=== PATIENT | male | born 1935 | race Caucasian/White ===

== ENCOUNTER 2017-08-03 20:24 | Inpatient (IN) | payer MEDICARE ==
[~2017-08-03] VITALS: Ht 175.3 cm; Wt 98.9 kg
[~2017-08-03 20:24] MED LIST: ADV50250 IH; ALBU8.5H4 IH; ASPI-1265 PO; CHOL50006 PO; CYAN100087 PO; FLO0.4C PO; FOLI0.4T2 PO; HCTZ25T PO; LISI40TA4 PO; METR500T PO; MULT-785 PO; SYN0.075T PO; VITA400T10 PO; VITC500T PO
[2017-08-03] MEDS ORDERED: normal saline 1000ML IV soln IVB ONE ×2 (21:25→22:00)
[2017-08-03] MEDS ORDERED: ondansetron/PF 4mg/2ml inj IV ONE (21:25)
[2017-08-03] MEDS ORDERED: morphine 4 MG/ML inj SYRINge IV ONE (21:25)
[2017-08-03] MEDS ORDERED: piperacillin/tazo 3.375gm/50ml 50 ML IV ONE (22:00)
[2017-08-03 22:10] LABS: BASOPHILS % (AUTO) 0.4 % (0-1); EOSINOPHILS % (AUTO) 0.3 % (0-6); HEMATOCRIT 42.2 % (42.0-52.0); HEMOGLOBIN 14.6 g/dl (14.0-17.9); LYMPHOCYTES # (AUTO) 1.3 X10'3 (1.1-4.8); LYMPHOCYTES % (AUTO) 13.9 % (21-51); MEAN CORPUSCULAR HEMOGLOBIN 31.6 PG (27.0-31.0); MEAN CORPUSCULAR HGB CONC 34.5 % (33.0-36.5); MEAN CORPUSCULAR VOLUME 91.5 FL (78-98); MEAN PLATELET VOLUME 7.1 FL (7.4-10.4); MONOCYTES # (AUTO) 0.2 X10'3 (0-0.9); MONOCYTES % (AUTO) 2.7 % (2-12); NEUTROPHILS # (AUTO) 7.7 X10'3 (1.8-7.7); NEUTROPHILS % (AUTO) 82.7 % (42-75); PLATELET COUNT 188 X10'3 (140-440); RED BLOOD COUNT 4.62 X10'6 (4.70-6.10); WHITE BLOOD COUNT 9.3 X10'3 (4.5-11.0)
[2017-08-03 22:22] LABS: PARTIAL THROMBOPLASTIN TIME 21 SECONDS (22-32); PROTHROMBIN TIME 9.9 SECONDS (9.0-12.0)
[2017-08-03 22:25] LABS: ALANINE AMINOTRANSFERASE 49 U/L (12-78); ALBUMIN 2.8 G/DL (3.4-5.0); ALBUMIN/GLOBULIN RATIO 0.7 (1.1-1.5); ALKALINE PHOSPHATASE 55 IU/L (46-116); ANION GAP 10 (8-16); ASPARTATE AMINO TRANSFERASE 23 U/L (10-37); BILIRUBIN,TOTAL 0.3 MG/DL (0.1-1.0); BLOOD UREA NITROGEN 35 MG/DL (7-18); BUN/CREATININE RATIO 22.2 (5.4-32.0); CALCIUM 8.8 MG/DL (8.5-10.1); CHLORIDE 105 MMOL/L (99-107); CREATININE 1.58 MG/DL (0.60-1.10); GLUCOSE 142 MG/DL (70-104); LIPASE 586 U/L (73-393); MAGNESIUM 1.4 MG/DL (1.5-2.4); POTASSIUM 4.8 MMOL/L (3.5-5.1); SODIUM 142 MMOL/L (135-145); TOTAL CARBON DIOXIDE 27.5 MMOL/L (24-32); TOTAL PROTEIN 6.8 G/DL (6.4-8.2); eGFR 42 ML/MIN
[2017-08-03] MEDS ORDERED: ringers solution, lacted 1,000 ML IV SCH (22:54)
[2017-08-03] MEDS ORDERED: ondansetron/PF 4mg/2ml inj IV PRN (22:55)
[2017-08-03] MEDS ORDERED: meperidine/PF 50mg/ml syringe IV PRN ×3 (22:55)
[2017-08-03] MEDS ORDERED: proCHLORperazine 10 MG/2 ml inj IV PRN (22:55)
[2017-08-03] MEDS ORDERED: morphine 4 MG/ML inj SYRINge IV PRN ×2 (22:55)
[2017-08-03] MEDS ORDERED: BUPIVAcaine/PF 2.5 mg/ml (0.25%) 30ml vial ONE (23:01)
[2017-08-03] MEDS ORDERED: LIDOcaine 1% 30ml preserv. free vial ONE (23:01)
[2017-08-03] MEDS ORDERED: midazolam 2 mg/2 ml injection ONE (23:03)
[2017-08-03] MEDS ORDERED: fentaNYL /PF 50mcg/ml 5ml ampule ONE (23:03)
[2017-08-03] MEDS ORDERED: desflurane 240ml liquid inh. IH ONE ×2 (23:05)
[2017-08-04] VITALS (26 sets, daily range): BP systolic 81–180; BP diastolic 40–88
[2017-08-04] MEDS ORDERED: glycopyrrolate 0.2mg/ml inj ONE (00:46)
[2017-08-04] MEDS ORDERED: LIDOcaine 2% (20mg/ml) 5ml vial ONE (00:46)
[2017-08-04] MEDS ORDERED: neostigmine methylsulfate 1 MG/ML 10ml vial ONE (00:46)
[2017-08-04] MEDS ORDERED: rocuronium 10mg/ml inj IV ONE (00:47)
[2017-08-04] MEDS ORDERED: propofol inj 20 ML IV ONE (00:47)
[2017-08-04] MEDS ORDERED: morphine 10mg/ml inj. ONE (00:47)
[2017-08-04] MEDS ORDERED: ondansetron/PF 4mg/2ml inj IV PRN (00:55)
[2017-08-04] MEDS ORDERED: CADD PCA waste documentation MC PRN (00:55)
[2017-08-04] MEDS ORDERED: naloxone 0.4 mg/ml inj IV PRN (00:55)
[2017-08-04] MEDS: HYDROmorphone/NS 1 mg/ml CADD 50 ML IV SCH ×2 (00:55→01:00)
[2017-08-04] MEDS: diltiazem-NS 100mg/100ml 100 ML IV SCH ×2 (01:20→21:45)
[2017-08-04] MEDS ORDERED: MIDAZolam 5mg/ml 2ml vial ONE (01:21)
[2017-08-04] MEDS ORDERED: morphine 4 MG/ML inj SYRINge ONE (01:25)
[2017-08-04] MEDS ORDERED: propofol 1000mg/100ml bottle 100 ML IV PRN (01:27)
[2017-08-04] MEDS ORDERED: midazolam 2 mg/2 ml injection IV PRN (01:30)
[2017-08-04] MEDS ORDERED: fentaNYL/PF 50MCG/1 ML 2ML syringe IV PRN (01:30)
[2017-08-04] MEDS ORDERED: FENTANYL-0.9 % NACL/PF 100 ML IV PRN (02:14)
[2017-08-04 02:30] LABS: ABG BASE EXCESS -7.2 mmol/L (-2.0-3.0); ABG HCO3 17.8 mmol/L (22.0-26.0); ABG OXYGEN SATURATION 93.1 % (95-98); ABG PCO2 (T) 33.5 mmHg (35.0-48.0); ABG PO2 (T) 69.9 mmHg (83-108); FCOHb 0.7 % (0.5-1.5); FMetHb 0.3 % (0.3-1.12); FO2Hb 92.2 % (94-100); MINUTE VOLUME 11 L/min; PATIENT TEMPERATURE 36.2; PEEP 5 cm H2O; RESPIRATORY RATE 16 b/min; RESPIRATORY RATE (OBSERVED) 18 b/min; TIDAL VOLUME 500 mL; TOTAL HEMOGLOBIN 13.7 G/dl (14.0-18.0)
[2017-08-04] MEDS ORDERED: potassium cl 20mEq in 1/2 NS 1,000 ML IV ONE (02:51)
[2017-08-04] MEDS: piperacillin/tazo 3.375gm/50ml 50 ML IV SCH ×2 (02:58→08:21)
[2017-08-04] MEDS: potassium cl 20mEq in 1/2 NS 1,000 ML IV SCH ×3 (02:58→19:37)
[2017-08-04] MEDS: midazolam 100mg in NS 100ml 100 ML IV PRN ×2 (03:38→23:38)
[2017-08-04] MEDS ORDERED: normal saline 1000ml 1,000 ML IV ONE (04:35)
[2017-08-04 05:00] LABS: BASOPHILS % (AUTO) 0.1 % (0-1); EOSINOPHILS % (AUTO) 0.2 % (0-6); HEMATOCRIT 39.3 % (42.0-52.0); HEMOGLOBIN 13.4 g/dl (14.0-17.9); LYMPHOCYTES # (AUTO) 0.4 X10'3 (1.1-4.8); LYMPHOCYTES % (AUTO) 10.1 % (21-51); MEAN CORPUSCULAR HEMOGLOBIN 31.3 PG (27.0-31.0); MEAN CORPUSCULAR HGB CONC 34.2 % (33.0-36.5); MEAN CORPUSCULAR VOLUME 91.6 FL (78-98); MEAN PLATELET VOLUME 7.7 FL (7.4-10.4); MONOCYTES # (AUTO) 0.2 X10'3 (0-0.9); MONOCYTES % (AUTO) 6.9 % (2-12); NEUTROPHILS % (AUTO) 82.7 % (42-75); PLATELET COUNT 147 X10'3 (140-440); RED BLOOD COUNT 4.29 X10'6 (4.70-6.10); RED CELL DISTRIBUTION WIDTH 13.9 % (11.5-14.5); WHITE BLOOD COUNT 3.6 X10'3 (4.5-11.0)
[2017-08-04 05:38] LABS: ALBUMIN 2.1 G/DL (3.4-5.0); ANION GAP 13 (8-16); BLOOD UREA NITROGEN 34 MG/DL (7-18); BUN/CREATININE RATIO 16.9 (5.4-32.0); CALCIUM 7.7 MG/DL (8.5-10.1); CHLORIDE 110 MMOL/L (99-107); CREATININE 2.01 MG/DL (0.60-1.10); GLUCOSE 140 MG/DL (70-104); POTASSIUM 4.5 MMOL/L (3.5-5.1); SODIUM 144 MMOL/L (135-145); TOTAL CARBON DIOXIDE 21.2 MMOL/L (24-32); eGFR 32 ML/MIN
[2017-08-04] MEDS: lactobacillus rhamnosus 10,000 MMU CELLS/CAPSULE PO SCH ×2 (08:00→19:40)
[2017-08-04] MEDS ORDERED: albumin (human) 25% 100 ML IV solution IV ONE (10:10)
[2017-08-04] MEDS: NORepinephrine 8mg/ 250ml NS 250 ML IV SCH ×2 (10:13→20:04)
[2017-08-04 10:45] LABS: BASOPHILS % (AUTO) 0.1 % (0-1); EOSINOPHILS % (AUTO) 0.6 % (0-6); HEMATOCRIT 35.8 % (42.0-52.0); HEMOGLOBIN 12.1 g/dl (14.0-17.9); LYMPHOCYTES # (AUTO) 0.8 X10'3 (1.1-4.8); LYMPHOCYTES % (AUTO) 10.3 % (21-51); MEAN CORPUSCULAR HEMOGLOBIN 30.9 PG (27.0-31.0); MEAN CORPUSCULAR HGB CONC 33.8 % (33.0-36.5); MEAN CORPUSCULAR VOLUME 91.4 FL (78-98); MEAN PLATELET VOLUME 7.1 FL (7.4-10.4); MONOCYTES # (AUTO) 0.4 X10'3 (0-0.9); NEUTROPHILS # (AUTO) 6.3 X10'3 (1.8-7.7); PLATELET COUNT 147 X10'3 (140-440); RED BLOOD COUNT 3.91 X10'6 (4.70-6.10); RED CELL DISTRIBUTION WIDTH 14.2 % (11.5-14.5); WHITE BLOOD COUNT 7.5 X10'3 (4.5-11.0)
[2017-08-04 11:04] LABS: ALANINE AMINOTRANSFERASE 30 U/L (12-78); ALBUMIN 1.7 G/DL (3.4-5.0); ALBUMIN/GLOBULIN RATIO 0.6 (1.1-1.5); ALKALINE PHOSPHATASE 32 IU/L (46-116); ANION GAP 10 (8-16); ASPARTATE AMINO TRANSFERASE 15 U/L (10-37); BILIRUBIN,TOTAL 0.7 MG/DL (0.1-1.0); BLOOD UREA NITROGEN 38 MG/DL (7-18); BUN/CREATININE RATIO 15.7 (5.4-32.0); CALCIUM 7.3 MG/DL (8.5-10.1); CHLORIDE 111 MMOL/L (99-107); CREATININE 2.42 MG/DL (0.60-1.10); GLUCOSE 123 MG/DL (70-104); POTASSIUM 4.5 MMOL/L (3.5-5.1); SODIUM 144 MMOL/L (135-145); TOTAL CARBON DIOXIDE 23.1 MMOL/L (24-32); TOTAL PROTEIN 4.5 G/DL (6.4-8.2); TROPONIN I 0.08 NG/ML (0.0-0.05); eGFR 26 ML/MIN
[2017-08-04 11:11] LABS: ABG BASE EXCESS -5.7 mmol/L (-2.0-3.0); ABG HCO3 18.7 mmol/L (22.0-26.0); ABG OXYGEN SATURATION 97.5 % (95-98); ABG PCO2 (T) 33.1 mmHg (35.0-48.0); FCOHb 0.1 % (0.5-1.5); FMetHb 0.3 % (0.3-1.12); FO2Hb 97.1 % (94-100); MINUTE VOLUME 13 L/min; PEEP 5 cm H2O; RESPIRATORY RATE (OBSERVED) 20 b/min; TOTAL HEMOGLOBIN 12.4 G/dl (14.0-18.0)
[2017-08-04 11:11] LABS: OXYGEN SATURATION (MIXED VEN) 71.8 % (60-80); PO2 MIXED VENOUS (TEMP COR) 37.9 mmHg (35-46)
[2017-08-04 11:25] LABS: TOTAL CELLS COUNTED 100
[2017-08-04 11:26] LABS: PLATELET ESTIMATE NORMAL; TOXIC VACUOLATION 1+
[2017-08-04] MEDS ORDERED: vasopressin inj. 60 UNIT in normal saline 100ml IV soln 97 ML IV SCH (13:00)
[2017-08-04] MEDS: hydrocortisone sod succ/PF 100mg/2ml inj. IV SCH ×2 (14:23→19:39)
[2017-08-04] MEDS: piperacillin/tazobactam inj. 2.25 GM in normal saline 50ml IV IV SCH ×2 (14:23→19:37)
[2017-08-04] MEDS ORDERED: PYRI60TA2 PO (17:06)
[2017-08-04] MEDS: pantoprazole 40 MG vial IV SCH (19:40)
[2017-08-04 20:11] LABS: OXYGEN SATURATION (MIXED VEN) 73.6 % (60-80); PO2 MIXED VENOUS (TEMP COR) 41.4 mmHg (35-46)
[2017-08-05] VITALS (23 sets, daily range): BP systolic 102–182; BP diastolic 44–87
[2017-08-05] MEDS: piperacillin/tazobactam inj. 2.25 GM in normal saline 50ml IV IV SCH ×4 (01:15→20:29)
[2017-08-05] MEDS: mineral oil/petrolatum ophthal oint EACHEYE SCH ×4 (01:15→20:00)
[2017-08-05] MEDS: hydrocortisone sod succ/PF 100mg/2ml inj. IV SCH ×4 (01:16→20:27)
[2017-08-05 02:36] LABS: OXYGEN SATURATION (MIXED VEN) 65.4 % (60-80); PO2 MIXED VENOUS (TEMP COR) 35.4 mmHg (35-46)
[2017-08-05 02:41] LABS: ABG BASE EXCESS -2.7 mmol/L (-2.0-3.0); ABG PCO2 (T) 39.1 mmHg (35.0-48.0); ABG PH (T) 7.371 (7.350-7.450); ABG PO2 (T) 105.1 mmHg (83-108); FCOHb 0.3 % (0.5-1.5); FMetHb 0.3 % (0.3-1.12); FO2Hb 96.4 % (94-100); MINUTE VOLUME 10 L/min; PATIENT TEMPERATURE 37.6; PEEP 5 cm H2O; RESPIRATORY RATE 10 b/min; RESPIRATORY RATE (OBSERVED) 17 b/min; TIDAL VOLUME 500 mL; TOTAL HEMOGLOBIN 11.6 G/dl (14.0-18.0)
[2017-08-05 02:45] LABS: BASOPHILS % (AUTO) 0.2 % (0-1); EOSINOPHILS % (AUTO) 0.2 % (0-6); HEMATOCRIT 32.3 % (42.0-52.0); HEMOGLOBIN 10.9 g/dl (14.0-17.9); LYMPHOCYTES # (AUTO) 0.4 X10'3 (1.1-4.8); LYMPHOCYTES % (AUTO) 3.7 % (21-51); MEAN CORPUSCULAR HEMOGLOBIN 31.2 PG (27.0-31.0); MEAN CORPUSCULAR HGB CONC 33.9 % (33.0-36.5); MEAN CORPUSCULAR VOLUME 92.1 FL (78-98); MEAN PLATELET VOLUME 6.8 FL (7.4-10.4); MONOCYTES # (AUTO) 0.3 X10'3 (0-0.9); MONOCYTES % (AUTO) 2.9 % (2-12); NEUTROPHILS # (AUTO) 10.4 X10'3 (1.8-7.7); PLATELET COUNT 134 X10'3 (140-440); RED BLOOD COUNT 3.51 X10'6 (4.70-6.10); RED CELL DISTRIBUTION WIDTH 14.8 % (11.5-14.5); WHITE BLOOD COUNT 11.2 X10'3 (4.5-11.0)
[2017-08-05 02:56] LABS: ALBUMIN 2.3 G/DL (3.4-5.0); ANION GAP 10 (8-16); BLOOD UREA NITROGEN 30 MG/DL (7-18); BUN/CREATININE RATIO 14.7 (5.4-32.0); CHLORIDE 108 MMOL/L (99-107); CREATININE 2.04 MG/DL (0.60-1.10); GLUCOSE 142 MG/DL (70-104); POTASSIUM 4.8 MMOL/L (3.5-5.1); SODIUM 143 MMOL/L (135-145); TOTAL CARBON DIOXIDE 24.7 MMOL/L (24-32); eGFR 32 ML/MIN
[2017-08-05 03:10] LABS: TOTAL CELLS COUNTED 100
[2017-08-05 03:11] LABS: PLATELET ESTIMATE DECREASED
[2017-08-05 03:13] LABS: TOXIC VACUOLATION 1+
[2017-08-05] MEDS: potassium cl 20mEq in 1/2 NS 1,000 ML IV SCH ×2 (05:33→16:25)
[2017-08-05] MEDS: albuterol 2.5 MG/3 ML nebule NEB SCH ×2 (07:05→11:13)
[2017-08-05] MEDS: pantoprazole 40 MG vial IV SCH ×2 (07:39→20:27)
[2017-08-05] MEDS: lactobacillus rhamnosus 10,000 MMU CELLS/CAPSULE PO SCH ×2 (07:39→20:00)
[2017-08-05] MEDS ORDERED: morphine/NS 5 mg/ml CADD 50 ML IV SCH (11:45)
[2017-08-05] MEDS: MORPHINE CADD 5 MG/ML 50ML IV SCH ×4 (15:00→23:00)
[2017-08-05] MEDS ORDERED: labetalol 20mg/4ml (5mg/ml) syringe IV PRN (16:55)
[2017-08-05] MEDS: diltiazem-NS 100mg/100ml 100 ML IV SCH (17:45)
[2017-08-05] MEDS ORDERED: normal saline 1000ml 1,000 ML IV ONE (17:45)
[2017-08-06] VITALS (18 sets, daily range): BP systolic 115–178; BP diastolic 48–92
[2017-08-06] MEDS: MORPHINE CADD 5 MG/ML 50ML IV SCH ×11 (01:00→23:00)
[2017-08-06] MEDS: mineral oil/petrolatum ophthal oint EACHEYE SCH ×4 (02:00→20:00)
[2017-08-06] MEDS: hydrocortisone sod succ/PF 100mg/2ml inj. IV SCH ×4 (02:32→20:23)
[2017-08-06] MEDS: potassium cl 20mEq in 1/2 NS 1,000 ML IV SCH ×3 (02:32→23:16)
[2017-08-06] MEDS: piperacillin/tazobactam inj. 2.25 GM in normal saline 50ml IV IV SCH ×4 (02:32→20:24)
[2017-08-06 02:55] LABS: BASOPHILS % (AUTO) 0.1 % (0-1); EOSINOPHILS # (AUTO) 0.1 X10'3 (0-0.9); EOSINOPHILS % (AUTO) 0.8 % (0-6); HEMATOCRIT 29.9 % (42.0-52.0); HEMOGLOBIN 10.3 g/dl (14.0-17.9); LYMPHOCYTES # (AUTO) 0.4 X10'3 (1.1-4.8); MEAN CORPUSCULAR HEMOGLOBIN 31.6 PG (27.0-31.0); MEAN CORPUSCULAR HGB CONC 34.4 % (33.0-36.5); MEAN CORPUSCULAR VOLUME 91.9 FL (78-98); MONOCYTES # (AUTO) 0.3 X10'3 (0-0.9); MONOCYTES % (AUTO) 2.6 % (2-12); NEUTROPHILS # (AUTO) 11.6 X10'3 (1.8-7.7); NEUTROPHILS % (AUTO) 93.5 % (42-75); PLATELET COUNT 120 X10'3 (140-440); RED BLOOD COUNT 3.26 X10'6 (4.70-6.10); RED CELL DISTRIBUTION WIDTH 14.5 % (11.5-14.5); WHITE BLOOD COUNT 12.4 X10'3 (4.5-11.0)
[2017-08-06 03:06] LABS: ALBUMIN 1.8 G/DL (3.4-5.0); ANION GAP 7 (8-16); BLOOD UREA NITROGEN 27 MG/DL (7-18); BUN/CREATININE RATIO 17.2 (5.4-32.0); CALCIUM 8.5 MG/DL (8.5-10.1); CHLORIDE 107 MMOL/L (99-107); CREATININE 1.57 MG/DL (0.60-1.10); GLUCOSE 121 MG/DL (70-104); POTASSIUM 4.4 MMOL/L (3.5-5.1); SODIUM 138 MMOL/L (135-145); TOTAL CARBON DIOXIDE 23.6 MMOL/L (24-32); eGFR 43 ML/MIN
[2017-08-06 05:07] LABS: TOTAL CELLS COUNTED 100
[2017-08-06 05:08] LABS: PLATELET ESTIMATE DECREASED
[2017-08-06 07:35] LABS: MAGNESIUM 1.6 MG/DL (1.5-2.4); PHOSPHORUS 3.3 MG/DL (2.3-4.5)
[2017-08-06] MEDS: pantoprazole 40 MG vial IV SCH ×2 (07:35→20:23)
[2017-08-06] MEDS: lactobacillus rhamnosus 10,000 MMU CELLS/CAPSULE PO SCH ×2 (07:43→20:00)
[2017-08-06] MEDS ORDERED: total parenteral nutrition 1 EACH, calcium gluconate 12 MEQ, magnesium 16 MEQ, sodium 8... IV SCH ×14 (11:30)
[2017-08-06] MEDS ORDERED: vasopressin inj. 60 UNIT in normal saline 100ml IV soln 97 ML IV SCH (12:30)
[2017-08-06] MEDS ORDERED: Dextrose 10%-water IV solution 1,000 ML IV PRN (14:18)
[2017-08-06] MEDS: fat emulsion IV 100 ML, MVI, adult No.4 with vit. K 10 ML, Trace element-5 inj. 1 ML in... IV SCH ×4 (15:09)
[2017-08-06] MEDS: albuterol 2.5 MG/3 ML nebule NEB PRN (21:32)
[2017-08-06] MEDS ORDERED: potassium cl 20mEq in 1/2 NS 1,000 ML IV ONE (23:07)
[2017-08-07] VITALS: BP 162/84
[2017-08-07] MEDS: MORPHINE CADD 5 MG/ML 50ML IV SCH ×12 (01:00→23:00)
[2017-08-07] MEDS ORDERED: piperacillin-tazo 2.25gm/50ml 50 ML IV ONE (01:47)
[2017-08-07] MEDS: piperacillin/tazobactam inj. 2.25 GM in normal saline 50ml IV IV SCH ×4 (02:00→20:19)
[2017-08-07] MEDS: mineral oil/petrolatum ophthal oint EACHEYE SCH ×4 (02:00→21:39)
[2017-08-07] MEDS: hydrocortisone sod succ/PF 100mg/2ml inj. IV SCH ×4 (02:21→20:19)
[2017-08-07] MEDS ORDERED: Dextrose 10%-water IV solution 1,000 ML IV PRN (03:51)
[2017-08-07 06:27] LABS: BASOPHILS # (AUTO) 0.1 X10'3 (0-0.2); BASOPHILS % (AUTO) 0.3 % (0-1); EOSINOPHILS # (AUTO) 0.2 X10'3 (0-0.9); EOSINOPHILS % (AUTO) 1.2 % (0-6); HEMATOCRIT 34.4 % (42.0-52.0); HEMOGLOBIN 11.8 g/dl (14.0-17.9); LYMPHOCYTES # (AUTO) 0.4 X10'3 (1.1-4.8); LYMPHOCYTES % (AUTO) 2.2 % (21-51); MEAN CORPUSCULAR HEMOGLOBIN 31.8 PG (27.0-31.0); MEAN CORPUSCULAR HGB CONC 34.4 % (33.0-36.5); MEAN CORPUSCULAR VOLUME 92.4 FL (78-98); MEAN PLATELET VOLUME 7.3 FL (7.4-10.4); MONOCYTES # (AUTO) 0.5 X10'3 (0-0.9); MONOCYTES % (AUTO) 3.1 % (2-12); NEUTROPHILS # (AUTO) 15.9 X10'3 (1.8-7.7); NEUTROPHILS % (AUTO) 93.2 % (42-75); PLATELET COUNT 124 X10'3 (140-440); RED BLOOD COUNT 3.72 X10'6 (4.70-6.10); RED CELL DISTRIBUTION WIDTH 13.9 % (11.5-14.5); WHITE BLOOD COUNT 17.1 X10'3 (4.5-11.0)
[2017-08-07 06:40] LABS: ALANINE AMINOTRANSFERASE 25 U/L (12-78); ALBUMIN/GLOBULIN RATIO 0.5 (1.1-1.5); ALKALINE PHOSPHATASE 66 IU/L (46-116); ANION GAP 9 (8-16); ASPARTATE AMINO TRANSFERASE 15 U/L (10-37); BILIRUBIN,TOTAL 0.5 MG/DL (0.1-1.0); BLOOD UREA NITROGEN 28 MG/DL (7-18); BUN/CREATININE RATIO 19.6 (5.4-32.0); CALCIUM 9.1 MG/DL (8.5-10.1); CHLORIDE 105 MMOL/L (99-107); CREATININE 1.43 MG/DL (0.60-1.10); GLUCOSE 140 MG/DL (70-104); MAGNESIUM 1.8 MG/DL (1.5-2.4); PHOSPHORUS 3.1 MG/DL (2.3-4.5); POTASSIUM 4.2 MMOL/L (3.5-5.1); PREALBUMIN 13.7 MG/DL (19-36); SODIUM 140 MMOL/L (135-145); TOTAL CARBON DIOXIDE 26.2 MMOL/L (24-32); TOTAL PROTEIN 6.4 G/DL (6.4-8.2); TRIGLYCERIDES 206 MG/DL (20-135); eGFR 48 ML/MIN
[2017-08-07 07:30] VITALS: BP 173/94
[2017-08-07 07:56] LABS: TOTAL CELLS COUNTED 100
[2017-08-07 07:57] LABS: PLATELET ESTIMATE DECREASED
[2017-08-07] MEDS ORDERED: enoxaparin 40mg/0.4ml syringe SUBCUT SCH (08:00)
[2017-08-07] MEDS ORDERED: methylnaltrexone br 12mg/0.6ml inj***SubQ only SQ SCH (08:00)
[2017-08-07] MEDS: pantoprazole 40 MG vial IV SCH ×2 (08:00→20:19)
[2017-08-07] MEDS: lactobacillus rhamnosus 10,000 MMU CELLS/CAPSULE PO SCH ×2 (08:00→20:27)
[2017-08-07 12:00] VITALS: BP 163/80
[2017-08-07] MEDS: potassium cl 20mEq in 1/2 NS 1,000 ML IV SCH ×2 (12:40→20:39)
[2017-08-07] MEDS ORDERED: PYRI60TA2 PO (13:19)
[2017-08-07] MEDS ORDERED: LISI40TA4 PO ×2 (13:22→13:23)
[2017-08-07] MEDS ORDERED: LEVO75TA PO (13:22)
[2017-08-07] MEDS: albuterol 2.5 MG/3 ML nebule NEB PRN ×2 (14:30→21:50)
[2017-08-07 14:37] LABS: AMYLASE 113 U/L (25-115); CREATINE KINASE 64 U/L (39-308); LACTATE DEHYDROGENASE 194 U/L (85-227); LIPASE 557 U/L (73-393)
[2017-08-07 14:41] LABS: TROPONIN I 1.12 NG/ML (0.0-0.05)
[2017-08-07] MEDS: lisinopril 20mg tablet PO SCH (15:01)
[2017-08-07] MEDS ORDERED: heparin 10,000 units/1 ML INJ IV ONE (17:45)
[2017-08-07 18:33] LABS: BASOPHILS % (AUTO) 0.1 % (0-1); EOSINOPHILS # (AUTO) 0.2 X10'3 (0-0.9); EOSINOPHILS % (AUTO) 1.4 % (0-6); HEMATOCRIT 33.8 % (42.0-52.0); HEMOGLOBIN 11.3 g/dl (14.0-17.9); LYMPHOCYTES # (AUTO) 0.2 X10'3 (1.1-4.8); LYMPHOCYTES % (AUTO) 1.6 % (21-51); MEAN CORPUSCULAR HGB CONC 33.4 % (33.0-36.5); MEAN CORPUSCULAR VOLUME 92.6 FL (78-98); MEAN PLATELET VOLUME 7.4 FL (7.4-10.4); MONOCYTES # (AUTO) 0.3 X10'3 (0-0.9); MONOCYTES % (AUTO) 2.5 % (2-12); NEUTROPHILS # (AUTO) 12.7 X10'3 (1.8-7.7); NEUTROPHILS % (AUTO) 94.4 % (42-75); PLATELET COUNT 139 X10'3 (140-440); RED BLOOD COUNT 3.65 X10'6 (4.70-6.10); RED CELL DISTRIBUTION WIDTH 14.1 % (11.5-14.5); WHITE BLOOD COUNT 13.4 X10'3 (4.5-11.0)
[2017-08-07 18:42] LABS: INR 0.9 INR; PARTIAL THROMBOPLASTIN TIME 23 SECONDS (22-32); PROTHROMBIN TIME 9.8 SECONDS (9.0-12.0)
[2017-08-07 19:00] VITALS: BP 148/81
[2017-08-07] MEDS: fat emulsion IV 100 ML, MVI, adult No.4 with vit. K 10 ML, Trace element-5 inj. 1 ML in... IV SCH ×4 (20:40)
[2017-08-07] MEDS: aspirin 300mg supp.rect RC SCH (21:34)
[2017-08-08 00:08] VITALS: BP_SYST 146; BP_SYST 148; BP_DIAS 66; BP_DIAS 81
[2017-08-08] MEDS: MORPHINE CADD 5 MG/ML 50ML IV SCH ×12 (01:00→23:00)
[2017-08-08] MEDS: mineral oil/petrolatum ophthal oint EACHEYE SCH ×3 (02:00→14:00)
[2017-08-08] MEDS: hydrocortisone sod succ/PF 100mg/2ml inj. IV SCH ×4 (02:27→20:43)
[2017-08-08] MEDS: piperacillin/tazobactam inj. 2.25 GM in normal saline 50ml IV IV SCH ×2 (02:34→07:26)
[2017-08-08 03:10] LABS: BASOPHILS % (AUTO) 0.1 % (0-1); EOSINOPHILS # (AUTO) 0.1 X10'3 (0-0.9); EOSINOPHILS % (AUTO) 0.8 % (0-6); HEMATOCRIT 31.3 % (42.0-52.0); HEMOGLOBIN 10.8 g/dl (14.0-17.9); LYMPHOCYTES # (AUTO) 0.3 X10'3 (1.1-4.8); LYMPHOCYTES % (AUTO) 2.4 % (21-51); MEAN CORPUSCULAR HEMOGLOBIN 31.5 PG (27.0-31.0); MEAN CORPUSCULAR HGB CONC 34.4 % (33.0-36.5); MEAN CORPUSCULAR VOLUME 91.6 FL (78-98); MEAN PLATELET VOLUME 7.3 FL (7.4-10.4); MONOCYTES # (AUTO) 0.6 X10'3 (0-0.9); MONOCYTES % (AUTO) 5.5 % (2-12); NEUTROPHILS # (AUTO) 10.3 X10'3 (1.8-7.7); NEUTROPHILS % (AUTO) 91.2 % (42-75); PLATELET COUNT 134 X10'3 (140-440); RED BLOOD COUNT 3.41 X10'6 (4.70-6.10); RED CELL DISTRIBUTION WIDTH 14.2 % (11.5-14.5); WHITE BLOOD COUNT 11.3 X10'3 (4.5-11.0)
[2017-08-08 03:27] LABS: ALANINE AMINOTRANSFERASE 28 U/L (12-78); ALBUMIN 1.9 G/DL (3.4-5.0); ALBUMIN/GLOBULIN RATIO 0.5 (1.1-1.5); ALKALINE PHOSPHATASE 78 IU/L (46-116); ANION GAP 9 (8-16); ASPARTATE AMINO TRANSFERASE 16 U/L (10-37); BILIRUBIN,TOTAL 0.4 MG/DL (0.1-1.0); BLOOD UREA NITROGEN 34 MG/DL (7-18); BUN/CREATININE RATIO 24.6 (5.4-32.0); CHLORIDE 103 MMOL/L (99-107); CREATININE 1.38 MG/DL (0.60-1.10); GLUCOSE 196 MG/DL (70-104); MAGNESIUM 1.9 MG/DL (1.5-2.4); PHOSPHORUS 2.5 MG/DL (2.3-4.5); POTASSIUM 3.4 MMOL/L (3.5-5.1); SODIUM 141 MMOL/L (135-145); TOTAL CARBON DIOXIDE 29.1 MMOL/L (24-32); eGFR 50 ML/MIN
[2017-08-08 03:30] LABS: TROPONIN I 0.62 NG/ML (0.0-0.05)
[2017-08-08] MEDS: heparin 10,000 units/1 ML INJ IV PRN ×3 (03:50→12:39)
[2017-08-08] MEDS: albuterol 2.5 MG/3 ML nebule NEB PRN ×4 (04:14→20:24)
[2017-08-08 07:04] VITALS: BP 146/74
[2017-08-08] MEDS: pantoprazole 40 MG vial IV SCH (07:29)
[2017-08-08] MEDS: lisinopril 20mg tablet PO SCH (07:29)
[2017-08-08] MEDS: lactobacillus rhamnosus 10,000 MMU CELLS/CAPSULE PO SCH ×2 (07:29→20:00)
[2017-08-08] MEDS ORDERED: glucagon, human recombinant 1mg kit SUBCUT PRN (08:30)
[2017-08-08] MEDS ORDERED: MESSAGE TO PHARMACY PO ONE (08:30)
[2017-08-08] MEDS ORDERED: insulin Lispro (HumaLOG) vial - multi-dose SQ SCH (08:30)
[2017-08-08] MEDS ORDERED: dextrose 50%-water 50ml dispensing syringe IV PRN ×2 (08:30)
[2017-08-08] MEDS ORDERED: dextrose ORAL solution 15 GM/59 ML bottle PO PRN ×2 (08:30)
[2017-08-08 08:56] LABS: HEMOGLOBIN A1C 6.1 % (4.5-6.2)
[2017-08-08] MEDS: aspirin 300mg supp.rect RC SCH (10:05)
[2017-08-08 11:00] VITALS: BP 156/79
[2017-08-08] MEDS: piperacillin/tazo 3.375gm/50ml 50 ML IV SCH ×2 (14:00→20:42)
[2017-08-08 14:22] LABS: CLARITY,URINE CLEAR (Clear); COLOR,URINE YELLOW (Yellow); GLUCOSE, URINE NEGATIVE (Neg); KETONES,URINE NEGATIVE (Neg); LEUKOCYTE ESTERASE ,URINE NEGATIVE (Neg); NITRITES, URINE NEGATIVE (Neg); OCCULT BLOOD,URINE MODERATE (Neg); PROTEIN,URINE 30 mg/dl (Neg); UROBILINOGEN,URINE 0.2 E.U/dL (0.2-1.0)
[2017-08-08] MEDS: insulin regular, human vial - multi-dose SQ SCH ×2 (14:27→21:09)
[2017-08-08 14:30] LABS: BACTERIA,URINE NONE SEEN /HPF (Neg); MUCUS STRANDS NONE SEEN /LPF (Neg); RBC,URINE 0-2 /HPF (0-2); SQUAMOUS EPITHELIAL CELL,UR NONE SEEN /LPF (FEW); UA COLLECTION TYPE NON-SPECIFIED; WBC,URINE NONE SEEN /HPF (0-4)
[2017-08-08] MEDS: fat emulsion IV 100 ML, MVI, adult No.4 with vit. K 10 ML, Trace element-5 inj. 1 ML in... IV SCH ×4 (15:39)
[2017-08-08] MEDS: normal saline 500ml IV soln 1,000 ML IV SCH (17:45)
[2017-08-08 18:00] VITALS: BP 159/69
[2017-08-08] MEDS ORDERED: potassium Cl 40MEQ/NS 500ml 500 ML IV PRN (18:55)
[2017-08-08] MEDS ORDERED: potassium Cl 20 mEq SR tablet PO PRN (18:55)
[2017-08-08] MEDS: enoxaparin 40mg/0.4ml syringe SUBCUT SCH (20:44)
[2017-08-08 23:53] VITALS: BP 169/80
[2017-08-09] MEDS: MORPHINE CADD 5 MG/ML 50ML IV SCH ×12 (01:00→23:00)
[2017-08-09] MEDS: albuterol 2.5 MG/3 ML nebule NEB PRN ×4 (01:08→20:13)
[2017-08-09] MEDS: piperacillin/tazo 3.375gm/50ml 50 ML IV SCH ×4 (02:25→20:27)
[2017-08-09] MEDS: hydrocortisone sod succ/PF 100mg/2ml inj. IV SCH ×4 (02:25→20:28)
[2017-08-09] MEDS: insulin regular, human vial - multi-dose SQ SCH ×4 (02:45→20:00)
[2017-08-09 03:58] LABS: BASOPHILS % (AUTO) 0.2 % (0-1); EOSINOPHILS # (AUTO) 0.1 X10'3 (0-0.9); EOSINOPHILS % (AUTO) 0.8 % (0-6); HEMATOCRIT 31.3 % (42.0-52.0); HEMOGLOBIN 10.7 g/dl (14.0-17.9); LYMPHOCYTES # (AUTO) 0.5 X10'3 (1.1-4.8); LYMPHOCYTES % (AUTO) 4.6 % (21-51); MEAN CORPUSCULAR HEMOGLOBIN 31.1 PG (27.0-31.0); MEAN CORPUSCULAR VOLUME 91.4 FL (78-98); MEAN PLATELET VOLUME 7.3 FL (7.4-10.4); MONOCYTES # (AUTO) 0.6 X10'3 (0-0.9); MONOCYTES % (AUTO) 6.3 % (2-12); NEUTROPHILS # (AUTO) 8.9 X10'3 (1.8-7.7); NEUTROPHILS % (AUTO) 88.1 % (42-75); PLATELET COUNT 141 X10'3 (140-440); RED BLOOD COUNT 3.43 X10'6 (4.70-6.10); RED CELL DISTRIBUTION WIDTH 13.9 % (11.5-14.5); WHITE BLOOD COUNT 10.1 X10'3 (4.5-11.0)
[2017-08-09 04:12] LABS: ALANINE AMINOTRANSFERASE 66 U/L (12-78); ALBUMIN 1.8 G/DL (3.4-5.0); ALBUMIN/GLOBULIN RATIO 0.5 (1.1-1.5); ALKALINE PHOSPHATASE 89 IU/L (46-116); ANION GAP 6 (8-16); ASPARTATE AMINO TRANSFERASE 36 U/L (10-37); BILIRUBIN,TOTAL 0.5 MG/DL (0.1-1.0); BLOOD UREA NITROGEN 36 MG/DL (7-18); BUN/CREATININE RATIO 27.1 (5.4-32.0); CALCIUM 8.9 MG/DL (8.5-10.1); CHLORIDE 104 MMOL/L (99-107); CREATININE 1.33 MG/DL (0.60-1.10); GLUCOSE 164 MG/DL (70-104); MAGNESIUM 1.8 MG/DL (1.5-2.4); PHOSPHORUS 2.5 MG/DL (2.3-4.5); SODIUM 144 MMOL/L (135-145); TOTAL CARBON DIOXIDE 34.4 MMOL/L (24-32); TOTAL PROTEIN 5.7 G/DL (6.4-8.2); eGFR 52 ML/MIN
[2017-08-09 07:43] LABS: TOTAL CELLS COUNTED 100
[2017-08-09 07:44] LABS: HYPOCHROMASIA 1+; PLATELET ESTIMATE NORMAL; POLYCHROMASIA 1+; TOXIC GRANULATION 2+
[2017-08-09] MEDS: aspirin 300mg supp.rect RC SCH (08:00)
[2017-08-09] MEDS: K and/or MAG REPLACEMENT MC SCH (08:00)
[2017-08-09 08:03] VITALS: BP 181/83
[2017-08-09] MEDS: lisinopril 20mg tablet PO SCH (09:09)
[2017-08-09] MEDS: pantoprazole 40 MG vial IV SCH (09:09)
[2017-08-09] MEDS: enoxaparin 40mg/0.4ml syringe SUBCUT SCH ×2 (09:10→20:27)
[2017-08-09] MEDS: lactobacillus rhamnosus 10,000 MMU CELLS/CAPSULE PO SCH ×2 (09:23→20:28)
[2017-08-09] MEDS ORDERED: hydrALAZINE 20mg/ml inj. IV PRN (09:30)
[2017-08-09] MEDS ORDERED: Potassium Cl inj 40 MEQ in normal saline 250ml IV soln 230 ML IV ONE (09:30)
[2017-08-09] MEDS: fat emulsion IV 100 ML, MVI, adult No.4 with vit. K 10 ML, Trace element-5 inj. 1 ML in... IV SCH ×4 (10:10)
[2017-08-09] MEDS: potassium Cl 40MEQ/NS 500ml 500 ML IV PRN ×2 (10:12→14:59)
[2017-08-09] MEDS: normal saline 1000ml 1,000 ML IV SCH ×3 (10:12→22:56)
[2017-08-09 10:23] LABS: TROPONIN I 0.46 NG/ML (0.0-0.05)
[2017-08-09 11:00] VITALS: BP 188/92
[2017-08-09 17:00] VITALS: BP 165/88
[2017-08-09 18:00] VITALS: BP 178/74
[2017-08-09] MEDS: metoprolol tartrate 25mg tablet PO SCH (20:28)
[2017-08-09 22:00] VITALS: BP 156/74
[2017-08-10] VITALS: BP 144/58
[2017-08-10] MEDS: MORPHINE CADD 5 MG/ML 50ML IV SCH ×12 (01:00→23:00)
[2017-08-10] MEDS: piperacillin/tazo 3.375gm/50ml 50 ML IV SCH ×4 (01:45→20:20)
[2017-08-10] MEDS: hydrocortisone sod succ/PF 100mg/2ml inj. IV SCH ×4 (01:46→20:20)
[2017-08-10] MEDS: albuterol 2.5 MG/3 ML nebule NEB PRN ×3 (01:58→20:52)
[2017-08-10] MEDS: insulin regular, human vial - multi-dose SQ SCH ×4 (02:00→20:00)
[2017-08-10] MEDS: normal saline 1000ml 1,000 ML IV SCH (05:28)
[2017-08-10 05:51] LABS: ALANINE AMINOTRANSFERASE 102 U/L (12-78); ALBUMIN 1.9 G/DL (3.4-5.0); ALBUMIN/GLOBULIN RATIO 0.5 (1.1-1.5); ALKALINE PHOSPHATASE 88 IU/L (46-116); ANION GAP 8 (8-16); ASPARTATE AMINO TRANSFERASE 45 U/L (10-37); BILIRUBIN,TOTAL 0.6 MG/DL (0.1-1.0); BLOOD UREA NITROGEN 38 MG/DL (7-18); BUN/CREATININE RATIO 25.3 (5.4-32.0); CALCIUM 8.8 MG/DL (8.5-10.1); CHLORIDE 106 MMOL/L (99-107); GLUCOSE 117 MG/DL (70-104); MAGNESIUM 1.7 MG/DL (1.5-2.4); PHOSPHORUS 4.2 MG/DL (2.3-4.5); POTASSIUM 3.7 MMOL/L (3.5-5.1); SODIUM 145 MMOL/L (135-145); TOTAL CARBON DIOXIDE 30.6 MMOL/L (24-32); eGFR 45 ML/MIN
[2017-08-10 07:25] VITALS: BP 169/84
[2017-08-10] MEDS: pantoprazole 40 MG vial IV SCH (07:55)
[2017-08-10] MEDS: lactobacillus rhamnosus 10,000 MMU CELLS/CAPSULE PO SCH ×2 (07:55→20:19)
[2017-08-10] MEDS: lisinopril 20mg tablet PO SCH (07:56)
[2017-08-10] MEDS: metoprolol tartrate 25mg tablet PO SCH ×2 (07:56→20:19)
[2017-08-10] MEDS: enoxaparin 40mg/0.4ml syringe SUBCUT SCH ×2 (07:57→20:20)
[2017-08-10] MEDS: K and/or MAG REPLACEMENT MC SCH (08:00)
[2017-08-10] MEDS: aspirin 81mg tab.chew PO SCH (09:51)
[2017-08-10] MEDS ORDERED: HYDROcodone/acetaminophen 10/325mg tab PO PRN (10:00)
[2017-08-10 11:05] VITALS: BP 161/86
[2017-08-10] MEDS: normal saline 500ml IV soln 1,000 ML IV SCH (15:30)
[2017-08-10 18:00] VITALS: BP 164/76
[2017-08-10] MEDS: pyridostigmine br 60mg tablet PO SCH (20:00)
[2017-08-11] VITALS: BP 153/74
[2017-08-11] MEDS: MORPHINE CADD 5 MG/ML 50ML IV SCH ×9 (01:00→17:00)
[2017-08-11] MEDS: insulin regular, human vial - multi-dose SQ SCH ×3 (02:00→14:00)
[2017-08-11] MEDS: pyridostigmine br 60mg tablet PO SCH ×3 (02:00→14:00)
[2017-08-11] MEDS: normal saline 1000ml 1,000 ML IV SCH (02:40)
[2017-08-11] MEDS: piperacillin/tazo 3.375gm/50ml 50 ML IV SCH ×4 (02:53→14:00)
[2017-08-11] MEDS: hydrocortisone sod succ/PF 100mg/2ml inj. IV SCH ×3 (02:53→14:00)
[2017-08-11] MEDS: albuterol 2.5 MG/3 ML nebule NEB PRN ×2 (04:02→13:44)
[2017-08-11 06:27] LABS: ALANINE AMINOTRANSFERASE 81 U/L (12-78); ALBUMIN/GLOBULIN RATIO 0.5 (1.1-1.5); ALKALINE PHOSPHATASE 78 IU/L (46-116); ANION GAP 10 (8-16); ASPARTATE AMINO TRANSFERASE 28 U/L (10-37); BILIRUBIN,TOTAL 0.6 MG/DL (0.1-1.0); BLOOD UREA NITROGEN 41 MG/DL (7-18); BUN/CREATININE RATIO 26.5 (5.4-32.0); CALCIUM 8.8 MG/DL (8.5-10.1); CHLORIDE 105 MMOL/L (99-107); CREATININE 1.55 MG/DL (0.60-1.10); GLUCOSE 122 MG/DL (70-104); MAGNESIUM 1.8 MG/DL (1.5-2.4); PHOSPHORUS 4.3 MG/DL (2.3-4.5); POTASSIUM 3.3 MMOL/L (3.5-5.1); PREALBUMIN 21.9 MG/DL (19-36); SODIUM 145 MMOL/L (135-145); TOTAL CARBON DIOXIDE 30.4 MMOL/L (24-32); TOTAL PROTEIN 6.4 G/DL (6.4-8.2); TRIGLYCERIDES 231 MG/DL (20-135); eGFR 43 ML/MIN
[2017-08-11 07:40] VITALS: BP 143/66
[2017-08-11] MEDS: pantoprazole 40 MG vial IV SCH (07:55)
[2017-08-11] MEDS: metoprolol tartrate 25mg tablet PO SCH (07:56)
[2017-08-11] MEDS: lactobacillus rhamnosus 10,000 MMU CELLS/CAPSULE PO SCH (07:56)
[2017-08-11] MEDS: lisinopril 20mg tablet PO SCH (07:57)
[2017-08-11] MEDS: aspirin 81mg tab.chew PO SCH (07:58)
[2017-08-11] MEDS: potassium Cl 20 mEq SR tablet PO PRN ×2 (07:58→16:44)
[2017-08-11] MEDS: enoxaparin 40mg/0.4ml syringe SUBCUT SCH (07:58)
[2017-08-11] MEDS: K and/or MAG REPLACEMENT MC SCH (08:00)
[2017-08-11 11:30] VITALS: BP 162/78
[2017-08-12] MEDS ORDERED: pantoprazole 40mg Tablet.DR PO SCH (07:30)
== END 2017-08-11 18:46 | DRG 329 ==
LOC: ER 20:24 → ED HOLD 08-04 00:51 → CICU 2S 08-04 02:04 → SUR 3N 08-06 17:03
PROVIDERS: ADMIT Surgery; ATTEND Family Medicine
PROC: 0DT80ZZ Resection of Small Intestine, Open Approach (ICD-10-PCS; principal; 2017-08-04)
PROC: 0DNU0ZZ Release Omentum, Open Approach (ICD-10-PCS; 2017-08-04)
PROC: 03HY32Z Insertion of Monitoring Device into Upper Artery, Percutaneous Approach (ICD-10-PCS; 2017-08-04)
DX: K63.1 Perforation of intestine (nontraumatic) (principal); R65.11 Systemic inflammatory response syndrome (SIRS) of non-infectious origin with acute organ dysfunction; I21.4 Non-ST elevation (NSTEMI) myocardial infarction; R57.8 Other shock; J93.82 Other air leak; N17.9 Acute kidney failure, unspecified; K55.9 Vascular disorder of intestine, unspecified; K57.10 Diverticulosis of small intestine without perforation or abscess without bleeding; G70.00 Myasthenia gravis without (acute) exacerbation; I10 Essential (primary) hypertension; I49.3 Ventricular premature depolarization; J45.909 Unspecified asthma, uncomplicated; K66.0 Peritoneal adhesions (postprocedural) (postinfection); E87.6 Hypokalemia; N40.0 Benign prostatic hyperplasia without lower urinary tract symptoms; Z87.891 Personal history of nicotine dependence; Z79.899 Other long term (current) drug therapy; Z79.82 Long term (current) use of aspirin
CPT/HCPCS: 36415; 36600; 71045; 74176; 80048; 80053; 81001; 82150; 82550; 82803; 82810; 82948; 83036; 83605; 83615; 83690; 83735; 83880; 84100; 84132; 84134; 84443; 84478; 84484; 85018; 85025; 85610; 85730; 87070; 87077; 87186; 88307; 93306; 94002; 94003; 94640; 94760; 96365; 96375; 97110; 97116; 97162; 97530; 99291; A4649; A6213; A6257; A6258; A6449; A7000; C1758; C9113; J0360; J1644; J1650; J1720; J1815; J2001; J2250; J2270; J2405; J2543; J2704; J2710; J3010; J3480; J3490; J7030; J7120; P9047

== ENCOUNTER 2017-10-09 16:50 | Inpatient (IN) | payer MEDICARE ==
[2017-10-09] VITALS (8 sets, daily range): BP systolic 88–110; BP diastolic 33–80
[~2017-10-09] VITALS: Ht 182.9 cm; Wt 85.9 kg
[~2017-10-09 16:50] MED LIST changes: -ADV50250 IH; -ASPI-1265 PO; -CHOL50006 PO; -CYAN100087 PO; -FLO0.4C PO; -FOLI0.4T2 PO; -HCTZ25T PO; -METR500T PO; -MULT-785 PO; +PYRI60TA2 PO; -SYN0.075T PO; -VITA400T10 PO; -VITC500T PO
[2017-10-09] MEDS ORDERED: levoFLOXACIN-Levaquin 750MG/D5 150 ML IV ONE (16:55)
[2017-10-09 17:39] LABS: BASOPHILS % (AUTO) 0.1 % (0-1); EOSINOPHILS % (AUTO) 0 % (0-6); HEMATOCRIT 33.2 % (42.0-52.0); HEMOGLOBIN 11.1 g/dl (14.0-17.9); LYMPHOCYTES % (AUTO) 3.3 % (21-51); MEAN CORPUSCULAR HEMOGLOBIN 29.2 PG (27.0-31.0); MEAN CORPUSCULAR HGB CONC 33.5 % (33.0-36.5); MEAN CORPUSCULAR VOLUME 87.1 FL (78-98); MEAN PLATELET VOLUME 6.5 FL (7.4-10.4); MONOCYTES # (AUTO) 1.3 X10'3 (0-0.9); MONOCYTES % (AUTO) 4.5 % (2-12); NEUTROPHILS # (AUTO) 27.1 X10'3 (1.8-7.7); NEUTROPHILS % (AUTO) 92.1 % (42-75); PLATELET COUNT 373 X10'3 (140-440); RED BLOOD COUNT 3.82 X10'6 (4.70-6.10); RED CELL DISTRIBUTION WIDTH 15.4 % (11.5-14.5)
[2017-10-09 17:41] LABS: WHITE BLOOD COUNT 29.5 X10'3 (4.5-11.0)
[2017-10-09 17:52] LABS: INR 1.2 INR; PARTIAL THROMBOPLASTIN TIME 31 SECONDS (22-32); PROTHROMBIN TIME 12.6 SECONDS (9.0-12.0)
[2017-10-09 17:57] LABS: ALANINE AMINOTRANSFERASE 41 U/L (12-78); ALBUMIN 2.2 G/DL (3.4-5.0); ALBUMIN/GLOBULIN RATIO 0.4 (1.1-1.5); ALKALINE PHOSPHATASE 91 IU/L (46-116); ANION GAP 14 (8-16); ASPARTATE AMINO TRANSFERASE 16 U/L (10-37); BILIRUBIN,TOTAL 0.3 MG/DL (0.1-1.0); BLOOD UREA NITROGEN 25 MG/DL (7-18); BUN/CREATININE RATIO 17.6 (5.4-32.0); CALCIUM 8.9 MG/DL (8.5-10.1); CHLORIDE 102 MMOL/L (99-107); CREATININE 1.42 MG/DL (0.60-1.10); GLUCOSE 125 MG/DL (70-104); POTASSIUM 3.3 MMOL/L (3.5-5.1); SODIUM 135 MMOL/L (135-145); TOTAL CARBON DIOXIDE 19.5 MMOL/L (24-32); TOTAL PROTEIN 7.7 G/DL (6.4-8.2); eGFR 48 ML/MIN
[2017-10-09 18:01] LABS: CLARITY,URINE CLEAR (Clear); COLOR,URINE YELLOW (Yellow); GLUCOSE, URINE NEGATIVE (Neg); KETONES,URINE TRACE mg/dl (Neg); LEUKOCYTE ESTERASE ,URINE NEGATIVE (Neg); NITRITES, URINE NEGATIVE (Neg); OCCULT BLOOD,URINE NEGATIVE (Neg); PROTEIN,URINE 100 mg/dl (Neg); UA COLLECTION TYPE CLN CATCH MIDSTREAM; UROBILINOGEN,URINE 0.2 E.U/dL (0.2-1.0)
[2017-10-09 18:05] LABS: MAGNESIUM 0.7 MG/DL (1.5-2.4)
[2017-10-09 18:06] LABS: MUCUS STRANDS FEW /LPF (Neg); RENAL CELLS, URINE FEW /HPF; SQUAMOUS EPITHELIAL CELL,UR FEW /LPF (FEW); TRANSITIONAL EPI CELLS,URINE FEW /HPF
[2017-10-09 18:07] LABS: BACTERIA,URINE 1+ /HPF (Neg); RBC,URINE 0-2 /HPF (0-2); WBC,URINE 0-4 /HPF (0-4)
[2017-10-09] MEDS ORDERED: TAMS0.4C32 (18:27)
[2017-10-09] MEDS ORDERED: MULT-933 PO (18:27)
[2017-10-09] MEDS ORDERED: FOLI0.4T2 PO (18:27)
[2017-10-09] MEDS ORDERED: UBID50TA3 PO (18:27)
[2017-10-09] MEDS ORDERED: LEVO75TA7 (18:27)
[2017-10-09 18:33] LABS: PLATELET ESTIMATE NORMAL; TOTAL CELLS COUNTED 100
[2017-10-09 18:34] LABS: BURR CELLS 1+
[2017-10-09 18:35] LABS: TOXIC GRANULATION 1+
[2017-10-09] MEDS ORDERED: piperacillin/tazo 3.375gm/50ml 50 ML IV ONE (18:55)
[2017-10-09] MEDS ORDERED: ondansetron/PF 4mg/2ml inj IV ONE (19:00)
[2017-10-09] MEDS: morphine 4 MG/ML inj SYRINge IV PRN ×2 (19:10→20:12)
[2017-10-09] MEDS ORDERED: normal saline 1000ML IV soln IV ONE (19:40)
[2017-10-09] MEDS: magnesium/D5W IVPB 100 ML IV SCH (19:54)
[2017-10-09] MEDS: potassium 10mEq/100ml NS w/LIDOcaine (10mg/bag) IV SCH ×2 (19:54→21:28)
[2017-10-09] MEDS ORDERED: vancomycin/NS 1 GM ADD-VANTAGE 250 ML IV ONE (20:05)
[2017-10-09] MEDS ORDERED: acetaminophen 650mg rectal suppository RC PRN (20:35)
[2017-10-09] MEDS ORDERED: bisacodyl 10mg suppository rectal RC PRN (20:35)
[2017-10-09] MEDS ORDERED: metoclopramide 5 mg/ml inj IV PRN (20:35)
[2017-10-09] MEDS ORDERED: magnesium Cl slow-release 64mg tablet PO PRN (20:35)
[2017-10-09] MEDS ORDERED: potassium Cl 20 mEq SR tablet PO PRN (20:35)
[2017-10-09] MEDS ORDERED: magnesium hydroxide 30ml (MOM) UD suspension PO PRN (20:35)
[2017-10-09] MEDS ORDERED: ALBUTEROL IH PRN (20:35)
[2017-10-09] MEDS ORDERED: morphine 4 MG/ML inj SYRINge IV PRN ×2 (20:35)
[2017-10-09] MEDS ORDERED: diphenhydrAMINE 50 mg/ml inj IV PRN (20:35)
[2017-10-09] MEDS ORDERED: ondansetron/PF 4mg/2ml inj IV PRN (20:35)
[2017-10-09] MEDS ORDERED: diphenhydrAMINE 25mg capsule PO PRN (20:35)
[2017-10-09] MEDS ORDERED: magnesium 2GM in 50ml NS 50 ML IV PRN (20:35)
[2017-10-09] MEDS ORDERED: magnesium 4gm in 100ml NS 100 ML IV PRN (20:35)
[2017-10-09] MEDS ORDERED: acetaminophen 325mg tablet PO PRN ×2 (20:35)
[2017-10-09] MEDS ORDERED: HYDROmorphone inj. 0.5 MG/0.5 ML DISP.SYRIN IV PRN ×2 (20:35)
[2017-10-09] MEDS ORDERED: potassium Cl 40MEQ/NS 500ml 500 ML IV PRN ×2 (20:35)
[2017-10-09] MEDS ORDERED: verapamil 2.5 mg/ml inj IV ONE (20:50)
[2017-10-09] MEDS ORDERED: diltiazem-NS 100mg/100ml 100 ML IV ONE (20:50)
[2017-10-09] MEDS ORDERED: temazepam 15mg capsule PO PRN (21:00)
[2017-10-09 21:05] LABS: AMYLASE 31 U/L (25-115); LIPASE 152 U/L (73-393); PHOSPHORUS 2.9 MG/DL (2.3-4.5)
[2017-10-09] MEDS ORDERED: normal saline 1000ml 1,000 ML IVB ONE (21:24)
[2017-10-09] MEDS: normal saline 1000ml 1,000 ML IV SCH (21:28)
[2017-10-09] MEDS ORDERED: metoprolol tartrate 1mg/ml inj IV ONE (21:35)
[2017-10-09] MEDS ORDERED: diltiazem-NS 100mg/100ml 100 ML IV SCH (21:35)
[2017-10-09] MEDS ORDERED: HYDROmorphone 1 mg/ml syringe IV PRN (21:36)
[2017-10-09 22:08] LABS: TROPONIN I < 0.04 NG/ML (0.0-0.05)
[2017-10-09] MEDS ORDERED: LIDOcaine 1%/PF (10mg/ml) 5ml vial ONE (22:19)
[2017-10-10] VITALS (42 sets, daily range): BP systolic 79–140; BP diastolic 41–78
[2017-10-10] MEDS ORDERED: piperacillin/tazo 4.5gm/100ml 100 ML IV SCH
[2017-10-10] MEDS ORDERED: magnesium/D5W IVPB 100 ML IV ONE (00:20)
[2017-10-10] MEDS: magnesium/D5W IVPB 100 ML IV SCH ×3 (00:22→15:51)
[2017-10-10 00:51] LABS: ABG BASE EXCESS -12.5 mmol/L (-2.0-3.0); ABG HCO3 13.4 mmol/L (22.0-26.0); ABG OXYGEN SATURATION 90.7 % (95-98); ABG PH (T) 7.253 (7.350-7.450); ABG PO2 (T) 69.3 mmHg (83-108); FCOHb 0.3 % (0.5-1.5); FLOW 3 L/min; FMetHb 0.3 % (0.3-1.12); FO2Hb 90.2 % (94-100); PATIENT TEMPERATURE 36.9; RESPIRATORY RATE (OBSERVED) 26 b/min; TOTAL HEMOGLOBIN 12.1 G/dl (14.0-18.0)
[2017-10-10] MEDS ORDERED: normal saline 500ml IV soln 500 ML IV ONE ×4 (01:00→02:55)
[2017-10-10] MEDS ORDERED: diltiazem 5mg/ml 5ml inj. IV ONE (01:00)
[2017-10-10 01:32] LABS: CLARITY,URINE Clear (Clear); COLOR,URINE Yellow (Yellow); GLUCOSE, URINE Negative (Neg); KETONES,URINE Negative (Neg); LEUKOCYTE ESTERASE ,URINE Negative (Neg); NITRITES, URINE Negative (Neg); OCCULT BLOOD,URINE Moderate (Neg); PH,URINE 5.5 (4.8-8.0); PROTEIN,URINE 100 mg/dl (Neg); UROBILINOGEN,URINE 0.2 E.U/dL (0.2-1.0)
[2017-10-10 01:33] LABS: UA COLLECTION TYPE FOLEY CATH
[2017-10-10 01:33] LABS: BASOPHILS # (AUTO) 0.1 X10'3 (0-0.2); BASOPHILS % (AUTO) 0.4 % (0-1); EOSINOPHILS % (AUTO) 0.1 % (0-6); HEMATOCRIT 33.4 % (42.0-52.0); HEMOGLOBIN 11.1 g/dl (14.0-17.9); LYMPHOCYTES # (AUTO) 0.6 X10'3 (1.1-4.8); LYMPHOCYTES % (AUTO) 2.1 % (21-51); MEAN CORPUSCULAR HEMOGLOBIN 29.3 PG (27.0-31.0); MEAN CORPUSCULAR HGB CONC 33.3 % (33.0-36.5); MEAN PLATELET VOLUME 6.8 FL (7.4-10.4); MONOCYTES # (AUTO) 0.6 X10'3 (0-0.9); MONOCYTES % (AUTO) 2.2 % (2-12); NEUTROPHILS # (AUTO) 27.6 X10'3 (1.8-7.7); NEUTROPHILS % (AUTO) 95.2 % (42-75); PLATELET COUNT 330 X10'3 (140-440); RED BLOOD COUNT 3.79 X10'6 (4.70-6.10); RED CELL DISTRIBUTION WIDTH 14.5 % (11.5-14.5)
[2017-10-10 01:35] LABS: WHITE BLOOD COUNT 28.9 X10'3 (4.5-11.0)
[2017-10-10 01:52] LABS: ALBUMIN 1.8 G/DL (3.4-5.0); ANION GAP 16 (8-16); BLOOD UREA NITROGEN 24 MG/DL (7-18); CALCIUM 8.6 MG/DL (8.5-10.1); CHLORIDE 107 MMOL/L (99-107); CREATININE 1.84 MG/DL (0.60-1.10); GLUCOSE 119 MG/DL (70-104); LIPASE 677 U/L (73-393); POTASSIUM 3.4 MMOL/L (3.5-5.1); SODIUM 140 MMOL/L (135-145); TOTAL CARBON DIOXIDE 17.1 MMOL/L (24-32); eGFR 36 ML/MIN
[2017-10-10 01:53] LABS: RBC,URINE 50-100 /HPF (0-2); WBC,URINE NONE SEEN /HPF (0-4)
[2017-10-10 01:54] LABS: AMORPHOUS URATES 3+; BACTERIA,URINE NONE SEEN /HPF (Neg); COARSE GRANULAR CAST 0-3 /LPF (NEGATIVE); MUCUS STRANDS NONE SEEN /LPF (Neg); SQUAMOUS EPITHELIAL CELL,UR NONE SEEN /LPF (FEW)
[2017-10-10 02:50] LABS: PLATELET ESTIMATE NORMAL; TOTAL CELLS COUNTED 100
[2017-10-10] MEDS ORDERED: amiodarone 150mg/dext, iso-os 100 ML IV ONE (04:35)
[2017-10-10] MEDS: amiodarone/D5 360MG/200ML BAG 200 ML IV SCH ×4 (05:24→22:42)
[2017-10-10 05:55] LABS: BASOPHILS # (AUTO) 0.1 X10'3 (0-0.2); BASOPHILS % (AUTO) 0.2 % (0-1); EOSINOPHILS % (AUTO) 0.1 % (0-6); HEMATOCRIT 30.8 % (42.0-52.0); HEMOGLOBIN 10.2 g/dl (14.0-17.9); LYMPHOCYTES # (AUTO) 0.1 X10'3 (1.1-4.8); LYMPHOCYTES % (AUTO) 0.4 % (21-51); MEAN CORPUSCULAR HEMOGLOBIN 29.6 PG (27.0-31.0); MEAN CORPUSCULAR HGB CONC 33.2 % (33.0-36.5); MEAN CORPUSCULAR VOLUME 89.2 FL (78-98); MEAN PLATELET VOLUME 7.3 FL (7.4-10.4); MONOCYTES # (AUTO) 0.7 X10'3 (0-0.9); MONOCYTES % (AUTO) 2.3 % (2-12); NEUTROPHILS # (AUTO) 27.9 X10'3 (1.8-7.7); PLATELET COUNT 313 X10'3 (140-440); RED BLOOD COUNT 3.45 X10'6 (4.70-6.10); RED CELL DISTRIBUTION WIDTH 14.5 % (11.5-14.5)
[2017-10-10 05:58] LABS: ALANINE AMINOTRANSFERASE 25 U/L (12-78); ALBUMIN 1.6 G/DL (3.4-5.0); ALBUMIN/GLOBULIN RATIO 0.4 (1.1-1.5); ALKALINE PHOSPHATASE 73 IU/L (46-116); ANION GAP 14 (8-16); ASPARTATE AMINO TRANSFERASE 18 U/L (10-37); BILIRUBIN,TOTAL 0.6 MG/DL (0.1-1.0); BLOOD UREA NITROGEN 26 MG/DL (7-18); BUN/CREATININE RATIO 12.7 (5.4-32.0); CALCIUM 7.8 MG/DL (8.5-10.1); CHLORIDE 107 MMOL/L (99-107); CREATININE 2.04 MG/DL (0.60-1.10); GLUCOSE 120 MG/DL (70-104); POTASSIUM 3.3 MMOL/L (3.5-5.1); SODIUM 139 MMOL/L (135-145); TOTAL CARBON DIOXIDE 17.8 MMOL/L (24-32); TOTAL PROTEIN 5.9 G/DL (6.4-8.2); eGFR 32 ML/MIN
[2017-10-10 05:59] LABS: WHITE BLOOD COUNT 28.8 X10'3 (4.5-11.0)
[2017-10-10] MEDS ORDERED: albumin (human) 25% 100 ML IV solution IV ONE (06:00)
[2017-10-10 06:01] LABS: MAGNESIUM 0.8 MG/DL (1.5-2.4)
[2017-10-10] MEDS: normal saline 1000ml 1,000 ML IV ONE ×2 (06:42→08:10)
[2017-10-10] MEDS: HYDROcodone/acetaminophen 10/325mg tab PO PRN ×4 (06:55→23:34)
[2017-10-10] MEDS: potassium Cl 20 mEq SR tablet PO PRN ×2 (06:56→12:23)
[2017-10-10] MEDS: normal saline 1000ml 1,000 ML IV SCH ×3 (07:06→16:34)
[2017-10-10 07:15] LABS: BURR CELLS FEW; PLATELET ESTIMATE NORMAL; TOTAL CELLS COUNTED 100
[2017-10-10] MEDS: docusate sod 100mg capsule PO SCH ×2 (08:00→20:00)
[2017-10-10] MEDS ORDERED: lisinopril 20mg tablet PO SCH (08:00)
[2017-10-10] MEDS ORDERED: pantoprazole 40 MG vial IV SCH (08:00)
[2017-10-10] MEDS: K and/or MAG REPLACEMENT MC SCH (08:00)
[2017-10-10] MEDS ORDERED: non-formulary drug (Lisinopril* 40 MG) PO SCH (08:00)
[2017-10-10] MEDS ORDERED: vancomycin/NS 1 GM ADD-VANTAGE 250 ML IV SCH (08:00)
[2017-10-10] MEDS: piperacillin-tazo 2.25gm/50ml 50 ML IV SCH ×3 (08:11→20:25)
[2017-10-10] MEDS: famotidine/PF 10 mg/ml inj IV SCH ×2 (08:17→20:25)
[2017-10-10] MEDS: pyridostigmine br 60mg tablet PO SCH ×3 (09:29→23:34)
[2017-10-10] MEDS: HYDROmorphone 1 mg/ml syringe IV PRN ×2 (09:30→13:39)
[2017-10-10 12:06] LABS: MAGNESIUM 1.8 MG/DL (1.5-2.4); POTASSIUM 3.4 MMOL/L (3.5-5.1)
[2017-10-10] MEDS ORDERED: normal saline 500ml IV soln 1,000 ML IV ONE ×2 (12:20→17:55)
[2017-10-10] MEDS: sucralfate 1gm/10ml UD suspension PO SCH ×3 (12:26→20:25)
[2017-10-10] MEDS: heparin, porcine 5000 units/ml vial SQ SCH ×2 (12:27→20:26)
[2017-10-10] MEDS: micafungin inj 100 MG in normal saline 100ml IV soln 100 ML IV SCH (15:49)
[2017-10-10] MEDS ORDERED: vancomycin inj 1,250 MG in normal saline 250ml IV soln 250 ML IV SCH (21:00)
[2017-10-11] VITALS (56 sets, daily range): BP systolic 82–141; BP diastolic 42–73
[2017-10-11] MEDS: piperacillin-tazo 2.25gm/50ml 50 ML IV SCH ×4 (02:14→20:32)
[2017-10-11] MEDS: albuterol 2.5 MG/3 ML nebule NEB PRN ×2 (04:23→15:17)
[2017-10-11 06:21] LABS: HEMATOCRIT 35.3 % (42.0-52.0); HEMOGLOBIN 11.6 g/dl (14.0-17.9); MEAN CORPUSCULAR HEMOGLOBIN 29.1 PG (27.0-31.0); MEAN CORPUSCULAR HGB CONC 32.9 % (33.0-36.5); MEAN CORPUSCULAR VOLUME 88.4 FL (78-98); MEAN PLATELET VOLUME 6.8 FL (7.4-10.4); PLATELET COUNT 327 X10'3 (140-440); RED BLOOD COUNT 3.99 X10'6 (4.70-6.10); RED CELL DISTRIBUTION WIDTH 15.9 % (11.5-14.5)
[2017-10-11 06:30] LABS: WHITE BLOOD COUNT 27.5 X10'3 (4.5-11.0)
[2017-10-11 06:58] LABS: ANISOCYTOSIS 1+; PLATELET ESTIMATE NORMAL; TOTAL CELLS COUNTED 100
[2017-10-11 06:59] LABS: ALANINE AMINOTRANSFERASE 23 U/L (12-78); ALBUMIN/GLOBULIN RATIO 0.5 (1.1-1.5); ALKALINE PHOSPHATASE 72 IU/L (46-116); ANION GAP 19 (8-16); ASPARTATE AMINO TRANSFERASE 24 U/L (10-37); BILIRUBIN,TOTAL 0.2 MG/DL (0.1-1.0); BLOOD UREA NITROGEN 34 MG/DL (7-18); BUN/CREATININE RATIO 11.1 (5.4-32.0); CALCIUM 8.5 MG/DL (8.5-10.1); CHLORIDE 108 MMOL/L (99-107); CREATININE 3.06 MG/DL (0.60-1.10); GLUCOSE 147 MG/DL (70-104); MAGNESIUM 2.3 MG/DL (1.5-2.4); POLYCHROMASIA FEW; POTASSIUM 3.9 MMOL/L (3.5-5.1); SODIUM 139 MMOL/L (135-145); TOTAL PROTEIN 6.4 G/DL (6.4-8.2); eGFR 20 ML/MIN
[2017-10-11 07:02] LABS: TOTAL CARBON DIOXIDE 11.7 MMOL/L (24-32)
[2017-10-11] MEDS: micafungin inj 100 MG in normal saline 100ml IV soln 100 ML IV SCH (07:45)
[2017-10-11] MEDS: sucralfate 1gm/10ml UD suspension PO SCH (07:45)
[2017-10-11] MEDS: K and/or MAG REPLACEMENT MC SCH (08:00)
[2017-10-11] MEDS: docusate sod 100mg capsule PO SCH ×2 (08:00→20:00)
[2017-10-11] MEDS: pyridostigmine br 60mg tablet PO SCH ×2 (08:36→17:11)
[2017-10-11] MEDS: HYDROcodone/acetaminophen 10/325mg tab PO PRN ×2 (08:37→18:58)
[2017-10-11] MEDS: heparin, porcine 5000 units/ml vial SQ SCH ×2 (08:38→20:32)
[2017-10-11] MEDS: famotidine/PF 10 mg/ml inj IV SCH ×2 (08:38→20:30)
[2017-10-11] MEDS: NORepinephrine 8mg/ 250ml NS 250 ML IV SCH (09:20)
[2017-10-11] MEDS ORDERED: normal saline 1000ml 1,000 ML IV ONE (10:30)
[2017-10-11] MEDS: sodium bicarbonate (8.4%) inj. 150 MEQ in dextrose 5%-water 1,000 ML IV SCH ×2 (10:46→17:11)
[2017-10-11] MEDS: chloestyramine/aspartame 4gm packet PO SCH ×2 (12:52→17:11)
[2017-10-11 13:54] LABS: CLARITY,URINE CLOUDY (Clear); COLOR,URINE YELLOW (Yellow); GLUCOSE, URINE NEGATIVE (Neg); KETONES,URINE NEGATIVE (Neg); LEUKOCYTE ESTERASE ,URINE SMALL (Neg); NITRITES, URINE NEGATIVE (Neg); OCCULT BLOOD,URINE LARGE (Neg); PH,URINE 5.5 (4.8-8.0); PROTEIN,URINE 100 mg/dl (Neg); UROBILINOGEN,URINE 0.2 E.U/dL (0.2-1.0)
[2017-10-11 13:55] LABS: UA COLLECTION TYPE FOLEY CATH
[2017-10-11 14:03] LABS: BACTERIA,URINE 1+ /HPF (Neg); RBC,URINE TNTC /HPF (0-2); SQUAMOUS EPITHELIAL CELL,UR FEW /LPF (FEW)
[2017-10-11 14:04] LABS: WBC,URINE 50-100 /HPF (0-4)
[2017-10-11 14:30] LABS: UA EOSINOPHILS NO EOS /HPF
[2017-10-11 14:32] LABS: MAGNESIUM 1.9 MG/DL (1.5-2.4)
[2017-10-11] MEDS ORDERED: potassium Cl 40MEQ/250ML bag 250 ML IV PRN (14:40)
[2017-10-11] MEDS: potassium Cl 40MEQ/250ML bag 250 ML IV PRN (15:07)
[2017-10-11] MEDS: lactobacillus rhamnosus 10,000 MMU CELLS/CAPSULE PO SCH (20:31)
[2017-10-12] VITALS (23 sets, daily range): BP systolic 80–155; BP diastolic 47–75
[2017-10-12] MEDS: pyridostigmine br 60mg tablet PO SCH ×4 (01:01→23:36)
[2017-10-12] MEDS: sodium bicarbonate (8.4%) inj. 150 MEQ in dextrose 5%-water 1,000 ML IV SCH ×3 (02:53→09:57)
[2017-10-12] MEDS: HYDROcodone/acetaminophen 10/325mg tab PO PRN ×2 (02:54→12:34)
[2017-10-12] MEDS: piperacillin-tazo 2.25gm/50ml 50 ML IV SCH ×4 (02:55→20:15)
[2017-10-12 03:52] LABS: BASOPHILS % (AUTO) 0 % (0-1); EOSINOPHILS # (AUTO) 0.8 X10'3 (0-0.9); HEMATOCRIT 30.3 % (42.0-52.0); HEMOGLOBIN 10.1 g/dl (14.0-17.9); LYMPHOCYTES # (AUTO) 0.3 X10'3 (1.1-4.8); LYMPHOCYTES % (AUTO) 1.4 % (21-51); MEAN CORPUSCULAR HEMOGLOBIN 29.1 PG (27.0-31.0); MEAN CORPUSCULAR HGB CONC 33.4 % (33.0-36.5); MEAN PLATELET VOLUME 6.8 FL (7.4-10.4); MONOCYTES # (AUTO) 0.6 X10'3 (0-0.9); NEUTROPHILS # (AUTO) 18.4 X10'3 (1.8-7.7); NEUTROPHILS % (AUTO) 91.6 % (42-75); PLATELET COUNT 304 X10'3 (140-440); RED BLOOD COUNT 3.48 X10'6 (4.70-6.10); RED CELL DISTRIBUTION WIDTH 15.9 % (11.5-14.5); WHITE BLOOD COUNT 20.1 X10'3 (4.5-11.0)
[2017-10-12 04:08] LABS: ALANINE AMINOTRANSFERASE 21 U/L (12-78); ALBUMIN 1.6 G/DL (3.4-5.0); ALBUMIN/GLOBULIN RATIO 0.4 (1.1-1.5); ALKALINE PHOSPHATASE 68 IU/L (46-116); ANION GAP 13 (8-16); ASPARTATE AMINO TRANSFERASE 18 U/L (10-37); BILIRUBIN,TOTAL 0.3 MG/DL (0.1-1.0); BLOOD UREA NITROGEN 40 MG/DL (7-18); BUN/CREATININE RATIO 10.6 (5.4-32.0); CALCIUM 8.4 MG/DL (8.5-10.1); CHLORIDE 107 MMOL/L (99-107); CREATININE 3.78 MG/DL (0.60-1.10); GLUCOSE 128 MG/DL (70-104); MAGNESIUM 1.9 MG/DL (1.5-2.4); POTASSIUM 3.7 MMOL/L (3.5-5.1); SODIUM 137 MMOL/L (135-145); TOTAL CARBON DIOXIDE 17.2 MMOL/L (24-32); TOTAL PROTEIN 5.3 G/DL (6.4-8.2); eGFR 15 ML/MIN
[2017-10-12] MEDS: NORepinephrine 8mg/ 250ml NS 250 ML IV SCH (04:22)
[2017-10-12] MEDS: heparin, porcine 5000 units/ml vial SQ SCH ×2 (07:31→20:15)
[2017-10-12] MEDS: famotidine/PF 10 mg/ml inj IV SCH ×2 (07:31→20:15)
[2017-10-12] MEDS: lactobacillus rhamnosus 10,000 MMU CELLS/CAPSULE PO SCH ×2 (07:39→20:15)
[2017-10-12 07:51] LABS: TOTAL CELLS COUNTED 100
[2017-10-12 07:52] LABS: ANISOCYTOSIS 1+; BURR CELLS 2+; PLATELET ESTIMATE NORMAL
[2017-10-12] MEDS: K and/or MAG REPLACEMENT MC SCH (08:00)
[2017-10-12] MEDS: docusate sod 100mg capsule PO SCH ×2 (08:00→20:00)
[2017-10-12] MEDS: micafungin inj 100 MG in normal saline 100ml IV soln 100 ML IV SCH (08:24)
[2017-10-12] MEDS ORDERED: ipratropium/albuterol 3ml nebule NEB PRN (11:05)
[2017-10-12] MEDS: chloestyramine/aspartame 4gm packet PO SCH ×2 (11:10→16:15)
[2017-10-12] MEDS: ipratropium/albuterol 3ml nebule NEB SCH ×2 (16:03→20:45)
[2017-10-12] MEDS ORDERED: VANCOMYCIN LEVEL IV ONE (20:30)
[2017-10-13] VITALS (18 sets, daily range): BP systolic 101–137; BP diastolic 48–73
[2017-10-13] MEDS: piperacillin-tazo 2.25gm/50ml 50 ML IV SCH ×4 (01:45→20:27)
[2017-10-13] MEDS: HYDROcodone/acetaminophen 10/325mg tab PO PRN ×2 (01:46→15:00)
[2017-10-13] MEDS: ipratropium/albuterol 3ml nebule NEB SCH ×4 (02:52→20:40)
[2017-10-13 03:56] LABS: BASOPHILS % (AUTO) 0.3 % (0-1); EOSINOPHILS # (AUTO) 0.7 X10'3 (0-0.9); EOSINOPHILS % (AUTO) 5.1 % (0-6); HEMATOCRIT 31.9 % (42.0-52.0); HEMOGLOBIN 10.6 g/dl (14.0-17.9); LYMPHOCYTES # (AUTO) 0.4 X10'3 (1.1-4.8); LYMPHOCYTES % (AUTO) 3.1 % (21-51); MEAN CORPUSCULAR HEMOGLOBIN 28.8 PG (27.0-31.0); MEAN CORPUSCULAR HGB CONC 33.2 % (33.0-36.5); MEAN PLATELET VOLUME 6.8 FL (7.4-10.4); MONOCYTES # (AUTO) 0.4 X10'3 (0-0.9); MONOCYTES % (AUTO) 2.8 % (2-12); NEUTROPHILS # (AUTO) 12.4 X10'3 (1.8-7.7); NEUTROPHILS % (AUTO) 88.7 % (42-75); PLATELET COUNT 246 X10'3 (140-440); RED BLOOD COUNT 3.66 X10'6 (4.70-6.10); RED CELL DISTRIBUTION WIDTH 16.5 % (11.5-14.5)
[2017-10-13 04:11] LABS: ALANINE AMINOTRANSFERASE 17 U/L (12-78); ALBUMIN 1.5 G/DL (3.4-5.0); ALBUMIN/GLOBULIN RATIO 0.4 (1.1-1.5); ALKALINE PHOSPHATASE 109 IU/L (46-116); ANION GAP 12 (8-16); ASPARTATE AMINO TRANSFERASE 14 U/L (10-37); BILIRUBIN,TOTAL 0.4 MG/DL (0.1-1.0); BLOOD UREA NITROGEN 41 MG/DL (7-18); BUN/CREATININE RATIO 9.8 (5.4-32.0); CALCIUM 8.6 MG/DL (8.5-10.1); CHLORIDE 104 MMOL/L (99-107); CREATININE 4.18 MG/DL (0.60-1.10); GLUCOSE 115 MG/DL (70-104); MAGNESIUM 1.8 MG/DL (1.5-2.4); POTASSIUM 3.3 MMOL/L (3.5-5.1); SODIUM 137 MMOL/L (135-145); TOTAL CARBON DIOXIDE 21.1 MMOL/L (24-32); TOTAL PROTEIN 5.3 G/DL (6.4-8.2); eGFR 14 ML/MIN
[2017-10-13] MEDS ORDERED: potassium Cl 20 mEq SR tablet PO PRN (05:25)
[2017-10-13] MEDS: potassium Cl 20 mEq SR tablet PO PRN ×3 (05:46→18:01)
[2017-10-13] MEDS: pyridostigmine br 60mg tablet PO SCH ×2 (07:33→15:00)
[2017-10-13] MEDS: lactobacillus rhamnosus 10,000 MMU CELLS/CAPSULE PO SCH ×2 (07:33→20:27)
[2017-10-13] MEDS: famotidine/PF 10 mg/ml inj IV SCH ×2 (07:33→20:27)
[2017-10-13] MEDS: sodium bicarbonate (8.4%) inj. 150 MEQ in dextrose 5%-water 1,000 ML IV SCH (07:34)
[2017-10-13] MEDS: micafungin inj 100 MG in normal saline 100ml IV soln 100 ML IV SCH (07:35)
[2017-10-13] MEDS: K and/or MAG REPLACEMENT MC SCH (07:35)
[2017-10-13] MEDS: docusate sod 100mg capsule PO SCH ×2 (07:36→20:00)
[2017-10-13] MEDS: heparin, porcine 5000 units/ml vial SQ SCH ×2 (07:37→20:28)
[2017-10-13] MEDS: chloestyramine/aspartame 4gm packet PO SCH ×2 (12:31→15:00)
[2017-10-13] MEDS ORDERED: VANCOMYCIN LEVEL IV ONE (20:30)
[2017-10-14] VITALS (17 sets, daily range): BP systolic 117–165; BP diastolic 57–92
[2017-10-14] MEDS: pyridostigmine br 60mg tablet PO SCH ×3 (01:41→16:00)
[2017-10-14] MEDS: piperacillin-tazo 2.25gm/50ml 50 ML IV SCH ×4 (01:42→19:22)
[2017-10-14] MEDS: ipratropium/albuterol 3ml nebule NEB SCH ×4 (02:55→20:45)
[2017-10-14 04:38] LABS: BASOPHILS % (AUTO) 0 % (0-1); EOSINOPHILS # (AUTO) 0.6 X10'3 (0-0.9); EOSINOPHILS % (AUTO) 7.2 % (0-6); HEMATOCRIT 29.3 % (42.0-52.0); HEMOGLOBIN 9.7 g/dl (14.0-17.9); LYMPHOCYTES # (AUTO) 0.4 X10'3 (1.1-4.8); LYMPHOCYTES % (AUTO) 4.4 % (21-51); MEAN CORPUSCULAR HEMOGLOBIN 28.7 PG (27.0-31.0); MEAN CORPUSCULAR HGB CONC 33.2 % (33.0-36.5); MEAN CORPUSCULAR VOLUME 86.3 FL (78-98); MEAN PLATELET VOLUME 6.5 FL (7.4-10.4); MONOCYTES # (AUTO) 0.4 X10'3 (0-0.9); MONOCYTES % (AUTO) 4.6 % (2-12); NEUTROPHILS # (AUTO) 7.5 X10'3 (1.8-7.7); NEUTROPHILS % (AUTO) 83.8 % (42-75); PLATELET COUNT 212 X10'3 (140-440); RED CELL DISTRIBUTION WIDTH 16.1 % (11.5-14.5); WHITE BLOOD COUNT 8.9 X10'3 (4.5-11.0)
[2017-10-14 05:00] LABS: ALANINE AMINOTRANSFERASE 17 U/L (12-78); ALBUMIN 1.3 G/DL (3.4-5.0); ALBUMIN/GLOBULIN RATIO 0.4 (1.1-1.5); ALKALINE PHOSPHATASE 145 IU/L (46-116); ANION GAP 12 (8-16); ASPARTATE AMINO TRANSFERASE 15 U/L (10-37); BILIRUBIN,TOTAL 0.5 MG/DL (0.1-1.0); BLOOD UREA NITROGEN 40 MG/DL (7-18); BUN/CREATININE RATIO 9.4 (5.4-32.0); CALCIUM 8.2 MG/DL (8.5-10.1); CHLORIDE 104 MMOL/L (99-107); CREATININE 4.25 MG/DL (0.60-1.10); GLUCOSE 111 MG/DL (70-104); MAGNESIUM 1.7 MG/DL (1.5-2.4); POTASSIUM 3.1 MMOL/L (3.5-5.1); SODIUM 138 MMOL/L (135-145); TOTAL CARBON DIOXIDE 22.5 MMOL/L (24-32); eGFR 14 ML/MIN
[2017-10-14] MEDS: fluconazole-Diflucan 200mg/NS 100 ML IV SCH (07:13)
[2017-10-14] MEDS: sodium bicarbonate (8.4%) inj. 150 MEQ in dextrose 5%-water 1,000 ML IV SCH (07:13)
[2017-10-14] MEDS: famotidine/PF 10 mg/ml inj IV SCH ×2 (07:13→19:21)
[2017-10-14] MEDS: lactobacillus rhamnosus 10,000 MMU CELLS/CAPSULE PO SCH ×2 (07:15→19:21)
[2017-10-14] MEDS: heparin, porcine 5000 units/ml vial SQ SCH ×2 (07:16→19:22)
[2017-10-14] MEDS: docusate sod 100mg capsule PO SCH ×2 (07:16→19:01)
[2017-10-14] MEDS: K and/or MAG REPLACEMENT MC SCH (07:21)
[2017-10-14] MEDS: predniSONE 20 mg tablet PO SCH (09:46)
[2017-10-14] MEDS: potassium Cl 40MEQ/250ML bag 250 ML IV PRN (10:49)
[2017-10-14] MEDS: chloestyramine/aspartame 4gm packet PO SCH ×2 (10:54→17:03)
[2017-10-15] MEDS: piperacillin-tazo 2.25gm/50ml 50 ML IV SCH ×4 (01:35→20:11)
[2017-10-15] MEDS: ipratropium/albuterol 3ml nebule NEB SCH ×4 (03:09→21:26)
[2017-10-15 05:59] LABS: MAGNESIUM 1.7 MG/DL (1.5-2.4); POTASSIUM 3.8 MMOL/L (3.5-5.1)
[2017-10-15 06:00] VITALS: BP 150/69
[2017-10-15] MEDS: docusate sod 100mg capsule PO SCH ×2 (08:00→20:00)
[2017-10-15] MEDS: K and/or MAG REPLACEMENT MC SCH (08:00)
[2017-10-15] MEDS: famotidine/PF 10 mg/ml inj IV SCH ×2 (09:29→20:10)
[2017-10-15] MEDS: heparin, porcine 5000 units/ml vial SQ SCH ×2 (09:36→20:10)
[2017-10-15] MEDS: pyridostigmine br 60mg tablet PO SCH ×4 (09:37→23:14)
[2017-10-15] MEDS: predniSONE 20 mg tablet PO SCH (09:37)
[2017-10-15] MEDS: fluconazole-Diflucan 200mg/NS 100 ML IV SCH (09:40)
[2017-10-15] MEDS: lactobacillus rhamnosus 10,000 MMU CELLS/CAPSULE PO SCH ×2 (09:41→20:10)
[2017-10-15 10:00] VITALS: BP 160/91
[2017-10-15] MEDS: chloestyramine/aspartame 4gm packet PO SCH ×2 (12:13→16:00)
[2017-10-15] MEDS: HYDROcodone/acetaminophen 5mg/325mg tablet PO PRN (12:33)
[2017-10-15 15:13] LABS: ALBUMIN 1.7 G/DL (3.4-5.0); ANION GAP 14 (8-16); BLOOD UREA NITROGEN 39 MG/DL (7-18); BUN/CREATININE RATIO 9.4 (5.4-32.0); CALCIUM 8.6 MG/DL (8.5-10.1); CHLORIDE 107 MMOL/L (99-107); CREATININE 4.14 MG/DL (0.60-1.10); GLUCOSE 123 MG/DL (70-104); POTASSIUM 3.8 MMOL/L (3.5-5.1); SODIUM 139 MMOL/L (135-145); TOTAL CARBON DIOXIDE 18.5 MMOL/L (24-32); eGFR 14 ML/MIN
[2017-10-15] MEDS ORDERED: furosemide 40mg/4ml inj IV ONE (15:50)
[2017-10-15 18:00] VITALS: BP 154/75
[2017-10-15 22:00] VITALS: BP 127/57
[2017-10-16] MEDS: piperacillin-tazo 2.25gm/50ml 50 ML IV SCH ×4 (01:12→21:03)
[2017-10-16] MEDS: ipratropium/albuterol 3ml nebule NEB SCH ×4 (02:52→20:42)
[2017-10-16 05:00] VITALS: BP 148/69
[2017-10-16 05:42] LABS: BASOPHILS % (AUTO) 0.3 % (0-1); EOSINOPHILS # (AUTO) 0.1 X10'3 (0-0.9); EOSINOPHILS % (AUTO) 1.4 % (0-6); HEMATOCRIT 28.4 % (42.0-52.0); HEMOGLOBIN 9.4 g/dl (14.0-17.9); LYMPHOCYTES % (AUTO) 10.6 % (21-51); MEAN CORPUSCULAR HEMOGLOBIN 28.3 PG (27.0-31.0); MEAN CORPUSCULAR HGB CONC 33.2 % (33.0-36.5); MEAN CORPUSCULAR VOLUME 85.2 FL (78-98); MEAN PLATELET VOLUME 7.4 FL (7.4-10.4); MONOCYTES # (AUTO) 0.7 X10'3 (0-0.9); MONOCYTES % (AUTO) 7.2 % (2-12); NEUTROPHILS # (AUTO) 7.5 X10'3 (1.8-7.7); NEUTROPHILS % (AUTO) 80.5 % (42-75); PLATELET COUNT 185 X10'3 (140-440); RED BLOOD COUNT 3.33 X10'6 (4.70-6.10); RED CELL DISTRIBUTION WIDTH 16.9 % (11.5-14.5); WHITE BLOOD COUNT 9.3 X10'3 (4.5-11.0)
[2017-10-16 06:26] LABS: ALANINE AMINOTRANSFERASE 19 U/L (12-78); ALBUMIN 1.8 G/DL (3.4-5.0); ALBUMIN/GLOBULIN RATIO 0.5 (1.1-1.5); ALKALINE PHOSPHATASE 118 IU/L (46-116); ANION GAP 17 (8-16); ASPARTATE AMINO TRANSFERASE 13 U/L (10-37); BILIRUBIN,TOTAL 0.5 MG/DL (0.1-1.0); BLOOD UREA NITROGEN 39 MG/DL (7-18); BUN/CREATININE RATIO 9.5 (5.4-32.0); CALCIUM 8.7 MG/DL (8.5-10.1); CHLORIDE 106 MMOL/L (99-107); CREATININE 4.12 MG/DL (0.60-1.10); GLUCOSE 105 MG/DL (70-104); MAGNESIUM 1.5 MG/DL (1.5-2.4); POTASSIUM 3.4 MMOL/L (3.5-5.1); SODIUM 143 MMOL/L (135-145); TOTAL CARBON DIOXIDE 19.9 MMOL/L (24-32); TOTAL PROTEIN 5.6 G/DL (6.4-8.2); eGFR 14 ML/MIN
[2017-10-16] MEDS ORDERED: potassium Cl 40MEQ/NS 500ml 500 ML IV PRN ×4 (07:20→18:35)
[2017-10-16] MEDS: docusate sod 100mg capsule PO SCH ×2 (08:00→20:00)
[2017-10-16] MEDS: K and/or MAG REPLACEMENT MC SCH (08:00)
[2017-10-16] MEDS: heparin, porcine 5000 units/ml vial SQ SCH ×2 (08:00→21:03)
[2017-10-16 10:00] VITALS: BP 139/65
[2017-10-16] MEDS: fluconazole-Diflucan 200mg/NS 100 ML IV SCH (10:10)
[2017-10-16] MEDS: predniSONE 20 mg tablet PO SCH (10:11)
[2017-10-16] MEDS: lactobacillus rhamnosus 10,000 MMU CELLS/CAPSULE PO SCH ×2 (10:11→21:02)
[2017-10-16] MEDS: famotidine/PF 10 mg/ml inj IV SCH (10:11)
[2017-10-16] MEDS: pyridostigmine br 60mg tablet PO SCH ×2 (10:11→16:41)
[2017-10-16] MEDS: chloestyramine/aspartame 4gm packet PO SCH ×2 (11:00→16:41)
[2017-10-16] MEDS ORDERED: LIDOcaine 0.5% (5mg/ml) 50ml vial ONE (11:43)
[2017-10-16] MEDS ORDERED: fentaNYL/PF 50MCG/1 ML 2ML syringe IV PRN (11:45)
[2017-10-16] MEDS ORDERED: fentaNYL/PF 50MCG/1 ML 2ML syringe ONE (12:03)
[2017-10-16 12:08] VITALS: BP 152/78
[2017-10-16 18:00] VITALS: BP 145/65
[2017-10-16] MEDS ORDERED: potassium Cl 20 mEq SR tablet PO PRN (18:35)
[2017-10-16 22:00] VITALS: BP 153/50
[2017-10-17] MEDS: pyridostigmine br 60mg tablet PO SCH ×3 (00:08→16:19)
[2017-10-17] MEDS: piperacillin-tazo 2.25gm/50ml 50 ML IV SCH ×4 (02:42→19:39)
[2017-10-17] MEDS: ipratropium/albuterol 3ml nebule NEB SCH ×4 (03:20→20:05)
[2017-10-17 05:18] LABS: BASOPHILS % (AUTO) 0.5 % (0-1); EOSINOPHILS % (AUTO) 0.2 % (0-6); HEMATOCRIT 27.4 % (42.0-52.0); HEMOGLOBIN 9.1 g/dl (14.0-17.9); LYMPHOCYTES # (AUTO) 1.5 X10'3 (1.1-4.8); LYMPHOCYTES % (AUTO) 14.5 % (21-51); MEAN CORPUSCULAR HEMOGLOBIN 28.3 PG (27.0-31.0); MEAN CORPUSCULAR HGB CONC 33.2 % (33.0-36.5); MEAN CORPUSCULAR VOLUME 85.3 FL (78-98); MEAN PLATELET VOLUME 7.2 FL (7.4-10.4); MONOCYTES # (AUTO) 1.1 X10'3 (0-0.9); MONOCYTES % (AUTO) 10.4 % (2-12); NEUTROPHILS # (AUTO) 7.9 X10'3 (1.8-7.7); NEUTROPHILS % (AUTO) 74.4 % (42-75); PLATELET COUNT 179 X10'3 (140-440); RED BLOOD COUNT 3.21 X10'6 (4.70-6.10); RED CELL DISTRIBUTION WIDTH 16.4 % (11.5-14.5); WHITE BLOOD COUNT 10.6 X10'3 (4.5-11.0)
[2017-10-17 06:00] VITALS: BP 120/69
[2017-10-17 06:06] LABS: ALANINE AMINOTRANSFERASE 14 U/L (12-78); ALBUMIN 1.9 G/DL (3.4-5.0); ALBUMIN/GLOBULIN RATIO 0.5 (1.1-1.5); ALKALINE PHOSPHATASE 95 IU/L (46-116); ANION GAP 13 (8-16); ASPARTATE AMINO TRANSFERASE 14 U/L (10-37); BILIRUBIN,TOTAL 0.3 MG/DL (0.1-1.0); BLOOD UREA NITROGEN 39 MG/DL (7-18); BUN/CREATININE RATIO 10.4 (5.4-32.0); CALCIUM 8.6 MG/DL (8.5-10.1); CHLORIDE 110 MMOL/L (99-107); CREATININE 3.74 MG/DL (0.60-1.10); GLUCOSE 94 MG/DL (70-104); MAGNESIUM 1.3 MG/DL (1.5-2.4); POTASSIUM 3.6 MMOL/L (3.5-5.1); SODIUM 142 MMOL/L (135-145); TOTAL CARBON DIOXIDE 19.2 MMOL/L (24-32); TOTAL PROTEIN 5.7 G/DL (6.4-8.2); eGFR 16 ML/MIN
[2017-10-17 07:35] LABS: ANISOCYTOSIS 1+; MICROCYTOSIS 1+; PLATELET ESTIMATE NORMAL; POLYCHROMASIA FEW; TOTAL CELLS COUNTED 100
[2017-10-17] MEDS: lactobacillus rhamnosus 10,000 MMU CELLS/CAPSULE PO SCH ×2 (07:52→19:38)
[2017-10-17] MEDS: famotidine 20mg tablet PO SCH (07:52)
[2017-10-17] MEDS: predniSONE 20 mg tablet PO SCH (07:52)
[2017-10-17] MEDS: fluconazole-Diflucan 200mg/NS 100 ML IV SCH (07:53)
[2017-10-17] MEDS: heparin, porcine 5000 units/ml vial SQ SCH ×2 (07:55→19:39)
[2017-10-17] MEDS: K and/or MAG REPLACEMENT MC SCH (08:00)
[2017-10-17] MEDS: docusate sod 100mg capsule PO SCH ×2 (08:00→19:38)
[2017-10-17] MEDS ORDERED: magnesium 4gm in 100ml NS 100 ML IV PRN (09:05)
[2017-10-17] MEDS ORDERED: magnesium/D5W IVPB 100 ML IV PRN (09:05)
[2017-10-17] MEDS ORDERED: enoxaparin 100mg/ml syringe SUBCUT ONE (09:35)
[2017-10-17 10:00] VITALS: BP 153/70
[2017-10-17] MEDS: magnesium Cl slow-release 64mg tablet PO PRN ×2 (10:08→19:38)
[2017-10-17] MEDS: chloestyramine/aspartame 4gm packet PO SCH ×2 (11:37→16:21)
[2017-10-17 18:00] VITALS: BP 147/66
[2017-10-17 22:00] VITALS: BP 122/59
[2017-10-18] MEDS: pyridostigmine br 60mg tablet PO SCH ×4 (00:14→23:44)
[2017-10-18] MEDS: piperacillin-tazo 2.25gm/50ml 50 ML IV SCH ×4 (01:56→19:11)
[2017-10-18] MEDS: ipratropium/albuterol 3ml nebule NEB SCH ×4 (03:34→20:05)
[2017-10-18 05:32] LABS: BASOPHILS # (AUTO) 0.1 X10'3 (0-0.2); BASOPHILS % (AUTO) 0.5 % (0-1); EOSINOPHILS # (AUTO) 0.2 X10'3 (0-0.9); EOSINOPHILS % (AUTO) 1.3 % (0-6); HEMATOCRIT 28.1 % (42.0-52.0); HEMOGLOBIN 9.4 g/dl (14.0-17.9); LYMPHOCYTES # (AUTO) 1.9 X10'3 (1.1-4.8); LYMPHOCYTES % (AUTO) 15.2 % (21-51); MEAN CORPUSCULAR HEMOGLOBIN 28.5 PG (27.0-31.0); MEAN CORPUSCULAR HGB CONC 33.4 % (33.0-36.5); MEAN CORPUSCULAR VOLUME 85.6 FL (78-98); MEAN PLATELET VOLUME 7.1 FL (7.4-10.4); MONOCYTES # (AUTO) 1.2 X10'3 (0-0.9); MONOCYTES % (AUTO) 9.9 % (2-12); NEUTROPHILS % (AUTO) 73.1 % (42-75); PLATELET COUNT 174 X10'3 (140-440); RED BLOOD COUNT 3.29 X10'6 (4.70-6.10); RED CELL DISTRIBUTION WIDTH 16.1 % (11.5-14.5); WHITE BLOOD COUNT 12.4 X10'3 (4.5-11.0)
[2017-10-18 06:00] VITALS: BP 119/60
[2017-10-18 06:03] LABS: ALANINE AMINOTRANSFERASE 18 U/L (12-78); ALBUMIN 1.9 G/DL (3.4-5.0); ALBUMIN/GLOBULIN RATIO 0.5 (1.1-1.5); ALKALINE PHOSPHATASE 86 IU/L (46-116); ANION GAP 13 (8-16); ASPARTATE AMINO TRANSFERASE 13 U/L (10-37); BILIRUBIN,TOTAL 0.3 MG/DL (0.1-1.0); BLOOD UREA NITROGEN 37 MG/DL (7-18); BUN/CREATININE RATIO 11.6 (5.4-32.0); CALCIUM 8.3 MG/DL (8.5-10.1); CHLORIDE 110 MMOL/L (99-107); GLUCOSE 87 MG/DL (70-104); MAGNESIUM 1.3 MG/DL (1.5-2.4); POTASSIUM 3.4 MMOL/L (3.5-5.1); SODIUM 141 MMOL/L (135-145); TOTAL CARBON DIOXIDE 18.5 MMOL/L (24-32); TOTAL PROTEIN 5.8 G/DL (6.4-8.2); eGFR 19 ML/MIN
[2017-10-18 06:12] LABS: ANISOCYTOSIS 1+; NUCLEATED RED BLOOD CELLS 1 /100WBC (0-0); PLATELET ESTIMATE NORMAL; POLYCHROMASIA FEW; TOTAL CELLS COUNTED 100
[2017-10-18] MEDS ORDERED: enoxaparin 100mg/ml syringe SUBCUT SCH ×2 (08:00→09:01)
[2017-10-18] MEDS: docusate sod 100mg capsule PO SCH ×2 (08:00→19:52)
[2017-10-18] MEDS: fluconazole-Diflucan 200mg/NS 100 ML IV SCH (08:38)
[2017-10-18] MEDS: potassium Cl 20 mEq SR tablet PO PRN ×3 (08:39→20:57)
[2017-10-18] MEDS: magnesium Cl slow-release 64mg tablet PO PRN ×2 (08:39→20:58)
[2017-10-18] MEDS: lactobacillus rhamnosus 10,000 MMU CELLS/CAPSULE PO SCH ×2 (08:40→19:11)
[2017-10-18] MEDS: famotidine 20mg tablet PO SCH (08:40)
[2017-10-18] MEDS: K and/or MAG REPLACEMENT MC SCH (08:41)
[2017-10-18 10:00] VITALS: BP 155/77
[2017-10-18] MEDS: chloestyramine/aspartame 4gm packet PO SCH ×2 (12:07→16:54)
[2017-10-18] MEDS: enoxaparin 30mg/0.3ml syringe SUBCUT SCH (12:15)
[2017-10-18] MEDS: enoxaparin 60mg/0.6ml syringe SUBCUT SCH (12:16)
[2017-10-18 18:00] VITALS: BP 143/72
[2017-10-18] MEDS ORDERED: tamsulosin 0.4mg capsule PO ONE (18:54)
[2017-10-18 21:38] VITALS: BP 142/72
[2017-10-19] MEDS: piperacillin-tazo 2.25gm/50ml 50 ML IV SCH ×4 (01:07→20:16)
[2017-10-19] MEDS: ipratropium/albuterol 3ml nebule NEB SCH ×4 (04:14→20:44)
[2017-10-19 06:00] VITALS: BP 146/74
[2017-10-19 06:26] LABS: MAGNESIUM 1.2 MG/DL (1.5-2.4); POTASSIUM 3.8 MMOL/L (3.5-5.1)
[2017-10-19] MEDS: K and/or MAG REPLACEMENT MC SCH (07:10)
[2017-10-19] MEDS: docusate sod 100mg capsule PO SCH ×2 (07:10→20:00)
[2017-10-19] MEDS: magnesium Cl slow-release 64mg tablet PO PRN (07:21)
[2017-10-19] MEDS: pyridostigmine br 60mg tablet PO SCH ×2 (07:22→16:04)
[2017-10-19] MEDS: levoTHYROXINE 75mcg tablet PO SCH (07:22)
[2017-10-19] MEDS: lactobacillus rhamnosus 10,000 MMU CELLS/CAPSULE PO SCH ×2 (07:22→20:16)
[2017-10-19] MEDS: enoxaparin 30mg/0.3ml syringe SUBCUT SCH (07:22)
[2017-10-19] MEDS: famotidine 20mg tablet PO SCH (07:22)
[2017-10-19] MEDS: tamsulosin 0.4mg capsule PO SCH (07:22)
[2017-10-19] MEDS: enoxaparin 60mg/0.6ml syringe SUBCUT SCH (07:23)
[2017-10-19] MEDS: fluconazole-Diflucan 200mg/NS 100 ML IV SCH (08:16)
[2017-10-19 10:00] VITALS: BP 125/71
[2017-10-19] MEDS: chloestyramine/aspartame 4gm packet PO SCH ×2 (10:11→16:04)
[2017-10-19] MEDS: HYDROcodone/acetaminophen 5mg/325mg tablet PO PRN (10:12)
[2017-10-19 17:29] VITALS: BP 143/60
[2017-10-19 22:00] VITALS: BP 156/67
[2017-10-20] MEDS: pyridostigmine br 60mg tablet PO SCH ×4 (00:58→23:04)
[2017-10-20] MEDS: piperacillin-tazo 2.25gm/50ml 50 ML IV SCH ×4 (00:59→20:19)
[2017-10-20] MEDS: ipratropium/albuterol 3ml nebule NEB SCH ×4 (02:21→20:09)
[2017-10-20 04:56] LABS: MAGNESIUM 1.3 MG/DL (1.5-2.4); POTASSIUM 3.6 MMOL/L (3.5-5.1)
[2017-10-20 06:00] VITALS: BP 163/83
[2017-10-20] MEDS: docusate sod 100mg capsule PO SCH ×2 (07:15→19:54)
[2017-10-20] MEDS: lactobacillus rhamnosus 10,000 MMU CELLS/CAPSULE PO SCH ×2 (07:26→20:19)
[2017-10-20] MEDS: levoTHYROXINE 75mcg tablet PO SCH (07:26)
[2017-10-20] MEDS: enoxaparin 30mg/0.3ml syringe SUBCUT SCH (07:26)
[2017-10-20] MEDS: fluconazole-Diflucan 200mg/NS 100 ML IV SCH (07:26)
[2017-10-20] MEDS: famotidine 20mg tablet PO SCH (07:26)
[2017-10-20] MEDS: tamsulosin 0.4mg capsule PO SCH (07:26)
[2017-10-20] MEDS: enoxaparin 60mg/0.6ml syringe SUBCUT SCH (07:27)
[2017-10-20] MEDS: magnesium Cl slow-release 64mg tablet PO PRN (07:27)
[2017-10-20] MEDS: K and/or MAG REPLACEMENT MC SCH (08:55)
[2017-10-20 10:00] VITALS: BP 137/75
[2017-10-20 10:15] LABS: ALANINE AMINOTRANSFERASE 27 U/L (12-78); ALBUMIN 2.3 G/DL (3.4-5.0); ALBUMIN/GLOBULIN RATIO 0.5 (1.1-1.5); ALKALINE PHOSPHATASE 85 IU/L (46-116); ANION GAP 11 (8-16); ASPARTATE AMINO TRANSFERASE 20 U/L (10-37); BILIRUBIN,TOTAL 0.3 MG/DL (0.1-1.0); BLOOD UREA NITROGEN 24 MG/DL (7-18); BUN/CREATININE RATIO 9.5 (5.4-32.0); CALCIUM 8.3 MG/DL (8.5-10.1); CHLORIDE 110 MMOL/L (99-107); CREATININE 2.53 MG/DL (0.60-1.10); GLUCOSE 118 MG/DL (70-104); POTASSIUM 3.4 MMOL/L (3.5-5.1); SODIUM 139 MMOL/L (135-145); TOTAL CARBON DIOXIDE 17.8 MMOL/L (24-32); TOTAL PROTEIN 7.3 G/DL (6.4-8.2); eGFR 25 ML/MIN
[2017-10-20] MEDS: chloestyramine/aspartame 4gm packet PO SCH ×2 (11:44→16:14)
[2017-10-20] MEDS ORDERED: potassium Cl 20 mEq SR tablet PO PRN (12:00)
[2017-10-20] MEDS ORDERED: potassium Cl 40MEQ/NS 500ml 500 ML IV PRN ×2 (12:00)
[2017-10-20 18:00] VITALS: BP 152/51
[2017-10-20] MEDS: potassium Cl 20 mEq SR tablet PO PRN ×2 (18:47→22:51)
[2017-10-20 23:20] VITALS: BP 150/64
[2017-10-21] MEDS: ipratropium/albuterol 3ml nebule NEB SCH ×4 (02:36→20:54)
[2017-10-21] MEDS: piperacillin-tazo 2.25gm/50ml 50 ML IV SCH ×4 (02:46→20:40)
[2017-10-21] MEDS: potassium Cl 20 mEq SR tablet PO PRN (02:52)
[2017-10-21] MEDS: mag hydrox/Alum hydrox/simeth 30ml oral suspension PO PRN ×3 (02:57→23:39)
[2017-10-21 06:00] VITALS: BP 145/75
[2017-10-21] MEDS: docusate sod 100mg capsule PO SCH ×2 (07:20→19:32)
[2017-10-21 07:21] LABS: MAGNESIUM 1.1 MG/DL (1.5-2.4); POTASSIUM 3.9 MMOL/L (3.5-5.1)
[2017-10-21] MEDS: levoTHYROXINE 75mcg tablet PO SCH (07:21)
[2017-10-21] MEDS: enoxaparin 60mg/0.6ml syringe SUBCUT SCH (07:22)
[2017-10-21] MEDS: lactobacillus rhamnosus 10,000 MMU CELLS/CAPSULE PO SCH ×2 (07:22→20:40)
[2017-10-21] MEDS: pyridostigmine br 60mg tablet PO SCH ×3 (07:22→23:41)
[2017-10-21] MEDS: famotidine 20mg tablet PO SCH (07:22)
[2017-10-21] MEDS: tamsulosin 0.4mg capsule PO SCH (07:22)
[2017-10-21] MEDS: enoxaparin 30mg/0.3ml syringe SUBCUT SCH (07:22)
[2017-10-21] MEDS: K and/or MAG REPLACEMENT MC SCH (08:00)
[2017-10-21 08:59] LABS: ALANINE AMINOTRANSFERASE 28 U/L (12-78); ALBUMIN 2.5 G/DL (3.4-5.0); ALBUMIN/GLOBULIN RATIO 0.5 (1.1-1.5); ALKALINE PHOSPHATASE 88 IU/L (46-116); ANION GAP 12 (8-16); ASPARTATE AMINO TRANSFERASE 15 U/L (10-37); BILIRUBIN,TOTAL 0.4 MG/DL (0.1-1.0); BLOOD UREA NITROGEN 19 MG/DL (7-18); BUN/CREATININE RATIO 8.2 (5.4-32.0); CALCIUM 8.7 MG/DL (8.5-10.1); CHLORIDE 108 MMOL/L (99-107); CREATININE 2.32 MG/DL (0.60-1.10); GLUCOSE 133 MG/DL (70-104); POTASSIUM 4.1 MMOL/L (3.5-5.1); SODIUM 139 MMOL/L (135-145); TOTAL PROTEIN 7.4 G/DL (6.4-8.2); eGFR 27 ML/MIN
[2017-10-21 10:00] VITALS: BP 128/68
[2017-10-21] MEDS: magnesium Cl slow-release 64mg tablet PO PRN ×2 (10:11→16:19)
[2017-10-21] MEDS: chloestyramine/aspartame 4gm packet PO SCH ×2 (11:28→16:08)
[2017-10-21] MEDS ORDERED: PIPE2.2535 IV (15:22)
[2017-10-21] MEDS ORDERED: PYRI60TA PO (15:22)
[2017-10-21] MEDS ORDERED: QUELT PO (15:22)
[2017-10-21] MEDS ORDERED: MAGN64TA10 PO (15:22)
[2017-10-21] MEDS ORDERED: FAMO20TA8 PO (15:22)
[2017-10-21] MEDS ORDERED: TEMA15CA PO (15:22)
[2017-10-21] MEDS ORDERED: LACT1CAP26 PO (15:22)
[2017-10-21] MEDS ORDERED: TAMS0.4C32 PO (15:22)
[2017-10-21] MEDS ORDERED: DIPH-423 PO (15:22)
[2017-10-21] MEDS ORDERED: MAG30ORA PO (15:22)
[2017-10-21] MEDS ORDERED: ENOX30DI4 SUBCUT (15:22)
[2017-10-21] MEDS ORDERED: NUT.237L84 PO (15:22)
[2017-10-21] MEDS ORDERED: HYDR-569 PO (15:22)
[2017-10-21] MEDS ORDERED: ENOX60DI10 SUBCUT (15:22)
[2017-10-21 18:00] VITALS: BP 139/71
[2017-10-21 21:45] VITALS: BP 148/81
[2017-10-22] MEDS: ipratropium/albuterol 3ml nebule NEB SCH ×2 (02:14→09:42)
[2017-10-22] MEDS: piperacillin-tazo 2.25gm/50ml 50 ML IV SCH ×2 (02:40→07:17)
[2017-10-22 06:00] VITALS: BP 133/67
[2017-10-22] MEDS: levoTHYROXINE 75mcg tablet PO SCH (07:16)
[2017-10-22] MEDS: pyridostigmine br 60mg tablet PO SCH (07:17)
[2017-10-22] MEDS: famotidine 20mg tablet PO SCH (07:17)
[2017-10-22] MEDS: tamsulosin 0.4mg capsule PO SCH (07:17)
[2017-10-22] MEDS: lactobacillus rhamnosus 10,000 MMU CELLS/CAPSULE PO SCH (07:17)
[2017-10-22] MEDS: enoxaparin 30mg/0.3ml syringe SUBCUT SCH (07:18)
[2017-10-22] MEDS: magnesium Cl slow-release 64mg tablet PO PRN (07:18)
[2017-10-22] MEDS: enoxaparin 60mg/0.6ml syringe SUBCUT SCH (07:18)
[2017-10-22] MEDS: K and/or MAG REPLACEMENT MC SCH (07:20)
[2017-10-22] MEDS: docusate sod 100mg capsule PO SCH (07:23)
[2017-10-22 09:39] LABS: ALANINE AMINOTRANSFERASE 34 U/L (12-78); ALBUMIN 2.5 G/DL (3.4-5.0); ALBUMIN/GLOBULIN RATIO 0.5 (1.1-1.5); ALKALINE PHOSPHATASE 85 IU/L (46-116); ANION GAP 12 (8-16); ASPARTATE AMINO TRANSFERASE 16 U/L (10-37); BILIRUBIN,TOTAL 0.4 MG/DL (0.1-1.0); BLOOD UREA NITROGEN 18 MG/DL (7-18); BUN/CREATININE RATIO 8.8 (5.4-32.0); CALCIUM 8.7 MG/DL (8.5-10.1); CHLORIDE 108 MMOL/L (99-107); CREATININE 2.05 MG/DL (0.60-1.10); GLUCOSE 132 MG/DL (70-104); POTASSIUM 3.7 MMOL/L (3.5-5.1); SODIUM 137 MMOL/L (135-145); TOTAL CARBON DIOXIDE 16.8 MMOL/L (24-32); TOTAL PROTEIN 7.3 G/DL (6.4-8.2); eGFR 31 ML/MIN
[2017-10-22 10:00] VITALS: BP 112/52
[2017-10-22] MEDS: mag hydrox/Alum hydrox/simeth 30ml oral suspension PO PRN (11:12)
[2017-10-22] MEDS: chloestyramine/aspartame 4gm packet PO SCH (11:12)
== END 2017-10-22 13:10 | DRG 862 ==
LOC: ER 16:51 → ED HOLD 20:33 → PCU 3S 22:05 → CICU 2S 10-10 03:09 → ORTHO 4S 10-14 14:40
PROVIDERS: ADMIT Family Medicine; ATTEND Internal Medicine Critical Care Medicine
PROC: 0W9F30Z Drainage of Abdominal Wall with Drainage Device, Percutaneous Approach (ICD-10-PCS; principal; 2017-10-09)
PROC: 02HV33Z Insertion of Infusion Device into Superior Vena Cava, Percutaneous Approach (ICD-10-PCS; 2017-10-10)
DX: T81.4XXA Infection following a procedure, initial encounter (principal); A41.9 Sepsis, unspecified organism; R65.21 Severe sepsis with septic shock; K65.1 Peritoneal abscess; N17.9 Acute kidney failure, unspecified; L03.311 Cellulitis of abdominal wall; K57.00 Diverticulitis of small intestine with perforation and abscess without bleeding; L02.211 Cutaneous abscess of abdominal wall; K63.2 Fistula of intestine; I82.629 Acute embolism and thrombosis of deep veins of unspecified upper extremity; E87.6 Hypokalemia; E83.42 Hypomagnesemia; G70.00 Myasthenia gravis without (acute) exacerbation; E86.0 Dehydration; I48.91 Unspecified atrial fibrillation; E03.9 Hypothyroidism, unspecified; I12.9 Hypertensive chronic kidney disease with stage 1 through stage 4 chronic kidney disease, or unspecified chronic kidney disease; M19.90 Unspecified osteoarthritis, unspecified site; N18.3 Chronic kidney disease, stage 3 (moderate); N40.0 Benign prostatic hyperplasia without lower urinary tract symptoms; J45.909 Unspecified asthma, uncomplicated; Z96.612 Presence of left artificial shoulder joint; Z96.643 Presence of artificial hip joint, bilateral; Z96.651 Presence of right artificial knee joint; Y83.8 Other surgical procedures as the cause of abnormal reaction of the patient, or of later complication, without mention of misadventure at the time of the procedure; Z90.49 Acquired absence of other specified parts of digestive tract; Z79.899 Other long term (current) drug therapy; Z87.891 Personal history of nicotine dependence; Z82.49 Family history of ischemic heart disease and other diseases of the circulatory system; Y92.89 Other specified places as the place of occurrence of the external cause
CPT/HCPCS: 10160; 36415; 36569; 36600; 71045; 74150; 74176; 76775; 76937; 76942; 80048; 80053; 81001; 82150; 82570; 82803; 82948; 83605; 83690; 83735; 83880; 84100; 84132; 84145; 84300; 84443; 84484; 85018; 85025; 85610; 85730; 87040; 87070; 87077; 87186; 87207; 93005; 93971; 94640; 94760; 96365; 96375; 97110; 97116; 97162; 97530; 99291; A4315; A4333; A4421; A6209; A6212; A6213; A6257; A6258; A6449; C1729; C1769; J0282; J1170; J1450; J1644; J1650; J1940; J1956; J2001; J2248; J2270; J2405; J2543; J3010; J3370; J3475; J3480; J3490; J7030; J7512; P9047

== ENCOUNTER 2017-10-27 16:38 | Inpatient (IN) | payer MEDICARE ==
[~2017-10-27] VITALS: Ht 182.9 cm; Wt 93.7 kg
[~2017-10-27 16:38] MED LIST changes: +DIPH-423 PO; +ENOX30DI4 SUBCUT; +ENOX60DI10 SUBCUT; +FAMO20TA8 PO; +FOLI0.4T2 PO; +HYDR-569 PO; +LACT1CAP26 PO; +LEVO75TA7 PO; -LISI40TA4 PO; +MAG30ORA PO; +MAGN64TA10 PO; +MULT-933 PO; +NUT.237L84 PO; +PIPE2.2535 IV; +PYRI60TA PO; -PYRI60TA2 PO; +QUELT PO; +TAMS0.4C32; +TAMS0.4C32 PO; +TEMA15CA PO; +UBID50TA3 PO
[2017-10-27 17:45] LABS: BASOPHILS # (AUTO) 0.1 X10'3 (0-0.2); BASOPHILS % (AUTO) 0.9 % (0-1); EOSINOPHILS # (AUTO) 0.1 X10'3 (0-0.9); EOSINOPHILS % (AUTO) 0.6 % (0-6); LYMPHOCYTES # (AUTO) 0.8 X10'3 (1.1-4.8); MEAN CORPUSCULAR HEMOGLOBIN 28.8 PG (27.0-31.0); MEAN CORPUSCULAR HGB CONC 33.5 % (33.0-36.5); MEAN CORPUSCULAR VOLUME 86.1 FL (78-98); MEAN PLATELET VOLUME 7.7 FL (7.4-10.4); MONOCYTES # (AUTO) 1.3 X10'3 (0-0.9); MONOCYTES % (AUTO) 9.8 % (2-12); NEUTROPHILS # (AUTO) 11.2 X10'3 (1.8-7.7); NEUTROPHILS % (AUTO) 82.7 % (42-75); PLATELET COUNT 223 X10'3 (140-440); RED BLOOD COUNT 3.84 X10'6 (4.70-6.10); RED CELL DISTRIBUTION WIDTH 18.1 % (11.5-14.5); WHITE BLOOD COUNT 13.5 X10'3 (4.5-11.0)
[2017-10-27] MEDS ORDERED: morphine 4 MG/ML inj SYRINge IV ONE ×2 (17:45→22:50)
[2017-10-27] MEDS ORDERED: ondansetron/PF 4mg/2ml inj IV ONE (17:45)
[2017-10-27 17:58] LABS: ALANINE AMINOTRANSFERASE 68 U/L (12-78); ALBUMIN 2.5 G/DL (3.4-5.0); ALBUMIN/GLOBULIN RATIO 0.5 (1.1-1.5); ALKALINE PHOSPHATASE 79 IU/L (46-116); ANION GAP 14 (8-16); ASPARTATE AMINO TRANSFERASE 28 U/L (10-37); BILIRUBIN,TOTAL 0.3 MG/DL (0.1-1.0); BLOOD UREA NITROGEN 33 MG/DL (7-18); BUN/CREATININE RATIO 15.3 (5.4-32.0); CALCIUM 8.8 MG/DL (8.5-10.1); CHLORIDE 102 MMOL/L (99-107); CREATININE 2.15 MG/DL (0.60-1.10); GLUCOSE 162 MG/DL (70-104); MAGNESIUM 1.1 MG/DL (1.5-2.4); POTASSIUM 3.2 MMOL/L (3.5-5.1); SODIUM 133 MMOL/L (135-145); TOTAL CARBON DIOXIDE 17.5 MMOL/L (24-32); TOTAL PROTEIN 7.1 G/DL (6.4-8.2); eGFR 30 ML/MIN
[2017-10-27 17:59] LABS: PARTIAL THROMBOPLASTIN TIME 27 SECONDS (22-32); PROTHROMBIN TIME 10.7 SECONDS (9.0-12.0)
[2017-10-27] MEDS ORDERED: normal saline 1000ML IV soln IV ONE (18:15)
[2017-10-27] MEDS ORDERED: normal saline 1000ML IV soln IVB ONE (20:35)
[2017-10-27] MEDS ORDERED: piperacillin/tazo 3.375gm/50ml 50 ML IV ONE (20:40)
[2017-10-27] MEDS ORDERED: diltiazem-NS 100mg/100ml 100 ML IV SCH (20:50)
[2017-10-27] MEDS ORDERED: dextrose 5%-normal saline 1,000 ML IV SCH (20:50)
[2017-10-27 21:30] LABS: ABG BASE EXCESS -10.9 mmol/L (-2.0-3.0); ABG HCO3 14.2 mmol/L (22.0-26.0); ABG OXYGEN SATURATION 93.5 % (95-98); ABG PCO2 (T) 29.4 mmHg (35.0-48.0); ABG PH (T) 7.301 (7.350-7.450); ALLEN'S TEST Positive; FCOHb 0.4 % (0.5-1.5); FMetHb 0.1 % (0.3-1.12); PATIENT TEMPERATURE 37.1; RESPIRATORY RATE (OBSERVED) 16 b/min; TOTAL HEMOGLOBIN 11.1 G/dl (14.0-18.0)
[2017-10-27 23:10] LABS: CLARITY,URINE Cloudy (Clear); COLOR,URINE Yellow (Yellow); GLUCOSE, URINE Negative (Neg); KETONES,URINE Negative (Neg); LEUKOCYTE ESTERASE ,URINE Negative (Neg); NITRITES, URINE Negative (Neg); OCCULT BLOOD,URINE Negative (Neg); PH,URINE 5.5 (4.8-8.0); PROTEIN,URINE 100 mg/dl (Neg); UROBILINOGEN,URINE 0.2 E.U/dL (0.2-1.0)
[2017-10-27 23:12] LABS: UA COLLECTION TYPE CLN CATCH MIDSTREAM
[2017-10-27 23:21] LABS: BACTERIA,URINE 1+ /HPF (Neg); RBC,URINE NONE SEEN /HPF (0-2); SQUAMOUS EPITHELIAL CELL,UR MODERATE /LPF (FEW); WBC,URINE 0-4 /HPF (0-4)
[2017-10-27 23:22] LABS: CAL OXALATE CRYSTALS 2+ /HPF (NEGATIVE); MUCUS STRANDS NONE SEEN /LPF (Neg)
[2017-10-27 23:23] LABS: FINE GRANULAR CAST 0-3 /LPF (NEGATIVE)
[2017-10-28] VITALS (23 sets, daily range): BP systolic 116–186; BP diastolic 43–62
[2017-10-28] MEDS ORDERED: mag hydrox/Alum hydrox/simeth 30ml oral suspension PO PRN (00:45)
[2017-10-28] MEDS ORDERED: magnesium hydroxide 30ml (MOM) UD suspension PO PRN ×2 (00:45→19:00)
[2017-10-28] MEDS ORDERED: morphine 4 MG/ML inj SYRINge IV PRN ×5 (00:45→19:00)
[2017-10-28] MEDS ORDERED: ondansetron/PF 4mg/2ml inj IV PRN ×3 (00:45→19:00)
[2017-10-28] MEDS ORDERED: acetaminophen 325mg tablet PO PRN ×3 (00:45→19:00)
[2017-10-28] MEDS ORDERED: temazepam 15mg capsule PO PRN (00:55)
[2017-10-28] MEDS ORDERED: magnesium 4gm in 100ml NS 100 ML IV PRN (02:35)
[2017-10-28] MEDS ORDERED: potassium Cl 20 mEq SR tablet PO PRN ×2 (02:35)
[2017-10-28] MEDS ORDERED: potassium Cl 40MEQ/NS 500ml 500 ML IV PRN (02:35)
[2017-10-28] MEDS ORDERED: magnesium Cl slow-release 64mg tablet PO PRN (02:35)
[2017-10-28] MEDS: piperacillin-tazo 2.25gm/50ml 50 ML IV SCH ×4 (03:12→20:41)
[2017-10-28] MEDS: normal saline 1000ml 1,000 ML IV SCH ×3 (03:43→22:15)
[2017-10-28] MEDS: diltiazem-NS 100mg/100ml 100 ML IV SCH ×3 (03:45→21:24)
[2017-10-28] MEDS: magnesium 1gm/100ml D5W IVPB 100 ML IV PRN ×2 (03:46→05:07)
[2017-10-28] MEDS: albuterol 2.5 MG/3 ML nebule NEB PRN (04:54)
[2017-10-28] MEDS: morphine 4 MG/ML inj SYRINge IV PRN ×4 (04:58→14:42)
[2017-10-28] MEDS: tamsulosin 0.4mg capsule PO SCH (08:00)
[2017-10-28 09:09] LABS: BASOPHILS % (AUTO) 0.1 % (0-1); EOSINOPHILS % (AUTO) 0.1 % (0-6); HEMATOCRIT 30.8 % (42.0-52.0); HEMOGLOBIN 10.3 g/dl (14.0-17.9); LYMPHOCYTES # (AUTO) 0.8 X10'3 (1.1-4.8); LYMPHOCYTES % (AUTO) 3.9 % (21-51); MEAN CORPUSCULAR HEMOGLOBIN 28.9 PG (27.0-31.0); MEAN CORPUSCULAR HGB CONC 33.4 % (33.0-36.5); MEAN CORPUSCULAR VOLUME 86.3 FL (78-98); MEAN PLATELET VOLUME 7.8 FL (7.4-10.4); MONOCYTES # (AUTO) 1.8 X10'3 (0-0.9); MONOCYTES % (AUTO) 9.2 % (2-12); NEUTROPHILS # (AUTO) 16.9 X10'3 (1.8-7.7); NEUTROPHILS % (AUTO) 86.7 % (42-75); PLATELET COUNT 175 X10'3 (140-440); RED BLOOD COUNT 3.56 X10'6 (4.70-6.10); RED CELL DISTRIBUTION WIDTH 19.9 % (11.5-14.5); WHITE BLOOD COUNT 19.5 X10'3 (4.5-11.0)
[2017-10-28 09:34] LABS: ALANINE AMINOTRANSFERASE 53 U/L (12-78); ALBUMIN/GLOBULIN RATIO 0.5 (1.1-1.5); ALKALINE PHOSPHATASE 63 IU/L (46-116); ANION GAP 15 (8-16); ASPARTATE AMINO TRANSFERASE 20 U/L (10-37); BILIRUBIN,TOTAL 0.6 MG/DL (0.1-1.0); BLOOD UREA NITROGEN 30 MG/DL (7-18); BUN/CREATININE RATIO 15.5 (5.4-32.0); CALCIUM 8.3 MG/DL (8.5-10.1); CHLORIDE 106 MMOL/L (99-107); CREATININE 1.93 MG/DL (0.60-1.10); GLUCOSE 140 MG/DL (70-104); MAGNESIUM 2.9 MG/DL (1.5-2.4); PHOSPHORUS 3.7 MG/DL (2.3-4.5); POTASSIUM 3.3 MMOL/L (3.5-5.1); SODIUM 136 MMOL/L (135-145); TOTAL CARBON DIOXIDE 15.4 MMOL/L (24-32); TOTAL PROTEIN 6.4 G/DL (6.4-8.2); eGFR 34 ML/MIN
[2017-10-28] MEDS ORDERED: LIDOcaine 1% 30ml vial 5 ML in potassium Cl 40MEQ/NS 500ml 500 ML IV PRN (09:45)
[2017-10-28] MEDS: potassium Cl 40MEQ/NS 500ml 500 ML IV PRN (11:36)
[2017-10-28] MEDS ORDERED: etomidate 2mg/ml inj. ONE (14:00)
[2017-10-28] MEDS ORDERED: sod chloride 0.9% 10ml flush syringe IV ONE (14:00)
[2017-10-28] MEDS ORDERED: epiNEPHrine 0.1mg/ml 10ml syringe ONE (14:00)
[2017-10-28] MEDS: fluconazole-Diflucan 200mg/NS 100 ML IV SCH (14:42)
[2017-10-28] MEDS ORDERED: LIDOcaine 1% (10mg/ml) 2ml vial ONE (17:45)
[2017-10-28] MEDS ORDERED: desflurane 240ml liquid inh. IH ONE (17:47)
[2017-10-28] MEDS ORDERED: fentaNYL /PF 50mcg/ml 5ml ampule ONE (17:52)
[2017-10-28] MEDS ORDERED: midazolam 2 mg/2 ml injection ONE (17:52)
[2017-10-28] MEDS ORDERED: rocuronium 10mg/ml inj IV ONE (17:56)
[2017-10-28] MEDS ORDERED: LIDOcaine 1%/PF 5ML 10 MG/ML VIAL ONE (18:19)
[2017-10-28] MEDS ORDERED: ringers solution, lacted 1,000 ML IV SCH (18:54)
[2017-10-28] MEDS ORDERED: proCHLORperazine 10 MG/2 ml inj IV PRN (18:55)
[2017-10-28] MEDS ORDERED: midazolam 100mg in NS 100ml 100 ML IV PRN (19:19)
[2017-10-28] MEDS: albuterol 2.5 MG/3 ML nebule NEB SCH ×2 (19:47→22:44)
[2017-10-28] MEDS: FENTANYL-0.9 % NACL/PF 100 ML IV PRN (19:47)
[2017-10-28 20:01] LABS: ABG BASE EXCESS -14.6 mmol/L (-2.0-3.0); ABG HCO3 13.2 mmol/L (22.0-26.0); ABG OXYGEN SATURATION 99.1 % (95-98); ABG PCO2 (T) 38.5 mmHg (35.0-48.0); ABG PH (T) 7.154 (7.350-7.450); ABG PO2 (T) 285.2 mmHg (83-108); FCOHb 0.3 % (0.5-1.5); FMetHb 0.5 % (0.3-1.12); FO2Hb 98.3 % (94-100); MINUTE VOLUME 8 L/min; PEEP 5 cm H2O; RESPIRATORY RATE 12 b/min; RESPIRATORY RATE (OBSERVED) 12 b/min; TIDAL VOLUME 600 mL; TOTAL HEMOGLOBIN 10.4 G/dl (14.0-18.0)
[2017-10-28 20:19] LABS: BASOPHILS # (AUTO) 0.1 X10'3 (0-0.2); BASOPHILS % (AUTO) 0.5 % (0-1); EOSINOPHILS % (AUTO) 0.2 % (0-6); HEMATOCRIT 27.7 % (42.0-52.0); HEMOGLOBIN 9.2 g/dl (14.0-17.9); LYMPHOCYTES # (AUTO) 0.8 X10'3 (1.1-4.8); LYMPHOCYTES % (AUTO) 4.4 % (21-51); MEAN CORPUSCULAR HEMOGLOBIN 28.9 PG (27.0-31.0); MEAN CORPUSCULAR HGB CONC 33.4 % (33.0-36.5); MEAN CORPUSCULAR VOLUME 86.6 FL (78-98); MEAN PLATELET VOLUME 7.8 FL (7.4-10.4); MONOCYTES # (AUTO) 1.4 X10'3 (0-0.9); MONOCYTES % (AUTO) 8.3 % (2-12); NEUTROPHILS # (AUTO) 14.8 X10'3 (1.8-7.7); NEUTROPHILS % (AUTO) 86.6 % (42-75); PLATELET COUNT 148 X10'3 (140-440); RED CELL DISTRIBUTION WIDTH 19.5 % (11.5-14.5)
[2017-10-28 20:34] LABS: ALANINE AMINOTRANSFERASE 45 U/L (12-78); ALBUMIN 1.6 G/DL (3.4-5.0); ALBUMIN/GLOBULIN RATIO 0.4 (1.1-1.5); ALKALINE PHOSPHATASE 58 IU/L (46-116); ANION GAP 11 (8-16); ASPARTATE AMINO TRANSFERASE 26 U/L (10-37); BILIRUBIN,TOTAL 0.5 MG/DL (0.1-1.0); BLOOD UREA NITROGEN 28 MG/DL (7-18); BUN/CREATININE RATIO 15.1 (5.4-32.0); CALCIUM 7.7 MG/DL (8.5-10.1); CHLORIDE 112 MMOL/L (99-107); CREATININE 1.86 MG/DL (0.60-1.10); GLUCOSE 131 MG/DL (70-104); MAGNESIUM 2.1 MG/DL (1.5-2.4); PHOSPHORUS 4.2 MG/DL (2.3-4.5); POTASSIUM 3.7 MMOL/L (3.5-5.1); SODIUM 139 MMOL/L (135-145); TOTAL CARBON DIOXIDE 16.2 MMOL/L (24-32); TOTAL PROTEIN 5.6 G/DL (6.4-8.2); eGFR 35 ML/MIN
[2017-10-28] MEDS ORDERED: tPA-cathflo 2 MG/2 ml IV flush IVF ONE (20:35)
[2017-10-28] MEDS: sodium bicarbonate (8.4%) inj. 150 MEQ in dextrose 5%-water 1,000 ML IV SCH (22:16)
[2017-10-29] VITALS (23 sets, daily range): BP systolic 108–164; BP diastolic 26–58
[2017-10-29] MEDS: piperacillin-tazo 2.25gm/50ml 50 ML IV SCH ×4 (01:57→21:13)
[2017-10-29] MEDS: FENTANYL-0.9 % NACL/PF 100 ML IV PRN (01:58)
[2017-10-29] MEDS: albuterol 2.5 MG/3 ML nebule NEB SCH ×6 (02:25→22:58)
[2017-10-29 03:35] LABS: ABG HCO3 14.3 mmol/L (22.0-26.0); ABG OXYGEN SATURATION 95.9 % (95-98); ABG PCO2 (T) 31.1 mmHg (35.0-48.0); ABG PH (T) 7.284 (7.350-7.450); ABG PO2 (T) 87.6 mmHg (83-108); FCOHb 0.3 % (0.5-1.5); FO2Hb 95.6 % (94-100); MINUTE VOLUME 14 L/min; PATIENT TEMPERATURE 37.8; PEEP 5 cm H2O; RESPIRATORY RATE 12 b/min; RESPIRATORY RATE (OBSERVED) 20 b/min; TIDAL VOLUME 600 mL; TOTAL HEMOGLOBIN 10.3 G/dl (14.0-18.0)
[2017-10-29 04:46] LABS: BASOPHILS # (AUTO) 0.2 X10'3 (0-0.2); BASOPHILS % (AUTO) 0.9 % (0-1); EOSINOPHILS # (AUTO) 0.2 X10'3 (0-0.9); EOSINOPHILS % (AUTO) 1.5 % (0-6); HEMATOCRIT 28.5 % (42.0-52.0); HEMOGLOBIN 9.5 g/dl (14.0-17.9); LYMPHOCYTES # (AUTO) 0.9 X10'3 (1.1-4.8); LYMPHOCYTES % (AUTO) 5.4 % (21-51); MEAN CORPUSCULAR HGB CONC 33.3 % (33.0-36.5); MEAN PLATELET VOLUME 8.5 FL (7.4-10.4); MONOCYTES # (AUTO) 1.5 X10'3 (0-0.9); MONOCYTES % (AUTO) 9.1 % (2-12); NEUTROPHILS # (AUTO) 13.7 X10'3 (1.8-7.7); NEUTROPHILS % (AUTO) 83.1 % (42-75); PLATELET COUNT 156 X10'3 (140-440); RED BLOOD COUNT 3.27 X10'6 (4.70-6.10); RED CELL DISTRIBUTION WIDTH 19.3 % (11.5-14.5); WHITE BLOOD COUNT 16.5 X10'3 (4.5-11.0)
[2017-10-29 05:21] LABS: ALANINE AMINOTRANSFERASE 42 U/L (12-78); ALBUMIN 1.6 G/DL (3.4-5.0); ALBUMIN/GLOBULIN RATIO 0.4 (1.1-1.5); ALKALINE PHOSPHATASE 55 IU/L (46-116); ANION GAP 14 (8-16); ASPARTATE AMINO TRANSFERASE 19 U/L (10-37); BILIRUBIN,TOTAL 0.6 MG/DL (0.1-1.0); BLOOD UREA NITROGEN 32 MG/DL (7-18); BUN/CREATININE RATIO 13.6 (5.4-32.0); CALCIUM 8.8 MG/DL (8.5-10.1); CHLORIDE 108 MMOL/L (99-107); CREATININE 2.35 MG/DL (0.60-1.10); GLUCOSE 162 MG/DL (70-104); MAGNESIUM 2.1 MG/DL (1.5-2.4); PHOSPHORUS 4.4 MG/DL (2.3-4.5); POTASSIUM 3.8 MMOL/L (3.5-5.1); SODIUM 138 MMOL/L (135-145); TOTAL CARBON DIOXIDE 16.2 MMOL/L (24-32); TOTAL PROTEIN 5.8 G/DL (6.4-8.2); eGFR 27 ML/MIN
[2017-10-29] MEDS: sodium bicarbonate (8.4%) inj. 150 MEQ in dextrose 5%-water 1,000 ML IV SCH ×2 (07:30→14:37)
[2017-10-29] MEDS: diltiazem-NS 100mg/100ml 100 ML IV SCH (07:31)
[2017-10-29] MEDS: tamsulosin 0.4mg capsule PO SCH (08:00)
[2017-10-29] MEDS: fluconazole-Diflucan 200mg/NS 100 ML IV SCH (09:51)
[2017-10-29] MEDS: morphine 4 MG/ML inj SYRINge IV PRN (14:34)
[2017-10-29] MEDS: mineral oil/petrolatum ophthal oint EACHEYE SCH (20:00)
[2017-10-29 20:50] LABS: CLARITY,URINE CLOUDY (Clear); COLOR,URINE YELLOW (Yellow); GLUCOSE, URINE NEGATIVE (Neg); KETONES,URINE NEGATIVE (Neg); LEUKOCYTE ESTERASE ,URINE NEGATIVE (Neg); NITRITES, URINE NEGATIVE (Neg); OCCULT BLOOD,URINE MODERATE (Neg); PROTEIN,URINE 100 mg/dl (Neg); UROBILINOGEN,URINE 0.2 E.U/dL (0.2-1.0)
[2017-10-29 20:54] LABS: UA COLLECTION TYPE FOLEY CATH
[2017-10-29] MEDS: normal saline 1000ml 1,000 ML IV SCH (20:59)
[2017-10-29 21:12] LABS: BACTERIA,URINE FEW /HPF (Neg); SQUAMOUS EPITHELIAL CELL,UR FEW /LPF (FEW); WBC,URINE 0-4 /HPF (0-4)
[2017-10-29 21:13] LABS: CAL OXALATE CRYSTALS FEW /HPF (NEGATIVE)
[2017-10-29] MEDS: diltiazem 30mg tablet PO SCH (21:13)
[2017-10-29] MEDS: lactobacillus rhamnosus 10,000 MMU CELLS/CAPSULE PO SCH (21:13)
[2017-10-29 21:35] LABS: UA EOSINOPHILS NO EOS /HPF
[2017-10-30] VITALS (23 sets, daily range): BP systolic 111–178; BP diastolic 32–58
[2017-10-30] MEDS: sodium bicarbonate (8.4%) inj. 150 MEQ in dextrose 5%-water 1,000 ML IV SCH ×4 (00:49→22:26)
[2017-10-30] MEDS: mineral oil/petrolatum ophthal oint EACHEYE SCH ×4 (02:15→19:57)
[2017-10-30] MEDS: piperacillin-tazo 2.25gm/50ml 50 ML IV SCH ×4 (02:16→19:56)
[2017-10-30] MEDS: albuterol 2.5 MG/3 ML nebule NEB SCH ×6 (03:38→23:13)
[2017-10-30 05:08] LABS: BASOPHILS # (AUTO) 0.1 X10'3 (0-0.2); EOSINOPHILS # (AUTO) 0.7 X10'3 (0-0.9); EOSINOPHILS % (AUTO) 6.3 % (0-6); HEMATOCRIT 25.4 % (42.0-52.0); HEMOGLOBIN 8.6 g/dl (14.0-17.9); LYMPHOCYTES # (AUTO) 0.5 X10'3 (1.1-4.8); LYMPHOCYTES % (AUTO) 4.4 % (21-51); MEAN CORPUSCULAR HGB CONC 33.7 % (33.0-36.5); MEAN CORPUSCULAR VOLUME 86.1 FL (78-98); MEAN PLATELET VOLUME 8.6 FL (7.4-10.4); MONOCYTES # (AUTO) 0.9 X10'3 (0-0.9); MONOCYTES % (AUTO) 8.1 % (2-12); NEUTROPHILS # (AUTO) 8.6 X10'3 (1.8-7.7); NEUTROPHILS % (AUTO) 80.2 % (42-75); PLATELET COUNT 116 X10'3 (140-440); RED BLOOD COUNT 2.95 X10'6 (4.70-6.10); RED CELL DISTRIBUTION WIDTH 20.3 % (11.5-14.5); WHITE BLOOD COUNT 10.7 X10'3 (4.5-11.0)
[2017-10-30 05:25] LABS: ABG BASE EXCESS -1.9 mmol/L (-2.0-3.0); ABG HCO3 21.7 mmol/L (22.0-26.0); ABG OXYGEN SATURATION 94.2 % (95-98); ABG PCO2 (T) 33.7 mmHg (35.0-48.0); ABG PO2 (T) 75.2 mmHg (83-108); FCOHb 0.3 % (0.5-1.5); FO2Hb 93.9 % (94-100); MINUTE VOLUME 11 L/min; PEEP 5 cm H2O; RESPIRATORY RATE 12 b/min; RESPIRATORY RATE (OBSERVED) 16 b/min; TIDAL VOLUME 600 mL; TOTAL HEMOGLOBIN 9.4 G/dl (14.0-18.0)
[2017-10-30 05:25] LABS: ALANINE AMINOTRANSFERASE 34 U/L (12-78); ALBUMIN 1.3 G/DL (3.4-5.0); ALBUMIN/GLOBULIN RATIO 0.3 (1.1-1.5); ALKALINE PHOSPHATASE 63 IU/L (46-116); ANION GAP 16 (8-16); ASPARTATE AMINO TRANSFERASE 18 U/L (10-37); BILIRUBIN,TOTAL 0.5 MG/DL (0.1-1.0); BLOOD UREA NITROGEN 45 MG/DL (7-18); BUN/CREATININE RATIO 10.3 (5.4-32.0); CALCIUM 8.8 MG/DL (8.5-10.1); CHLORIDE 102 MMOL/L (99-107); CREATININE 4.36 MG/DL (0.60-1.10); GLUCOSE 119 MG/DL (70-104); POTASSIUM 3.1 MMOL/L (3.5-5.1); SODIUM 140 MMOL/L (135-145); TOTAL CARBON DIOXIDE 21.9 MMOL/L (24-32); TOTAL PROTEIN 5.7 G/DL (6.4-8.2); eGFR 13 ML/MIN
[2017-10-30] MEDS: diltiazem 30mg tablet PO SCH ×4 (07:32→22:59)
[2017-10-30] MEDS: tamsulosin 0.4mg capsule PO SCH (07:32)
[2017-10-30] MEDS: lactobacillus rhamnosus 10,000 MMU CELLS/CAPSULE PO SCH ×2 (07:32→19:56)
[2017-10-30] MEDS: potassium Cl 40MEQ/NS 500ml 500 ML IV PRN (08:44)
[2017-10-30] MEDS: fluconazole-Diflucan 200mg/NS 100 ML IV SCH (08:48)
[2017-10-30 08:50] LABS: PHOSPHORUS 5.4 MG/DL (2.3-4.5)
[2017-10-30] MEDS: FENTANYL-0.9 % NACL/PF 100 ML IV PRN (11:30)
[2017-10-31] VITALS (26 sets, daily range): BP systolic 78–166; BP diastolic 34–68
[2017-10-31] MEDS: piperacillin-tazo 2.25gm/50ml 50 ML IV SCH ×4 (01:20→21:10)
[2017-10-31] MEDS: mineral oil/petrolatum ophthal oint EACHEYE SCH ×4 (01:20→20:00)
[2017-10-31] MEDS: FENTANYL-0.9 % NACL/PF 100 ML IV PRN ×2 (02:32→19:00)
[2017-10-31] MEDS: albuterol 2.5 MG/3 ML nebule NEB SCH ×3 (03:01→11:00)
[2017-10-31 03:41] LABS: ABG BASE EXCESS 4.4 mmol/L (-2.0-3.0); ABG HCO3 28.5 mmol/L (22.0-26.0); ABG PCO2 (T) 42.5 mmHg (35.0-48.0); ABG PH (T) 7.448 (7.350-7.450); ABG PO2 (T) 68.2 mmHg (83-108); FCOHb 0.3 % (0.5-1.5); FMetHb 0.3 % (0.3-1.12); FO2Hb 91.4 % (94-100); MINUTE VOLUME 12 L/min; PATIENT TEMPERATURE 38.1; PEEP 5 cm H2O; RESPIRATORY RATE 12 b/min; RESPIRATORY RATE (OBSERVED) 18 b/min; TIDAL VOLUME 600 mL; TOTAL HEMOGLOBIN 7.4 G/dl (14.0-18.0)
[2017-10-31 04:02] LABS: BASOPHILS % (AUTO) 0.2 % (0-1); EOSINOPHILS # (AUTO) 0.9 X10'3 (0-0.9); HEMOGLOBIN 7.2 g/dl (14.0-17.9); LYMPHOCYTES # (AUTO) 0.8 X10'3 (1.1-4.8); LYMPHOCYTES % (AUTO) 9.3 % (21-51); MEAN CORPUSCULAR HGB CONC 33.9 % (33.0-36.5); MEAN CORPUSCULAR VOLUME 85.4 FL (78-98); MONOCYTES # (AUTO) 0.7 X10'3 (0-0.9); NEUTROPHILS # (AUTO) 5.7 X10'3 (1.8-7.7); NEUTROPHILS % (AUTO) 70.5 % (42-75); RED BLOOD COUNT 2.49 X10'6 (4.70-6.10); RED CELL DISTRIBUTION WIDTH 20.3 % (11.5-14.5); WHITE BLOOD COUNT 8.1 X10'3 (4.5-11.0)
[2017-10-31 04:10] LABS: HEMATOCRIT 21.3 % (42.0-52.0)
[2017-10-31 04:18] LABS: ALANINE AMINOTRANSFERASE 24 U/L (12-78); ALBUMIN 1.1 G/DL (3.4-5.0); ALBUMIN/GLOBULIN RATIO 0.3 (1.1-1.5); ALKALINE PHOSPHATASE 63 IU/L (46-116); ANION GAP 11 (8-16); ASPARTATE AMINO TRANSFERASE 15 U/L (10-37); BILIRUBIN,TOTAL 0.4 MG/DL (0.1-1.0); BLOOD UREA NITROGEN 62 MG/DL (7-18); BUN/CREATININE RATIO 10.6 (5.4-32.0); CALCIUM 8.3 MG/DL (8.5-10.1); CHLORIDE 100 MMOL/L (99-107); CREATININE 5.83 MG/DL (0.60-1.10); GLUCOSE 150 MG/DL (70-104); MEAN PLATELET VOLUME 8.1 FL (7.4-10.4); PLATELET COUNT 91 X10'3 (140-440); SODIUM 139 MMOL/L (135-145); TOTAL CARBON DIOXIDE 28.5 MMOL/L (24-32); TOTAL PROTEIN 5.4 G/DL (6.4-8.2); eGFR 9 ML/MIN
[2017-10-31 04:31] LABS: POTASSIUM 2.6 MMOL/L (3.5-5.1)
[2017-10-31] MEDS ORDERED: potassium Cl 40MEQ/NS 500ml 500 ML IV PRN ×2 (04:35)
[2017-10-31] MEDS ORDERED: potassium Cl 20 mEq SR tablet PO PRN (04:35)
[2017-10-31] MEDS ORDERED: potassium Cl 40MEQ/NS 500ml 500 ML IV ONE (04:40)
[2017-10-31] MEDS: fluconazole-Diflucan 200mg/NS 100 ML IV SCH (07:34)
[2017-10-31] MEDS: diltiazem 30mg tablet PO SCH (08:00)
[2017-10-31] MEDS: tamsulosin 0.4mg capsule PO SCH (08:00)
[2017-10-31] MEDS: K and/or MAG REPLACEMENT MC SCH (08:00)
[2017-10-31] MEDS: potassium Cl oral solution 20 MEQ/15 ML PO PRN ×2 (08:30→13:10)
[2017-10-31] MEDS: sodium bicarbonate (8.4%) inj. 150 MEQ in dextrose 5%-water 1,000 ML IV SCH (08:32)
[2017-10-31] MEDS: lactobacillus rhamnosus 10,000 MMU CELLS/CAPSULE PO SCH ×2 (08:32→21:09)
[2017-10-31] MEDS ORDERED: CADD PCA waste documentation MC PRN (08:50)
[2017-10-31] MEDS ORDERED: naloxone 0.4 mg/ml inj IV PRN (08:50)
[2017-10-31] MEDS ORDERED: ipratropium/albuterol 3ml nebule NEB PRN (08:50)
[2017-10-31] MEDS ORDERED: racepinephrine 11.25mg/0.5ml nebule NEB PRN (08:50)
[2017-10-31] MEDS: ipratropium/albuterol 3ml nebule NEB SCH ×3 (09:00→20:34)
[2017-10-31] MEDS: HYDROmorphone/NS 1 mg/ml CADD 50 ML IV SCH ×8 (10:00→23:00)
[2017-10-31 10:26] LABS: ABG BASE EXCESS 4.2 mmol/L (-2.0-3.0); ABG HCO3 28.4 mmol/L (22.0-26.0); ABG OXYGEN SATURATION 96.2 % (95-98); ABG PCO2 (T) 40.9 mmHg (35.0-48.0); ABG PH (T) 7.459 (7.350-7.450); ABG PO2 (T) 88.2 mmHg (83-108); FCOHb 0.3 % (0.5-1.5); FLOW 3 L/min; FMetHb 0.2 % (0.3-1.12); FO2Hb 95.7 % (94-100); TOTAL HEMOGLOBIN 7.6 G/dl (14.0-18.0)
[2017-10-31] MEDS ORDERED: normal saline 1000ml 100 ML IV PRN (10:52)
[2017-10-31] MEDS ORDERED: normal saline 1000ml 250 ML IV PRN (10:52)
[2017-10-31] MEDS ORDERED: epoetin 20,000 units/ml inj IV ONE (10:55)
[2017-10-31] MEDS: normal saline 1000ml 1,000 ML IV SCH ×2 (10:58→21:17)
[2017-10-31] MEDS ORDERED: heparin 1,000 units/ml 10ml inj HE ONE ×4 (11:00→15:00)
[2017-10-31 11:54] LABS: OCCULT BLOOD STOOL POSITIVE (Neg)
[2017-10-31] MEDS ORDERED: amiodarone 150mg/dext, iso-os 100 ML IV ONE (12:40)
[2017-10-31] MEDS: amiodarone/D5 360MG/200ML BAG 200 ML IV SCH ×2 (13:09→19:57)
[2017-10-31] MEDS: pantoprazole 40MG/NS 100ML BAG 100 ML IV SCH ×3 (13:10→21:17)
[2017-10-31 14:20] LABS: ABG BASE EXCESS 1.2 mmol/L (-2.0-3.0); ABG HCO3 25.6 mmol/L (22.0-26.0); ABG PCO2 (T) 39.2 mmHg (35.0-48.0); ABG PH (T) 7.432 (7.350-7.450); ABG PO2 (T) 96.5 mmHg (83-108); FCOHb 0.3 % (0.5-1.5); FLOW 3 L/min; FMetHb 0.2 % (0.3-1.12); FO2Hb 96.5 % (94-100); TOTAL HEMOGLOBIN 7.8 G/dl (14.0-18.0)
[2017-10-31] MEDS ORDERED: MIDAZolam 5mg/ml 2ml vial ONE (16:59)
[2017-10-31] MEDS ORDERED: etomidate 2mg/ml inj. IV ONE (17:00)
[2017-10-31] MEDS ORDERED: epiNEPHrine 0.1mg/ml 10ml syringe IV ONE (17:10)
[2017-10-31] MEDS ORDERED: NORepinephrine 8mg/ 250ml NS 250 ML IV ONE (17:11)
[2017-10-31] MEDS ORDERED: midazolam 100mg in NS 100ml 100 ML IV PRN (17:20)
[2017-10-31] MEDS ORDERED: tPA-cathflo 2 MG/2 ml IV flush IVF ONE ×2 (17:45)
[2017-10-31] MEDS ORDERED: epiNEPHrine 1 mg/ml inj SQ STA (17:47)
[2017-10-31] MEDS ORDERED: NORepinephrine 8mg/ 250ml NS 250 ML IV SCH (17:50)
[2017-11-01] VITALS (29 sets, daily range): BP systolic 98–152; BP diastolic 36–78
[2017-11-01] MEDS: amiodarone/D5 360MG/200ML BAG 200 ML IV SCH ×4 (00:48→20:01)
[2017-11-01] MEDS: pantoprazole 40MG/NS 100ML BAG 100 ML IV SCH ×5 (01:00→21:48)
[2017-11-01] MEDS: HYDROmorphone/NS 1 mg/ml CADD 50 ML IV SCH ×8 (01:00→15:00)
[2017-11-01] MEDS: piperacillin-tazo 2.25gm/50ml 50 ML IV SCH ×4 (02:17→20:02)
[2017-11-01] MEDS: mineral oil/petrolatum ophthal oint EACHEYE SCH ×4 (02:17→20:01)
[2017-11-01] MEDS: ipratropium/albuterol 3ml nebule NEB SCH ×4 (02:48→21:00)
[2017-11-01 03:05] LABS: ABG BASE EXCESS 1.8 mmol/L (-2.0-3.0); ABG HCO3 25.8 mmol/L (22.0-26.0); ABG OXYGEN SATURATION 98.4 % (95-98); ABG PCO2 (T) 37.7 mmHg (35.0-48.0); ABG PH (T) 7.453 (7.350-7.450); ABG PO2 (T) 125.4 mmHg (83-108); FCOHb 1.3 % (0.5-1.5); FMetHb 0.5 % (0.3-1.12); FO2Hb 96.6 % (94-100); MINUTE VOLUME 9 L/min; PEEP 5 cm H2O; RESPIRATORY RATE 12 b/min; RESPIRATORY RATE (OBSERVED) 14 b/min; TIDAL VOLUME 600 mL; TOTAL HEMOGLOBIN 7.7 G/dl (14.0-18.0)
[2017-11-01 05:14] LABS: BASOPHILS # (AUTO) 0.1 X10'3 (0-0.2); BASOPHILS % (AUTO) 1.5 % (0-1); EOSINOPHILS # (AUTO) 1.2 X10'3 (0-0.9); EOSINOPHILS % (AUTO) 15.4 % (0-6); LYMPHOCYTES # (AUTO) 0.9 X10'3 (1.1-4.8); LYMPHOCYTES % (AUTO) 11.9 % (21-51); MEAN CORPUSCULAR HEMOGLOBIN 28.5 PG (27.0-31.0); MEAN CORPUSCULAR HGB CONC 33.7 % (33.0-36.5); MEAN CORPUSCULAR VOLUME 84.6 FL (78-98); MEAN PLATELET VOLUME 8.7 FL (7.4-10.4); MONOCYTES # (AUTO) 0.7 X10'3 (0-0.9); MONOCYTES % (AUTO) 9.2 % (2-12); NEUTROPHILS # (AUTO) 4.7 X10'3 (1.8-7.7); PLATELET COUNT 109 X10'3 (140-440); RED CELL DISTRIBUTION WIDTH 19.8 % (11.5-14.5); WHITE BLOOD COUNT 7.7 X10'3 (4.5-11.0)
[2017-11-01 05:40] LABS: HEMATOCRIT 19.4 % (42.0-52.0); HEMOGLOBIN 6.5 g/dl (14.0-17.9)
[2017-11-01 06:29] LABS: ALANINE AMINOTRANSFERASE 21 U/L (12-78); ALBUMIN/GLOBULIN RATIO 0.2 (1.1-1.5); ALKALINE PHOSPHATASE 53 IU/L (46-116); ANION GAP 13 (8-16); ASPARTATE AMINO TRANSFERASE 25 U/L (10-37); BILIRUBIN,TOTAL 0.3 MG/DL (0.1-1.0); BLOOD UREA NITROGEN 68 MG/DL (7-18); BUN/CREATININE RATIO 11.3 (5.4-32.0); CALCIUM 8.2 MG/DL (8.5-10.1); CHLORIDE 102 MMOL/L (99-107); CREATININE 6.01 MG/DL (0.60-1.10); GLUCOSE 116 MG/DL (70-104); MAGNESIUM 1.8 MG/DL (1.5-2.4); POTASSIUM 3.3 MMOL/L (3.5-5.1); SODIUM 140 MMOL/L (135-145); TOTAL CARBON DIOXIDE 24.8 MMOL/L (24-32); TOTAL PROTEIN 5.3 G/DL (6.4-8.2); eGFR 9 ML/MIN
[2017-11-01] MEDS ORDERED: epoetin 20,000 units/ml inj IV ONE (08:00)
[2017-11-01] MEDS ORDERED: normal saline 1000ml 250 ML IV PRN (08:00)
[2017-11-01] MEDS: K and/or MAG REPLACEMENT MC SCH (08:00)
[2017-11-01] MEDS ORDERED: normal saline 1000ml 100 ML IV PRN (08:00)
[2017-11-01] MEDS ORDERED: heparin 1,000 units/ml 10ml inj HE ONE ×2 (08:00)
[2017-11-01] MEDS: normal saline 1000ml 1,000 ML IV SCH ×3 (08:54→20:00)
[2017-11-01] MEDS: fluconazole-Diflucan 200mg/NS 100 ML IV SCH (08:55)
[2017-11-01] MEDS: lactobacillus rhamnosus 10,000 MMU CELLS/CAPSULE PO SCH ×2 (08:56→20:02)
[2017-11-01] MEDS: tamsulosin 0.4mg capsule PO SCH (08:56)
[2017-11-01] MEDS: albumin (human) 25% 100 ML IV solution IV SCH ×2 (08:58→17:35)
[2017-11-01 09:55] LABS: PO2 MIXED VENOUS (TEMP COR) 37.6 mmHg (35-46)
[2017-11-01 10:06] LABS: INR 1.1 INR; PARTIAL THROMBOPLASTIN TIME 28 SECONDS (22-32); PROTHROMBIN TIME 11.6 SECONDS (9.0-12.0)
[2017-11-01] MEDS: FENTANYL-0.9 % NACL/PF 100 ML IV PRN ×2 (14:26→21:48)
[2017-11-01] MEDS: albuterol 2.5 MG/3 ML nebule NEB PRN (15:06)
[2017-11-01 16:39] LABS: HEMATOCRIT 22.8 % (42.0-52.0); HEMOGLOBIN 7.7 g/dl (14.0-17.9); MEAN CORPUSCULAR HEMOGLOBIN 28.7 PG (27.0-31.0); MEAN CORPUSCULAR HGB CONC 33.9 % (33.0-36.5); MEAN CORPUSCULAR VOLUME 84.7 FL (78-98); MEAN PLATELET VOLUME 7.8 FL (7.4-10.4); PLATELET COUNT 89 X10'3 (140-440); RED CELL DISTRIBUTION WIDTH 18.1 % (11.5-14.5); WHITE BLOOD COUNT 6.9 X10'3 (4.5-11.0)
[2017-11-02] VITALS (28 sets, daily range): BP systolic 122–183; BP diastolic 38–66
[2017-11-02] MEDS: albumin (human) 25% 100 ML IV solution IV SCH ×2 (00:33→07:42)
[2017-11-02] MEDS: mineral oil/petrolatum ophthal oint EACHEYE SCH ×4 (02:01→20:15)
[2017-11-02] MEDS: piperacillin-tazo 2.25gm/50ml 50 ML IV SCH ×4 (02:01→20:15)
[2017-11-02 02:37] LABS: BASOPHILS % (AUTO) 0.7 % (0-1); EOSINOPHILS # (AUTO) 0.9 X10'3 (0-0.9); EOSINOPHILS % (AUTO) 15.7 % (0-6); LYMPHOCYTES # (AUTO) 0.5 X10'3 (1.1-4.8); LYMPHOCYTES % (AUTO) 8.7 % (21-51); MEAN CORPUSCULAR HEMOGLOBIN 28.5 PG (27.0-31.0); MEAN CORPUSCULAR HGB CONC 33.6 % (33.0-36.5); MEAN PLATELET VOLUME 7.5 FL (7.4-10.4); MONOCYTES # (AUTO) 0.5 X10'3 (0-0.9); MONOCYTES % (AUTO) 8.4 % (2-12); NEUTROPHILS # (AUTO) 3.8 X10'3 (1.8-7.7); NEUTROPHILS % (AUTO) 66.5 % (42-75); PLATELET COUNT 69 X10'3 (140-440); RED BLOOD COUNT 2.31 X10'6 (4.70-6.10); WHITE BLOOD COUNT 5.8 X10'3 (4.5-11.0)
[2017-11-02 02:53] LABS: ALANINE AMINOTRANSFERASE 18 U/L (12-78); ALBUMIN 2.4 G/DL (3.4-5.0); ALBUMIN/GLOBULIN RATIO 0.8 (1.1-1.5); ANION GAP 14 (8-16); ASPARTATE AMINO TRANSFERASE 11 U/L (10-37); BILIRUBIN,TOTAL 0.4 MG/DL (0.1-1.0); BLOOD UREA NITROGEN 43 MG/DL (7-18); BUN/CREATININE RATIO 9.1 (5.4-32.0); CALCIUM 7.8 MG/DL (8.5-10.1); CHLORIDE 103 MMOL/L (99-107); CREATININE 4.74 MG/DL (0.60-1.10); GLUCOSE 83 MG/DL (70-104); MAGNESIUM 1.8 MG/DL (1.5-2.4); POTASSIUM 3.1 MMOL/L (3.5-5.1); SODIUM 142 MMOL/L (135-145); TOTAL PROTEIN 5.4 G/DL (6.4-8.2); eGFR 12 ML/MIN
[2017-11-02 02:54] LABS: ALKALINE PHOSPHATASE 36 IU/L (46-116)
[2017-11-02 03:02] LABS: HEMATOCRIT 19.6 % (42.0-52.0); HEMOGLOBIN 6.6 g/dl (14.0-17.9)
[2017-11-02 03:11] LABS: ABG BASE EXCESS -1.6 mmol/L (-2.0-3.0); ABG HCO3 23.1 mmol/L (22.0-26.0); ABG OXYGEN SATURATION 97.2 % (95-98); ABG PH (T) 7.409 (7.350-7.450); ABG PO2 (T) 102.7 mmHg (83-108); FCOHb 0.1 % (0.5-1.5); FMetHb 0.4 % (0.3-1.12); FO2Hb 96.7 % (94-100); MINUTE VOLUME 8 L/min; PATIENT TEMPERATURE 36.3; PEEP 5 cm H2O; RESPIRATORY RATE 12 b/min; RESPIRATORY RATE (OBSERVED) 13 b/min; TIDAL VOLUME 600 mL; TOTAL HEMOGLOBIN 7.6 G/dl (14.0-18.0)
[2017-11-02 03:16] LABS: OXYGEN SATURATION (MIXED VEN) 67.6 % (60-80); PO2 MIXED VENOUS (TEMP COR) 36.5 mmHg (35-46)
[2017-11-02] MEDS: ipratropium/albuterol 3ml nebule NEB SCH ×4 (03:44→20:50)
[2017-11-02] MEDS: pantoprazole 40MG/NS 100ML BAG 100 ML IV SCH ×6 (03:59→23:27)
[2017-11-02] MEDS: amiodarone/D5 360MG/200ML BAG 200 ML IV SCH ×5 (07:08→22:58)
[2017-11-02] MEDS ORDERED: [UNRECOGNIZED DRUG - OTHER] IV ONE (07:40)
[2017-11-02] MEDS ORDERED: POTASSIUM CL IV ONE (07:40)
[2017-11-02] MEDS: tamsulosin 0.4mg capsule PO SCH (07:49)
[2017-11-02] MEDS: lactobacillus rhamnosus 10,000 MMU CELLS/CAPSULE PO SCH ×2 (07:50→20:15)
[2017-11-02] MEDS: K and/or MAG REPLACEMENT MC SCH (07:50)
[2017-11-02] MEDS: potassium Cl oral solution 20 MEQ/15 ML PO PRN ×3 (07:58→16:02)
[2017-11-02] MEDS: fluconazole-Diflucan 200mg/NS 100 ML IV SCH (07:59)
[2017-11-02] MEDS ORDERED: methylnaltrexone br 12mg/0.6ml inj***SubQ only SQ SCH (08:00)
[2017-11-02 09:10] LABS: HEMATOCRIT 23.3 % (42.0-52.0); HEMOGLOBIN 7.8 g/dl (14.0-17.9); MEAN CORPUSCULAR HEMOGLOBIN 29.1 PG (27.0-31.0); MEAN CORPUSCULAR HGB CONC 33.6 % (33.0-36.5); MEAN CORPUSCULAR VOLUME 86.6 FL (78-98); MEAN PLATELET VOLUME 7.7 FL (7.4-10.4); PLATELET COUNT 72 X10'3 (140-440); RED BLOOD COUNT 2.69 X10'6 (4.70-6.10); RED CELL DISTRIBUTION WIDTH 19.3 % (11.5-14.5); WHITE BLOOD COUNT 6.5 X10'3 (4.5-11.0)
[2017-11-02] MEDS ORDERED: metoclopramide 5 mg/ml inj IV PRN (11:10)
[2017-11-02 11:45] LABS: OXYGEN SATURATION (MIXED VEN) 70.5 % (60-80); PO2 MIXED VENOUS (TEMP COR) 39.6 mmHg (35-46)
[2017-11-02] MEDS: normal saline 1000ml 1,000 ML IV SCH ×2 (12:40→17:42)
[2017-11-02] MEDS: FENTANYL-0.9 % NACL/PF 100 ML IV PRN (16:03)
[2017-11-02] MEDS: metoclopramide 5 mg/ml inj IV SCH (20:14)
[2017-11-03] VITALS (23 sets, daily range): BP systolic 98–169; BP diastolic 48–71
[2017-11-03 01:05] LABS: HEMOGLOBIN 10.8 g/dl (14.0-17.9); MEAN CORPUSCULAR HEMOGLOBIN 29.7 PG (27.0-31.0); MEAN CORPUSCULAR HGB CONC 33.7 % (33.0-36.5); MEAN CORPUSCULAR VOLUME 88.3 FL (78-98); MEAN PLATELET VOLUME 8.5 FL (7.4-10.4); PLATELET COUNT 98 X10'3 (140-440); RED BLOOD COUNT 3.62 X10'6 (4.70-6.10); RED CELL DISTRIBUTION WIDTH 17.6 % (11.5-14.5); WHITE BLOOD COUNT 10.3 X10'3 (4.5-11.0)
[2017-11-03] MEDS: mineral oil/petrolatum ophthal oint EACHEYE SCH ×4 (02:11→20:55)
[2017-11-03] MEDS: piperacillin-tazo 2.25gm/50ml 50 ML IV SCH ×4 (02:11→20:53)
[2017-11-03] MEDS: metoclopramide 5 mg/ml inj IV SCH ×4 (02:11→20:54)
[2017-11-03] MEDS: ipratropium/albuterol 3ml nebule NEB SCH ×4 (03:09→20:31)
[2017-11-03 03:56] LABS: ABG BASE EXCESS -6.2 mmol/L (-2.0-3.0); ABG HCO3 17.5 mmol/L (22.0-26.0); ABG OXYGEN SATURATION 92.6 % (95-98); ABG PH (T) 7.386 (7.350-7.450); ABG PO2 (T) 73.1 mmHg (83-108); FCOHb 0.3 % (0.5-1.5); FMetHb 0.1 % (0.3-1.12); FO2Hb 92.2 % (94-100); MINUTE VOLUME 12 L/min; PATIENT TEMPERATURE 37.8; PEEP 5 cm H2O; RESPIRATORY RATE 12 b/min; RESPIRATORY RATE (OBSERVED) 21 b/min; TIDAL VOLUME 500 mL; TOTAL HEMOGLOBIN 11.7 G/dl (14.0-18.0)
[2017-11-03 04:00] LABS: OXYGEN SATURATION (MIXED VEN) 65.9 % (60-80); PO2 MIXED VENOUS (TEMP COR) 35.8 mmHg (35-46)
[2017-11-03 04:14] LABS: BASOPHILS % (AUTO) 0.2 % (0-1); EOSINOPHILS # (AUTO) 1.3 X10'3 (0-0.9); EOSINOPHILS % (AUTO) 13.1 % (0-6); HEMATOCRIT 32.5 % (42.0-52.0); HEMOGLOBIN 10.9 g/dl (14.0-17.9); LYMPHOCYTES # (AUTO) 0.6 X10'3 (1.1-4.8); LYMPHOCYTES % (AUTO) 5.7 % (21-51); MEAN CORPUSCULAR HEMOGLOBIN 29.3 PG (27.0-31.0); MEAN CORPUSCULAR HGB CONC 33.6 % (33.0-36.5); MEAN CORPUSCULAR VOLUME 87.3 FL (78-98); MEAN PLATELET VOLUME 7.9 FL (7.4-10.4); MONOCYTES # (AUTO) 0.5 X10'3 (0-0.9); MONOCYTES % (AUTO) 5.2 % (2-12); NEUTROPHILS # (AUTO) 7.8 X10'3 (1.8-7.7); NEUTROPHILS % (AUTO) 75.8 % (42-75); PLATELET COUNT 92 X10'3 (140-440); RED BLOOD COUNT 3.72 X10'6 (4.70-6.10); RED CELL DISTRIBUTION WIDTH 19.3 % (11.5-14.5); WHITE BLOOD COUNT 10.3 X10'3 (4.5-11.0)
[2017-11-03 04:31] LABS: ALANINE AMINOTRANSFERASE 12 U/L (12-78); ALBUMIN 2.2 G/DL (3.4-5.0); ALBUMIN/GLOBULIN RATIO 0.7 (1.1-1.5); ALKALINE PHOSPHATASE 48 IU/L (46-116); ANION GAP 17 (8-16); ASPARTATE AMINO TRANSFERASE 11 U/L (10-37); BILIRUBIN,TOTAL 0.6 MG/DL (0.1-1.0); BLOOD UREA NITROGEN 46 MG/DL (7-18); BUN/CREATININE RATIO 8.5 (5.4-32.0); CALCIUM 7.8 MG/DL (8.5-10.1); CHLORIDE 105 MMOL/L (99-107); CREATININE 5.42 MG/DL (0.60-1.10); GLUCOSE 138 MG/DL (70-104); MAGNESIUM 1.6 MG/DL (1.5-2.4); POTASSIUM 3.3 MMOL/L (3.5-5.1); PREALBUMIN 11.4 MG/DL (19-36); SODIUM 142 MMOL/L (135-145); TOTAL CARBON DIOXIDE 20.5 MMOL/L (24-32); TOTAL PROTEIN 5.5 G/DL (6.4-8.2); eGFR 10 ML/MIN
[2017-11-03] MEDS: pantoprazole 40MG/NS 100ML BAG 100 ML IV SCH ×4 (05:07→18:32)
[2017-11-03] MEDS: normal saline 1000ml 1,000 ML IV SCH ×2 (05:07→18:40)
[2017-11-03] MEDS: FENTANYL-0.9 % NACL/PF 100 ML IV PRN (05:29)
[2017-11-03] MEDS: amiodarone/D5 360MG/200ML BAG 200 ML IV SCH ×4 (07:24→21:21)
[2017-11-03] MEDS: tamsulosin 0.4mg capsule PO SCH (08:00)
[2017-11-03] MEDS: lactobacillus rhamnosus 10,000 MMU CELLS/CAPSULE PO SCH ×2 (08:16→20:53)
[2017-11-03] MEDS: fluconazole-Diflucan 200mg/NS 100 ML IV SCH (08:16)
[2017-11-03] MEDS: potassium Cl oral solution 20 MEQ/15 ML PO PRN ×3 (08:16→15:47)
[2017-11-03] MEDS ORDERED: normal saline 1000ml 250 ML IV PRN (09:00)
[2017-11-03] MEDS ORDERED: normal saline 1000ml 100 ML IV PRN (09:00)
[2017-11-03] MEDS ORDERED: heparin 1,000 units/ml 10ml inj HE ONE ×2 (09:05)
[2017-11-03] MEDS ORDERED: acetaminophen 325mg/10.15ml oral unit dose solution PO PRN (10:09)
[2017-11-03] MEDS: acetaminophen 325mg/10.15ml oral unit dose solution PO PRN ×2 (10:22→18:32)
[2017-11-03] MEDS: linezolid 600mg/300ml PREMIX 300 ML IV SCH ×2 (14:06→20:53)
[2017-11-03] MEDS: morphine/NS 100mg/100ml bag 100 ML IV PRN (14:10)
[2017-11-03] MEDS: diatr meglu/diatrizoate 30ml oral sol.-(3 dose) bottle PO SCH ×3 (14:24→19:48)
[2017-11-03] MEDS: micafungin inj 100 MG in normal saline 100ml IV soln 100 ML IV SCH (16:06)
[2017-11-04] VITALS (24 sets, daily range): BP systolic 91–138; BP diastolic 44–71
[2017-11-04] MEDS: metoclopramide 5 mg/ml inj IV SCH ×4 (01:02→20:04)
[2017-11-04] MEDS: mineral oil/petrolatum ophthal oint EACHEYE SCH ×4 (01:03→20:00)
[2017-11-04] MEDS: piperacillin-tazo 2.25gm/50ml 50 ML IV SCH ×2 (01:03→08:36)
[2017-11-04] MEDS: pantoprazole 40MG/NS 100ML BAG 100 ML IV SCH ×3 (01:53→08:45)
[2017-11-04] MEDS: ipratropium/albuterol 3ml nebule NEB SCH ×4 (03:08→21:43)
[2017-11-04 04:06] LABS: BASOPHILS % (AUTO) 0.1 % (0-1); EOSINOPHILS # (AUTO) 1.4 X10'3 (0-0.9); EOSINOPHILS % (AUTO) 9.3 % (0-6); HEMATOCRIT 31.8 % (42.0-52.0); HEMOGLOBIN 10.6 g/dl (14.0-17.9); LYMPHOCYTES # (AUTO) 0.7 X10'3 (1.1-4.8); LYMPHOCYTES % (AUTO) 4.9 % (21-51); MEAN CORPUSCULAR HEMOGLOBIN 29.4 PG (27.0-31.0); MEAN CORPUSCULAR HGB CONC 33.4 % (33.0-36.5); MEAN CORPUSCULAR VOLUME 88.2 FL (78-98); MEAN PLATELET VOLUME 9.1 FL (7.4-10.4); MONOCYTES # (AUTO) 0.7 X10'3 (0-0.9); MONOCYTES % (AUTO) 4.8 % (2-12); NEUTROPHILS # (AUTO) 12.1 X10'3 (1.8-7.7); NEUTROPHILS % (AUTO) 80.9 % (42-75); PLATELET COUNT 93 X10'3 (140-440); RED BLOOD COUNT 3.61 X10'6 (4.70-6.10); RED CELL DISTRIBUTION WIDTH 19.1 % (11.5-14.5)
[2017-11-04 04:11] LABS: ABG BASE EXCESS -4.4 mmol/L (-2.0-3.0); ABG HCO3 19.6 mmol/L (22.0-26.0); ABG OXYGEN SATURATION 93.5 % (95-98); ABG PH (T) 7.393 (7.350-7.450); ABG PO2 (T) 71.8 mmHg (83-108); ALLEN'S TEST Positive; FCOHb 0.2 % (0.5-1.5); FMetHb 0.2 % (0.3-1.12); FO2Hb 93.1 % (94-100); MINUTE VOLUME 11 L/min; PATIENT TEMPERATURE 37.4; PEEP 5 cm H2O; RESPIRATORY RATE 12 b/min; RESPIRATORY RATE (OBSERVED) 20 b/min; TIDAL VOLUME 500 mL; TOTAL HEMOGLOBIN 11.5 G/dl (14.0-18.0)
[2017-11-04] MEDS: normal saline 1000ml 1,000 ML IV SCH (04:19)
[2017-11-04 04:21] LABS: ANION GAP 13 (8-16); BLOOD UREA NITROGEN 38 MG/DL (7-18); BUN/CREATININE RATIO 7.2 (5.4-32.0); CHLORIDE 104 MMOL/L (99-107); GLUCOSE 123 MG/DL (70-104); POTASSIUM 3.5 MMOL/L (3.5-5.1); SODIUM 139 MMOL/L (135-145); TOTAL CARBON DIOXIDE 21.7 MMOL/L (24-32); eGFR 10 ML/MIN
[2017-11-04 04:22] LABS: ALANINE AMINOTRANSFERASE 14 U/L (12-78); ALBUMIN 1.6 G/DL (3.4-5.0); ALBUMIN/GLOBULIN RATIO 0.5 (1.1-1.5); ALKALINE PHOSPHATASE 43 IU/L (46-116); ASPARTATE AMINO TRANSFERASE 21 U/L (10-37); BILIRUBIN,TOTAL 0.5 MG/DL (0.1-1.0); TOTAL PROTEIN 5.1 G/DL (6.4-8.2)
[2017-11-04] MEDS: tamsulosin 0.4mg capsule PO SCH (08:00)
[2017-11-04] MEDS: amiodarone/D5 360MG/200ML BAG 200 ML IV SCH ×3 (08:28→21:16)
[2017-11-04] MEDS: linezolid 600mg/300ml PREMIX 300 ML IV SCH (08:38)
[2017-11-04] MEDS: lactobacillus rhamnosus 10,000 MMU CELLS/CAPSULE PO SCH ×2 (09:02→20:04)
[2017-11-04] MEDS: micafungin inj 100 MG in normal saline 100ml IV soln 100 ML IV SCH (09:03)
[2017-11-04 11:11] LABS: C DIFF ANTIGEN NEGATIVE (NEGATIVE); C DIFF SPECIMEN=DIARRHEA? ACCEPTABLE; C DIFFICILE TOXINS A&B NEGATIVE (Neg)
[2017-11-04 11:17] LABS: HBSAG SCREEN Negative (Negative)
[2017-11-04] MEDS: pyridostigmine br 60mg tablet PO SCH ×3 (13:00→20:04)
[2017-11-04] MEDS: morphine/NS 100mg/100ml bag 100 ML IV PRN (16:22)
[2017-11-04 16:45] LABS: MAGNESIUM 1.4 MG/DL (1.5-2.4); POTASSIUM 3.4 MMOL/L (3.5-5.1)
[2017-11-04] MEDS: potassium Cl oral solution 20 MEQ/15 ML PO PRN (16:54)
[2017-11-04] MEDS: magnesium 1gm/100ml D5W IVPB 100 ML IV PRN (17:01)
[2017-11-04] MEDS: pantoprazole 40 MG vial IV SCH (20:04)
[2017-11-04] MEDS: heparin, porcine 5000 units/ml vial SQ SCH (20:05)
[2017-11-05] VITALS (23 sets, daily range): BP systolic 92–147; BP diastolic 45–81
[2017-11-05] MEDS: amiodarone/D5 360MG/200ML BAG 200 ML IV SCH ×4 (01:52→20:04)
[2017-11-05] MEDS: metoclopramide 5 mg/ml inj IV SCH ×4 (02:04→20:46)
[2017-11-05] MEDS: mineral oil/petrolatum ophthal oint EACHEYE SCH ×4 (02:08→20:57)
[2017-11-05] MEDS: ipratropium/albuterol 3ml nebule NEB SCH ×4 (03:05→20:41)
[2017-11-05 05:09] LABS: BASOPHILS % (AUTO) 0.2 % (0-1); EOSINOPHILS # (AUTO) 1.9 X10'3 (0-0.9); EOSINOPHILS % (AUTO) 11.7 % (0-6); HEMATOCRIT 30.1 % (42.0-52.0); HEMOGLOBIN 10.3 g/dl (14.0-17.9); LYMPHOCYTES # (AUTO) 1.1 X10'3 (1.1-4.8); LYMPHOCYTES % (AUTO) 6.7 % (21-51); MEAN CORPUSCULAR HEMOGLOBIN 30.1 PG (27.0-31.0); MEAN CORPUSCULAR HGB CONC 34.4 % (33.0-36.5); MEAN CORPUSCULAR VOLUME 87.6 FL (78-98); MONOCYTES # (AUTO) 0.8 X10'3 (0-0.9); MONOCYTES % (AUTO) 4.8 % (2-12); NEUTROPHILS # (AUTO) 12.5 X10'3 (1.8-7.7); NEUTROPHILS % (AUTO) 76.6 % (42-75); PLATELET COUNT 110 X10'3 (140-440); RED BLOOD COUNT 3.43 X10'6 (4.70-6.10); RED CELL DISTRIBUTION WIDTH 19.5 % (11.5-14.5); WHITE BLOOD COUNT 16.3 X10'3 (4.5-11.0)
[2017-11-05 05:19] LABS: ALBUMIN 1.4 G/DL (3.4-5.0); ANION GAP 13 (8-16); BLOOD UREA NITROGEN 48 MG/DL (7-18); BUN/CREATININE RATIO 7.7 (5.4-32.0); CALCIUM 7.8 MG/DL (8.5-10.1); CHLORIDE 103 MMOL/L (99-107); GLUCOSE 115 MG/DL (70-104); MAGNESIUM 1.7 MG/DL (1.5-2.4); POTASSIUM 3.6 MMOL/L (3.5-5.1); SODIUM 136 MMOL/L (135-145); TOTAL CARBON DIOXIDE 20.1 MMOL/L (24-32); eGFR 9 ML/MIN
[2017-11-05 05:21] LABS: ABG BASE EXCESS -6.8 mmol/L (-2.0-3.0); ABG HCO3 18.2 mmol/L (22.0-26.0); ABG OXYGEN SATURATION 94.2 % (95-98); ABG PCO2 (T) 35.6 mmHg (35.0-48.0); ABG PH (T) 7.329 (7.350-7.450); ALLEN'S TEST Positive; FCOHb 0.1 % (0.5-1.5); FMetHb 0.2 % (0.3-1.12); FO2Hb 93.9 % (94-100); MINUTE VOLUME 10 L/min; PATIENT TEMPERATURE 37.6; PEEP 5 cm H2O; RESPIRATORY RATE (OBSERVED) 14 b/min; TOTAL HEMOGLOBIN 11.1 G/dl (14.0-18.0)
[2017-11-05] MEDS: pantoprazole 40 MG vial IV SCH ×2 (08:32→20:46)
[2017-11-05] MEDS: lactobacillus rhamnosus 10,000 MMU CELLS/CAPSULE PO SCH ×2 (08:32→20:45)
[2017-11-05] MEDS: tamsulosin 0.4mg capsule PO SCH (08:33)
[2017-11-05] MEDS: heparin, porcine 5000 units/ml vial SQ SCH ×2 (08:33→20:46)
[2017-11-05] MEDS: micafungin inj 100 MG in normal saline 100ml IV soln 100 ML IV SCH (08:33)
[2017-11-05] MEDS: pyridostigmine br 60mg tablet PO SCH ×4 (08:46→20:45)
[2017-11-05] MEDS ORDERED: normal saline 1000ml 250 ML IV PRN (10:28)
[2017-11-05] MEDS ORDERED: epoetin 20,000 units/ml inj IV ONE (10:30)
[2017-11-05] MEDS ORDERED: heparin 1,000 units/ml 10ml inj HE ONE ×2 (10:35)
[2017-11-05] MEDS ORDERED: albumin (human) 25% 100 ML IV solution IV ONE (10:45)
[2017-11-05] MEDS ORDERED: albumin (Human) 5% 250ml 250 ML IV ONE (11:54)
[2017-11-05] MEDS: amiodarone 200mg tablet PO SCH ×2 (12:41→20:53)
[2017-11-05 13:22] LABS: INR 1.2 INR; PROTHROMBIN TIME 12.7 SECONDS (9.0-12.0)
[2017-11-05] MEDS: morphine/NS 100mg/100ml bag 100 ML IV PRN (18:56)
[2017-11-05] MEDS: furosemide 10 MG/1 ML 10ml inj IV SCH (19:02)
[2017-11-06] VITALS (24 sets, daily range): BP systolic 107–157; BP diastolic 50–79
[2017-11-06] MEDS: furosemide 10 MG/1 ML 10ml inj IV SCH ×4 (00:34→23:56)
[2017-11-06] MEDS: amiodarone/D5 360MG/200ML BAG 200 ML IV SCH ×2 (02:08→08:12)
[2017-11-06] MEDS: metoclopramide 5 mg/ml inj IV SCH ×4 (02:14→20:31)
[2017-11-06] MEDS: mineral oil/petrolatum ophthal oint EACHEYE SCH ×4 (02:16→20:32)
[2017-11-06] MEDS: ipratropium/albuterol 3ml nebule NEB SCH ×4 (03:23→21:10)
[2017-11-06 03:56] LABS: ABG BASE EXCESS -1.8 mmol/L (-2.0-3.0); ABG HCO3 22.3 mmol/L (22.0-26.0); ABG OXYGEN SATURATION 93.6 % (95-98); ABG PCO2 (T) 35.4 mmHg (35.0-48.0); ABG PH (T) 7.417 (7.350-7.450); ABG PO2 (T) 69.5 mmHg (83-108); ALLEN'S TEST Positive; FMetHb 0.3 % (0.3-1.12); FO2Hb 93.3 % (94-100); MINUTE VOLUME 12 L/min; PATIENT TEMPERATURE 37.2; PEEP 5 cm H2O; RESPIRATORY RATE 6 b/min; RESPIRATORY RATE (OBSERVED) 14 b/min; TIDAL VOLUME 800 mL; TOTAL HEMOGLOBIN 10.9 G/dl (14.0-18.0)
[2017-11-06 06:39] LABS: PREALBUMIN 9.4 MG/DL (19-36)
[2017-11-06 07:03] LABS: BASOPHILS # (AUTO) 0.1 X10'3 (0-0.2); BASOPHILS % (AUTO) 0.4 % (0-1); EOSINOPHILS # (AUTO) 1.5 X10'3 (0-0.9); EOSINOPHILS % (AUTO) 10.7 % (0-6); HEMOGLOBIN 9.7 g/dl (14.0-17.9); LYMPHOCYTES # (AUTO) 1.7 X10'3 (1.1-4.8); LYMPHOCYTES % (AUTO) 12.3 % (21-51); MEAN CORPUSCULAR HGB CONC 33.5 % (33.0-36.5); MEAN CORPUSCULAR VOLUME 86.6 FL (78-98); MONOCYTES # (AUTO) 0.6 X10'3 (0-0.9); NEUTROPHILS % (AUTO) 72.6 % (42-75); PLATELET COUNT 124 X10'3 (140-440); RED BLOOD COUNT 3.36 X10'6 (4.70-6.10); RED CELL DISTRIBUTION WIDTH 19.5 % (11.5-14.5); WHITE BLOOD COUNT 13.8 X10'3 (4.5-11.0)
[2017-11-06 07:10] LABS: ANION GAP 12 (8-16); BLOOD UREA NITROGEN 30 MG/DL (7-18); BUN/CREATININE RATIO 6.3 (5.4-32.0); CALCIUM 8.1 MG/DL (8.5-10.1); CHLORIDE 102 MMOL/L (99-107); CREATININE 4.78 MG/DL (0.60-1.10); GLUCOSE 111 MG/DL (70-104); POTASSIUM 3.3 MMOL/L (3.5-5.1); SODIUM 136 MMOL/L (135-145); TOTAL CARBON DIOXIDE 22.4 MMOL/L (24-32); eGFR 12 ML/MIN
[2017-11-06 07:11] LABS: ALANINE AMINOTRANSFERASE 13 U/L (12-78); ALBUMIN 1.8 G/DL (3.4-5.0); ALBUMIN/GLOBULIN RATIO 0.5 (1.1-1.5); ALKALINE PHOSPHATASE 58 IU/L (46-116); ASPARTATE AMINO TRANSFERASE 11 U/L (10-37); BILIRUBIN,TOTAL 0.3 MG/DL (0.1-1.0); TOTAL PROTEIN 5.5 G/DL (6.4-8.2)
[2017-11-06 07:17] LABS: ANISOCYTOSIS 2+; BANDS% (MANUAL) 5 % (0-10); EOSINOPHILS % (MANUAL) 10 % (0-6); LYMPHOCYTES % (MANUAL) 10 % (21-51); MONOCYTES % (MANUAL) 2 % (2-12); NEUTROPHILS % (MANUAL) 68 % (42-75); PLATELET ESTIMATE DECREASED; TOTAL CELLS COUNTED 100
[2017-11-06 07:18] LABS: METAMYLEOCYTES% (MANUAL) 5 % (0-0)
[2017-11-06] MEDS: pantoprazole 40 MG vial IV SCH ×2 (07:51→20:31)
[2017-11-06] MEDS: tamsulosin 0.4mg capsule PO SCH (07:56)
[2017-11-06] MEDS: lactobacillus rhamnosus 10,000 MMU CELLS/CAPSULE PO SCH ×2 (07:56→20:31)
[2017-11-06] MEDS: amiodarone 200mg tablet PO SCH ×2 (07:56→20:33)
[2017-11-06] MEDS: heparin, porcine 5000 units/ml vial SQ SCH ×2 (07:56→20:33)
[2017-11-06] MEDS: pyridostigmine br 60mg tablet PO SCH ×4 (07:56→21:37)
[2017-11-06] MEDS: potassium Cl oral solution 20 MEQ/15 ML PO PRN (07:57)
[2017-11-06] MEDS: micafungin inj 100 MG in normal saline 100ml IV soln 100 ML IV SCH (08:12)
[2017-11-06] MEDS ORDERED: normal saline 1000ml 250 ML IV PRN (09:18)
[2017-11-06] MEDS ORDERED: heparin 1,000unit/ml 10ml vial 10 ML IV ONE (09:18)
[2017-11-06] MEDS ORDERED: heparin 1,000 units/ml 10ml inj HE ONE ×2 (09:25)
[2017-11-06 10:16] LABS: MAGNESIUM 1.6 MG/DL (1.5-2.4); PHOSPHORUS 3.1 MG/DL (2.3-4.5)
[2017-11-06] MEDS ORDERED: methylPREDNISolone sod succ 125mg/2ml vial IV ONE (14:15)
[2017-11-06] MEDS ORDERED: diphenhydrAMINE 50 mg/ml inj IV ONE (14:15)
[2017-11-06] MEDS ORDERED: furosemide 10 MG/1 ML 10ml inj IV SCH (18:00)
[2017-11-07] VITALS (23 sets, daily range): BP systolic 100–167; BP diastolic 43–83
[2017-11-07] MEDS: mineral oil/petrolatum ophthal oint EACHEYE SCH ×4 (02:00→21:30)
[2017-11-07] MEDS: ipratropium/albuterol 3ml nebule NEB SCH ×4 (03:00→20:55)
[2017-11-07 03:18] LABS: BASOPHILS % (AUTO) 0.2 % (0-1); EOSINOPHILS # (AUTO) 0.2 X10'3 (0-0.9); EOSINOPHILS % (AUTO) 1.6 % (0-6); HEMATOCRIT 30.4 % (42.0-52.0); HEMOGLOBIN 10.3 g/dl (14.0-17.9); LYMPHOCYTES # (AUTO) 1.4 X10'3 (1.1-4.8); MEAN CORPUSCULAR HEMOGLOBIN 29.3 PG (27.0-31.0); MEAN CORPUSCULAR HGB CONC 33.8 % (33.0-36.5); MEAN CORPUSCULAR VOLUME 86.8 FL (78-98); MEAN PLATELET VOLUME 8.7 FL (7.4-10.4); MONOCYTES # (AUTO) 0.5 X10'3 (0-0.9); MONOCYTES % (AUTO) 3.5 % (2-12); NEUTROPHILS # (AUTO) 11.7 X10'3 (1.8-7.7); NEUTROPHILS % (AUTO) 84.7 % (42-75); PLATELET COUNT 159 X10'3 (140-440); RED CELL DISTRIBUTION WIDTH 19.5 % (11.5-14.5); WHITE BLOOD COUNT 13.8 X10'3 (4.5-11.0)
[2017-11-07 03:36] LABS: ALANINE AMINOTRANSFERASE 11 U/L (12-78); ALBUMIN 1.9 G/DL (3.4-5.0); ALBUMIN/GLOBULIN RATIO 0.4 (1.1-1.5); ALKALINE PHOSPHATASE 59 IU/L (46-116); ANION GAP 7 (8-16); ASPARTATE AMINO TRANSFERASE 11 U/L (10-37); BILIRUBIN,TOTAL 0.3 MG/DL (0.1-1.0); BLOOD UREA NITROGEN 32 MG/DL (7-18); BUN/CREATININE RATIO 8.4 (5.4-32.0); CALCIUM 8.1 MG/DL (8.5-10.1); CHLORIDE 102 MMOL/L (99-107); GLUCOSE 144 MG/DL (70-104); SODIUM 136 MMOL/L (135-145); TOTAL CARBON DIOXIDE 26.6 MMOL/L (24-32); TOTAL PROTEIN 6.2 G/DL (6.4-8.2); eGFR 15 ML/MIN
[2017-11-07] MEDS: metoclopramide 5 mg/ml inj IV SCH ×4 (03:46→21:30)
[2017-11-07 05:10] LABS: ABG BASE EXCESS -3.7 mmol/L (-2.0-3.0); ABG HCO3 19.2 mmol/L (22.0-26.0); ABG OXYGEN SATURATION 93.8 % (95-98); ABG PCO2 (T) 27.9 mmHg (35.0-48.0); ABG PH (T) 7.454 (7.350-7.450); ABG PO2 (T) 70.8 mmHg (83-108); ALLEN'S TEST Positive; FMetHb 0.2 % (0.3-1.12); FO2Hb 93.6 % (94-100); MINUTE VOLUME 12 L/min; PATIENT TEMPERATURE 36.7; PEEP 5 cm H2O; RESPIRATORY RATE (OBSERVED) 17 b/min; TOTAL HEMOGLOBIN 11.4 G/dl (14.0-18.0)
[2017-11-07 07:09] LABS: MAGNESIUM 1.5 MG/DL (1.5-2.4); PHOSPHORUS 2.6 MG/DL (2.3-4.5)
[2017-11-07] MEDS: pantoprazole 40 MG vial IV SCH ×2 (07:47→21:30)
[2017-11-07] MEDS: pyridostigmine br 60mg tablet PO SCH ×4 (07:48→21:59)
[2017-11-07] MEDS: amiodarone 200mg tablet PO SCH ×2 (07:48→21:30)
[2017-11-07] MEDS: lactobacillus rhamnosus 10,000 MMU CELLS/CAPSULE PO SCH ×2 (07:48→21:30)
[2017-11-07] MEDS: furosemide 10 MG/1 ML 10ml inj IV SCH ×3 (07:48→23:51)
[2017-11-07] MEDS: tamsulosin 0.4mg capsule PO SCH (07:48)
[2017-11-07] MEDS: micafungin inj 100 MG in normal saline 100ml IV soln 100 ML IV SCH (07:49)
[2017-11-07] MEDS: heparin, porcine 5000 units/ml vial SQ SCH ×2 (07:50→21:45)
[2017-11-07] MEDS ORDERED: normal saline 1000ml 250 ML IV PRN (09:33)
[2017-11-07] MEDS ORDERED: heparin 1,000unit/ml 10ml vial 10 ML IV ONE (09:33)
[2017-11-07] MEDS ORDERED: epoetin 20,000 units/ml inj IV ONE (09:35)
[2017-11-07] MEDS ORDERED: heparin 1,000 units/ml 10ml inj HE ONE ×2 (09:40)
[2017-11-07] MEDS ORDERED: methylPREDNISolone sod succ 125mg/2ml vial IV ONE (10:55)
[2017-11-07] MEDS ORDERED: albumin (human) 25% 100 ML IV solution IV ONE (10:55)
[2017-11-07] MEDS ORDERED: diphenhydrAMINE 50 mg/ml inj IV ONE (10:55)
[2017-11-08] VITALS (22 sets, daily range): BP systolic 107–159; BP diastolic 49–75
[2017-11-08] MEDS: mineral oil/petrolatum ophthal oint EACHEYE SCH (01:25)
[2017-11-08] MEDS: metoclopramide 5 mg/ml inj IV SCH ×4 (01:25→20:37)
[2017-11-08 02:36] LABS: ALANINE AMINOTRANSFERASE 18 U/L (12-78); ALBUMIN 2.4 G/DL (3.4-5.0); ALBUMIN/GLOBULIN RATIO 0.6 (1.1-1.5); ALKALINE PHOSPHATASE 50 IU/L (46-116); ANION GAP 5 (8-16); ASPARTATE AMINO TRANSFERASE 12 U/L (10-37); BILIRUBIN,TOTAL 0.3 MG/DL (0.1-1.0); BLOOD UREA NITROGEN 25 MG/DL (7-18); BUN/CREATININE RATIO 8.6 (5.4-32.0); CALCIUM 8.7 MG/DL (8.5-10.1); CHLORIDE 102 MMOL/L (99-107); CREATININE 2.92 MG/DL (0.60-1.10); GLUCOSE 99 MG/DL (70-104); POTASSIUM 3.6 MMOL/L (3.5-5.1); SODIUM 136 MMOL/L (135-145); TOTAL PROTEIN 6.3 G/DL (6.4-8.2); eGFR 21 ML/MIN
[2017-11-08 02:46] LABS: BASOPHILS % (AUTO) 0.2 % (0-1); EOSINOPHILS # (AUTO) 0.2 X10'3 (0-0.9); EOSINOPHILS % (AUTO) 1.3 % (0-6); HEMOGLOBIN 9.6 g/dl (14.0-17.9); LYMPHOCYTES # (AUTO) 2.2 X10'3 (1.1-4.8); LYMPHOCYTES % (AUTO) 15.5 % (21-51); MEAN CORPUSCULAR HEMOGLOBIN 29.2 PG (27.0-31.0); MEAN CORPUSCULAR HGB CONC 33.2 % (33.0-36.5); MEAN CORPUSCULAR VOLUME 87.9 FL (78-98); MEAN PLATELET VOLUME 7.9 FL (7.4-10.4); MONOCYTES # (AUTO) 1.2 X10'3 (0-0.9); MONOCYTES % (AUTO) 8.8 % (2-12); NEUTROPHILS # (AUTO) 10.3 X10'3 (1.8-7.7); NEUTROPHILS % (AUTO) 74.2 % (42-75); PLATELET COUNT 185 X10'3 (140-440); RED CELL DISTRIBUTION WIDTH 19.6 % (11.5-14.5); WHITE BLOOD COUNT 13.9 X10'3 (4.5-11.0)
[2017-11-08] MEDS: ipratropium/albuterol 3ml nebule NEB SCH ×4 (02:56→21:12)
[2017-11-08] MEDS: tamsulosin 0.4mg capsule PO SCH (08:00)
[2017-11-08] MEDS: morphine 2 MG/ML inj. syringe IV PRN (09:07)
[2017-11-08] MEDS: micafungin inj 100 MG in normal saline 100ml IV soln 100 ML IV SCH (09:13)
[2017-11-08] MEDS: heparin, porcine 5000 units/ml vial SQ SCH ×2 (10:20→20:38)
[2017-11-08] MEDS: pantoprazole 40 MG vial IV SCH ×2 (10:25→20:38)
[2017-11-08] MEDS: amiodarone 200mg tablet PO SCH ×2 (10:28→20:38)
[2017-11-08] MEDS: furosemide 10 MG/1 ML 10ml inj IV SCH (10:28)
[2017-11-08] MEDS: lactobacillus rhamnosus 10,000 MMU CELLS/CAPSULE PO SCH ×2 (10:30→20:38)
[2017-11-08] MEDS: pyridostigmine br 60mg tablet PO SCH ×4 (10:30→20:38)
[2017-11-08 14:55] LABS: MAGNESIUM 1.6 MG/DL (1.5-2.4)
[2017-11-08] MEDS: potassium Cl oral solution 20 MEQ/15 ML PO PRN (15:05)
[2017-11-09] VITALS (23 sets, daily range): BP systolic 131–173; BP diastolic 62–82
[2017-11-09 03:05] LABS: BASOPHILS % (AUTO) 0.3 % (0-1); EOSINOPHILS # (AUTO) 0.6 X10'3 (0-0.9); EOSINOPHILS % (AUTO) 3.7 % (0-6); HEMATOCRIT 31.5 % (42.0-52.0); HEMOGLOBIN 10.5 g/dl (14.0-17.9); LYMPHOCYTES # (AUTO) 2.4 X10'3 (1.1-4.8); LYMPHOCYTES % (AUTO) 14.8 % (21-51); MEAN CORPUSCULAR HEMOGLOBIN 29.1 PG (27.0-31.0); MEAN CORPUSCULAR HGB CONC 33.3 % (33.0-36.5); MEAN CORPUSCULAR VOLUME 87.4 FL (78-98); MEAN PLATELET VOLUME 6.8 FL (7.4-10.4); MONOCYTES # (AUTO) 1.7 X10'3 (0-0.9); MONOCYTES % (AUTO) 10.1 % (2-12); NEUTROPHILS # (AUTO) 11.7 X10'3 (1.8-7.7); NEUTROPHILS % (AUTO) 71.1 % (42-75); PLATELET COUNT 214 X10'3 (140-440); RED CELL DISTRIBUTION WIDTH 19.1 % (11.5-14.5); WHITE BLOOD COUNT 16.5 X10'3 (4.5-11.0)
[2017-11-09 03:20] LABS: ALANINE AMINOTRANSFERASE 18 U/L (12-78); ALBUMIN 2.3 G/DL (3.4-5.0); ALBUMIN/GLOBULIN RATIO 0.6 (1.1-1.5); ALKALINE PHOSPHATASE 52 IU/L (46-116); ANION GAP 10 (8-16); ASPARTATE AMINO TRANSFERASE 18 U/L (10-37); BILIRUBIN,TOTAL 0.3 MG/DL (0.1-1.0); BLOOD UREA NITROGEN 39 MG/DL (7-18); BUN/CREATININE RATIO 9.7 (5.4-32.0); CALCIUM 8.4 MG/DL (8.5-10.1); CHLORIDE 102 MMOL/L (99-107); CREATININE 4.03 MG/DL (0.60-1.10); GLUCOSE 88 MG/DL (70-104); POTASSIUM 3.4 MMOL/L (3.5-5.1); SODIUM 138 MMOL/L (135-145); TOTAL CARBON DIOXIDE 26.4 MMOL/L (24-32); TOTAL PROTEIN 6.2 G/DL (6.4-8.2); eGFR 14 ML/MIN
[2017-11-09] MEDS: ipratropium/albuterol 3ml nebule NEB SCH ×6 (03:26→21:21)
[2017-11-09] MEDS: metoclopramide 5 mg/ml inj IV SCH ×2 (03:48→07:37)
[2017-11-09 06:22] LABS: ANISOCYTOSIS 2+; LARGE PLATELETS FEW; PLATELET ESTIMATE NORMAL; TOTAL CELLS COUNTED 100
[2017-11-09] MEDS: potassium Cl oral solution 20 MEQ/15 ML PO PRN (07:29)
[2017-11-09] MEDS: pantoprazole 40 MG vial IV SCH (07:32)
[2017-11-09] MEDS: micafungin inj 100 MG in normal saline 100ml IV soln 100 ML IV SCH (07:39)
[2017-11-09] MEDS: tamsulosin 0.4mg capsule PO SCH (08:00)
[2017-11-09] MEDS ORDERED: furosemide 10 MG/1 ML 10ml inj IV SCH (08:00)
[2017-11-09] MEDS: lactobacillus rhamnosus 10,000 MMU CELLS/CAPSULE PO SCH ×2 (08:07→19:34)
[2017-11-09] MEDS: amiodarone 200mg tablet PO SCH ×2 (08:07→19:34)
[2017-11-09] MEDS: pyridostigmine br 60mg tablet PO SCH ×4 (08:07→21:39)
[2017-11-09] MEDS: heparin, porcine 5000 units/ml vial SQ SCH ×2 (10:49→19:35)
[2017-11-09] MEDS ORDERED: potassium cl 20mEq in 1/2 NS 1,000 ML IV SCH (11:35)
[2017-11-09] MEDS: morphine 2 MG/ML inj. syringe IV PRN ×2 (12:02→22:46)
[2017-11-09] MEDS: predniSONE 20 mg tablet PO SCH (12:49)
[2017-11-10] VITALS (11 sets, daily range): BP systolic 125–147; BP diastolic 54–75
[2017-11-10] MEDS: ipratropium/albuterol 3ml nebule NEB SCH ×5 (02:57→21:16)
[2017-11-10 03:14] LABS: BASOPHILS % (AUTO) 0.3 % (0-1); EOSINOPHILS # (AUTO) 0.2 X10'3 (0-0.9); EOSINOPHILS % (AUTO) 1.5 % (0-6); HEMATOCRIT 29.7 % (42.0-52.0); HEMOGLOBIN 9.9 g/dl (14.0-17.9); LYMPHOCYTES # (AUTO) 1.8 X10'3 (1.1-4.8); LYMPHOCYTES % (AUTO) 12.3 % (21-51); MEAN CORPUSCULAR HEMOGLOBIN 29.1 PG (27.0-31.0); MEAN CORPUSCULAR HGB CONC 33.3 % (33.0-36.5); MEAN CORPUSCULAR VOLUME 87.5 FL (78-98); MEAN PLATELET VOLUME 7.2 FL (7.4-10.4); MONOCYTES % (AUTO) 6.7 % (2-12); NEUTROPHILS # (AUTO) 11.8 X10'3 (1.8-7.7); NEUTROPHILS % (AUTO) 79.2 % (42-75); PLATELET COUNT 192 X10'3 (140-440); RED CELL DISTRIBUTION WIDTH 19.4 % (11.5-14.5); WHITE BLOOD COUNT 14.8 X10'3 (4.5-11.0)
[2017-11-10 03:26] LABS: ALANINE AMINOTRANSFERASE 19 U/L (12-78); ALBUMIN 2.2 G/DL (3.4-5.0); ALBUMIN/GLOBULIN RATIO 0.6 (1.1-1.5); ALKALINE PHOSPHATASE 52 IU/L (46-116); ANION GAP 9 (8-16); ASPARTATE AMINO TRANSFERASE 17 U/L (10-37); BILIRUBIN,TOTAL 0.3 MG/DL (0.1-1.0); CALCIUM 8.7 MG/DL (8.5-10.1); CHLORIDE 101 MMOL/L (99-107); CREATININE 4.89 MG/DL (0.60-1.10); GLUCOSE 112 MG/DL (70-104); POTASSIUM 4.1 MMOL/L (3.5-5.1); SODIUM 134 MMOL/L (135-145); TOTAL CARBON DIOXIDE 24.5 MMOL/L (24-32); TOTAL PROTEIN 6.1 G/DL (6.4-8.2); eGFR 12 ML/MIN
[2017-11-10 03:27] LABS: BLOOD UREA NITROGEN 50 MG/DL (7-18); BUN/CREATININE RATIO 10.2 (5.4-32.0)
[2017-11-10 03:50] LABS: TOTAL CELLS COUNTED 2
[2017-11-10 03:51] LABS: ANISOCYTOSIS 2+; PLATELET ESTIMATE NORMAL
[2017-11-10 07:13] LABS: MAGNESIUM 1.4 MG/DL (1.5-2.4); PHOSPHORUS 4.5 MG/DL (2.3-4.5)
[2017-11-10] MEDS: tamsulosin 0.4mg capsule PO SCH (08:00)
[2017-11-10] MEDS: amiodarone 200mg tablet PO SCH ×2 (08:29→20:20)
[2017-11-10] MEDS: pyridostigmine br 60mg tablet PO SCH (08:29)
[2017-11-10] MEDS: lactobacillus rhamnosus 10,000 MMU CELLS/CAPSULE PO SCH ×2 (08:29→20:20)
[2017-11-10] MEDS: heparin, porcine 5000 units/ml vial SQ SCH ×2 (08:29→20:21)
[2017-11-10] MEDS: predniSONE 20 mg tablet PO SCH (09:45)
[2017-11-10] MEDS ORDERED: normal saline 1000ml 250 ML IV PRN (09:46)
[2017-11-10] MEDS ORDERED: heparin 1,000unit/ml 10ml vial 10 ML IV ONE (09:46)
[2017-11-10] MEDS ORDERED: epoetin 20,000 units/ml inj IV ONE (09:50)
[2017-11-10] MEDS ORDERED: heparin 1,000 units/ml 10ml inj HE ONE ×2 (09:50)
[2017-11-10] MEDS: micafungin inj 100 MG in normal saline 100ml IV soln 100 ML IV SCH (15:38)
[2017-11-10] MEDS: magnesium 1gm/100ml D5W IVPB 100 ML IV PRN (16:37)
[2017-11-11] MEDS ORDERED: pyridostigmine br 60mg tablet PO SCH
[2017-11-11 03:00] VITALS: BP 149/70
[2017-11-11] MEDS: ipratropium/albuterol 3ml nebule NEB SCH ×4 (04:57→20:14)
[2017-11-11 05:08] LABS: BASOPHILS % (AUTO) 0.1 % (0-1); EOSINOPHILS # (AUTO) 0.1 X10'3 (0-0.9); EOSINOPHILS % (AUTO) 0.7 % (0-6); HEMATOCRIT 31.2 % (42.0-52.0); HEMOGLOBIN 10.3 g/dl (14.0-17.9); LYMPHOCYTES # (AUTO) 2.1 X10'3 (1.1-4.8); LYMPHOCYTES % (AUTO) 15.7 % (21-51); MEAN CORPUSCULAR HEMOGLOBIN 28.9 PG (27.0-31.0); MEAN CORPUSCULAR HGB CONC 32.9 % (33.0-36.5); MEAN PLATELET VOLUME 7.1 FL (7.4-10.4); MONOCYTES # (AUTO) 1.6 X10'3 (0-0.9); MONOCYTES % (AUTO) 11.7 % (2-12); NEUTROPHILS # (AUTO) 9.6 X10'3 (1.8-7.7); NEUTROPHILS % (AUTO) 71.8 % (42-75); PLATELET COUNT 176 X10'3 (140-440); RED BLOOD COUNT 3.55 X10'6 (4.70-6.10); RED CELL DISTRIBUTION WIDTH 19.9 % (11.5-14.5); WHITE BLOOD COUNT 13.4 X10'3 (4.5-11.0)
[2017-11-11 05:34] LABS: ALANINE AMINOTRANSFERASE 26 U/L (12-78); ALBUMIN 2.2 G/DL (3.4-5.0); ALBUMIN/GLOBULIN RATIO 0.6 (1.1-1.5); ALKALINE PHOSPHATASE 55 IU/L (46-116); ANION GAP 9 (8-16); ASPARTATE AMINO TRANSFERASE 21 U/L (10-37); BILIRUBIN,TOTAL 0.4 MG/DL (0.1-1.0); BLOOD UREA NITROGEN 38 MG/DL (7-18); BUN/CREATININE RATIO 9.7 (5.4-32.0); CALCIUM 8.2 MG/DL (8.5-10.1); CHLORIDE 101 MMOL/L (99-107); CREATININE 3.91 MG/DL (0.60-1.10); GLUCOSE 87 MG/DL (70-104); MAGNESIUM 1.6 MG/DL (1.5-2.4); PHOSPHORUS 4.5 MG/DL (2.3-4.5); POTASSIUM 3.4 MMOL/L (3.5-5.1); SODIUM 136 MMOL/L (135-145); TOTAL CARBON DIOXIDE 26.5 MMOL/L (24-32); TOTAL PROTEIN 6.1 G/DL (6.4-8.2); eGFR 15 ML/MIN
[2017-11-11 06:00] VITALS: BP 157/67
[2017-11-11 06:30] LABS: ANISOCYTOSIS 2+; PLATELET ESTIMATE NORMAL
[2017-11-11] MEDS: heparin, porcine 5000 units/ml vial SQ SCH ×2 (06:52→20:00)
[2017-11-11] MEDS: micafungin inj 100 MG in normal saline 100ml IV soln 100 ML IV SCH (08:10)
[2017-11-11] MEDS: potassium Cl oral solution 20 MEQ/15 ML PO PRN ×2 (08:18→16:49)
[2017-11-11] MEDS: tamsulosin 0.4mg capsule PO SCH (08:18)
[2017-11-11] MEDS: lactobacillus rhamnosus 10,000 MMU CELLS/CAPSULE PO SCH ×2 (08:18→21:02)
[2017-11-11] MEDS: predniSONE 20 mg tablet PO SCH (08:18)
[2017-11-11] MEDS: amiodarone 200mg tablet PO SCH ×2 (08:19→21:02)
[2017-11-11] MEDS: pyridostigmine br 60mg tablet PO SCH ×3 (08:22→21:03)
[2017-11-11 11:00] VITALS: BP 144/67
[2017-11-11] MEDS: LACTOSE-FREE FOOD 237ML (BOOST) PO SCH ×2 (13:00→18:00)
[2017-11-11] MEDS: morphine 2 MG/ML inj. syringe IV PRN (14:18)
[2017-11-11 15:00] VITALS: BP 135/66
[2017-11-11 19:00] VITALS: BP 141/60
[2017-11-11 23:00] VITALS: BP 134/58
[2017-11-12] MEDS: pyridostigmine br 60mg tablet PO SCH ×3 (02:29→15:00)
[2017-11-12 03:00] VITALS: BP 156/66
[2017-11-12] MEDS: ipratropium/albuterol 3ml nebule NEB SCH ×3 (03:04→15:00)
[2017-11-12 07:24] VITALS: BP 145/61
[2017-11-12] MEDS: LACTOSE-FREE FOOD 237ML (BOOST) PO SCH ×2 (08:00→15:08)
[2017-11-12] MEDS: heparin, porcine 5000 units/ml vial SQ SCH (08:00)
[2017-11-12] MEDS ORDERED: micafungin inj 100 MG in normal saline 100ml IV soln 100 ML IV ONE (08:25)
[2017-11-12] MEDS: tamsulosin 0.4mg capsule PO SCH (08:45)
[2017-11-12] MEDS: predniSONE 20 mg tablet PO SCH (08:45)
[2017-11-12] MEDS: amiodarone 200mg tablet PO SCH (08:45)
[2017-11-12] MEDS: lactobacillus rhamnosus 10,000 MMU CELLS/CAPSULE PO SCH (08:46)
[2017-11-12] MEDS ORDERED: LIDOcaine 1%/PF 5ML 10 MG/ML VIAL SQ ONE (09:05)
[2017-11-12] MEDS ORDERED: fentaNYL/PF 50MCG/1 ML 2ML syringe IV PRN (09:05)
[2017-11-12] MEDS ORDERED: midazolam 2 mg/2 ml injection IV PRN (09:05)
[2017-11-12] MEDS ORDERED: heparin 1,000 units/ml 10ml inj ICATH ONE (09:05)
[2017-11-12] MEDS ORDERED: LIDOcaine 1%/PF 5ML 10 MG/ML VIAL ONE (09:08)
[2017-11-12] MEDS ORDERED: normal saline 1000ml 250 ML IV PRN (09:13)
[2017-11-12] MEDS ORDERED: heparin 1,000unit/ml 10ml vial 10 ML IV ONE (09:13)
[2017-11-12] MEDS ORDERED: epoetin 20,000 units/ml inj IV ONE (09:15)
[2017-11-12] MEDS ORDERED: heparin 1,000 units/ml 10ml inj HE ONE ×2 (09:20)
[2017-11-12] MEDS ORDERED: fentaNYL/PF 50MCG/1 ML 2ML syringe ONE (09:52)
[2017-11-12] MEDS ORDERED: midazolam 2 mg/2 ml injection ONE (09:52)
[2017-11-12] MEDS ORDERED: heparin 1,000unit/ml 10ml vial 10 ML ONE (09:52)
[2017-11-12 12:32] LABS: HEMATOCRIT 31.8 % (42.0-52.0); HEMOGLOBIN 10.8 g/dl (14.0-17.9); MEAN CORPUSCULAR HEMOGLOBIN 29.5 PG (27.0-31.0); MEAN CORPUSCULAR HGB CONC 33.8 % (33.0-36.5); MEAN CORPUSCULAR VOLUME 87.1 FL (78-98); MEAN PLATELET VOLUME 7.4 FL (7.4-10.4); PLATELET COUNT 154 X10'3 (140-440); RED BLOOD COUNT 3.65 X10'6 (4.70-6.10); RED CELL DISTRIBUTION WIDTH 19.9 % (11.5-14.5)
[2017-11-12] MEDS ORDERED: zinc sulfate 220mg capsule PO SCH (13:00)
[2017-11-12 15:00] VITALS: BP 119/73
== END 2017-11-12 18:40 | DRG 856 ==
LOC: ER 16:39 → ED HOLD 10-28 00:45 → PCU 3S 10-28 01:59 → CICU 2S 10-28 19:10 → ICU 2S 11-07 17:55 → PCU 3S 11-10 09:00
PROVIDERS: ADMIT Internal Medicine; ATTEND Internal Medicine Critical Care Medicine
PROC: 5A1955Z Respiratory Ventilation, Greater than 96 Consecutive Hours (ICD-10-PCS; 2017-10-28)
PROC: 0BH17EZ Insertion of Endotracheal Airway into Trachea, Via Natural or Artificial Opening (ICD-10-PCS; 2017-10-28)
PROC: 0W9G00Z Drainage of Peritoneal Cavity with Drainage Device, Open Approach (ICD-10-PCS; principal; 2017-10-28 17:47)
PROC: 02HV33Z Insertion of Infusion Device into Superior Vena Cava, Percutaneous Approach (ICD-10-PCS; 2017-10-31)
PROC: B548ZZA Ultrasonography of Superior Vena Cava, Guidance (ICD-10-PCS; 2017-10-31)
PROC: 5A1D70Z Performance of Urinary Filtration, Intermittent, Less than 6 Hours Per Day (ICD-10-PCS; 2017-10-31)
PROC: 30233N1 Transfusion of Nonautologous Red Blood Cells into Peripheral Vein, Percutaneous Approach (ICD-10-PCS; 2017-11-01)
PROC: 5A1D70Z Performance of Urinary Filtration, Intermittent, Less than 6 Hours Per Day (ICD-10-PCS; 2017-11-01)
PROC: 5A1D70Z Performance of Urinary Filtration, Intermittent, Less than 6 Hours Per Day (ICD-10-PCS; 2017-11-03)
PROC: 5A1D70Z Performance of Urinary Filtration, Intermittent, Less than 6 Hours Per Day (ICD-10-PCS; 2017-11-05)
PROC: 5A1D70Z Performance of Urinary Filtration, Intermittent, Less than 6 Hours Per Day (ICD-10-PCS; 2017-11-06)
PROC: 5A1D70Z Performance of Urinary Filtration, Intermittent, Less than 6 Hours Per Day (ICD-10-PCS; 2017-11-07)
PROC: 5A1D70Z Performance of Urinary Filtration, Intermittent, Less than 6 Hours Per Day (ICD-10-PCS; 2017-11-10)
PROC: 02HV33Z Insertion of Infusion Device into Superior Vena Cava, Percutaneous Approach (ICD-10-PCS; 2017-11-12)
PROC: B548ZZA Ultrasonography of Superior Vena Cava, Guidance (ICD-10-PCS; 2017-11-12)
PROC: 5A1D70Z Performance of Urinary Filtration, Intermittent, Less than 6 Hours Per Day (ICD-10-PCS; 2017-11-12)
DX: T81.4XXA Infection following a procedure, initial encounter (principal); A41.9 Sepsis, unspecified organism; K65.1 Peritoneal abscess; J18.9 Pneumonia, unspecified organism; J96.01 Acute respiratory failure with hypoxia; R65.20 Severe sepsis without septic shock; E87.2 Acidosis; N17.9 Acute kidney failure, unspecified; B37.89 Other sites of candidiasis; K92.2 Gastrointestinal hemorrhage, unspecified; I48.91 Unspecified atrial fibrillation; E87.6 Hypokalemia; G70.00 Myasthenia gravis without (acute) exacerbation; D72.1 Eosinophilia; I73.9 Peripheral vascular disease, unspecified; B96.20 Unspecified Escherichia coli [E. coli] as the cause of diseases classified elsewhere; B96.1 Klebsiella pneumoniae [K. pneumoniae] as the cause of diseases classified elsewhere; N18.9 Chronic kidney disease, unspecified; Z86.718 Personal history of other venous thrombosis and embolism; Z86.73 Personal history of transient ischemic attack (TIA), and cerebral infarction without residual deficits; Z87.891 Personal history of nicotine dependence; Z90.49 Acquired absence of other specified parts of digestive tract; Z93.3 Colostomy status; Z96.643 Presence of artificial hip joint, bilateral; Z99.2 Dependence on renal dialysis; Z79.899 Other long term (current) drug therapy; Y83.8 Other surgical procedures as the cause of abnormal reaction of the patient, or of later complication, without mention of misadventure at the time of the procedure; Y92.89 Other specified places as the place of occurrence of the external cause
CPT/HCPCS: 36415; 36558; 36600; 71045; 74176; 76937; 77001; 80048; 80053; 81001; 82272; 82570; 82607; 82803; 82810; 82948; 83605; 83735; 84100; 84132; 84134; 84145; 84156; 84300; 84540; 84560; 85018; 85025; 85027; 85576; 85610; 85730; 86870; 86880; 86885; 86900; 86901; 86902; 86905; 86906; 86920; 86922; 87040; 87070; 87075; 87077; 87207; 87324; 87340; 87449; 90935; 92616; 93005; 93970; 93971; 94002; 94003; 94640; 94760; 97110; 97161; 97530; 99152; 99153; 99291; A4344; A4421; A4620; A6209; A6212; A6213; A6222; A6243; A6251; A6253; A6257; A6258; A6446; A6449; A7000; A7015; A9270; C1750; C1751; C1894; C9113; G0257; J0171; J0282; J0885; J1170; J1200; J1450; J1644; J1940; J2001; J2020; J2248; J2250; J2270; J2405; J2543; J2765; J2930; J2997; J3010; J3475; J3480; J3490; J7030; J7042; J7120; J7512; P9016; P9045; P9047; Q9963

== ENCOUNTER 2017-11-15 12:02 | Inpatient (IN) | payer MEDICARE ==
[2017-11-15] VITALS (13 sets, daily range): BP systolic 62–167; BP diastolic 36–129
[~2017-11-15] VITALS: Ht 182.9 cm; Wt 81.4 kg
[~2017-11-15 12:02] MED LIST changes: -DIPH-423 PO; -ENOX60DI10 SUBCUT; -PIPE2.2535 IV; -PYRI60TA PO; -TAMS0.4C32
[2017-11-15] MEDS ORDERED: normal saline 1000ML IV soln IV ONE (12:30)
[2017-11-15] MEDS ORDERED: cefepime 1GM/NS ADD-VANTAGE 100 ML IV STA (12:30)
[2017-11-15 12:50] LABS: BASOPHILS # (AUTO) 0.1 X10'3 (0-0.2); BASOPHILS % (AUTO) 0.3 % (0-1); EOSINOPHILS % (AUTO) 0 % (0-6); HEMATOCRIT 37.7 % (42.0-52.0); HEMOGLOBIN 12.6 g/dl (14.0-17.9); LYMPHOCYTES # (AUTO) 0.5 X10'3 (1.1-4.8); MEAN CORPUSCULAR HEMOGLOBIN 29.6 PG (27.0-31.0); MEAN CORPUSCULAR HGB CONC 33.6 % (33.0-36.5); MEAN CORPUSCULAR VOLUME 88.3 FL (78-98); MEAN PLATELET VOLUME 7.7 FL (7.4-10.4); MONOCYTES # (AUTO) 0.7 X10'3 (0-0.9); MONOCYTES % (AUTO) 2.5 % (2-12); NEUTROPHILS # (AUTO) 25.6 X10'3 (1.8-7.7); NEUTROPHILS % (AUTO) 95.2 % (42-75); PLATELET COUNT 152 X10'3 (140-440); RED BLOOD COUNT 4.27 X10'6 (4.70-6.10); RED CELL DISTRIBUTION WIDTH 20.6 % (11.5-14.5)
[2017-11-15 12:54] LABS: WHITE BLOOD COUNT 26.9 X10'3 (4.5-11.0)
[2017-11-15] MEDS ORDERED: rocuronium 10mg/ml inj IV ONE (13:00)
[2017-11-15] MEDS ORDERED: etomidate 2mg/ml inj. ONE (13:00)
[2017-11-15 13:01] LABS: PROTHROMBIN TIME 12.8 SECONDS (9.0-12.0)
[2017-11-15 13:02] LABS: INR 1.2 INR; PARTIAL THROMBOPLASTIN TIME 31 SECONDS (22-32)
[2017-11-15] MEDS ORDERED: vancomycin inj 1,000 MG in normal saline 250ml IV soln 250 ML IV STA (13:06)
[2017-11-15 13:08] LABS: ANISOCYTOSIS 3+; PLATELET ESTIMATE NORMAL; TOTAL CELLS COUNTED 100
[2017-11-15 13:09] LABS: POIKILOCYTOSIS FEW
[2017-11-15] MEDS ORDERED: vancomycin/NS 1 GM ADD-VANTAGE 250 ML X 1 DOSE IV ONE (13:10)
[2017-11-15 13:13] LABS: ALANINE AMINOTRANSFERASE 25 U/L (12-78); ALBUMIN 2.2 G/DL (3.4-5.0); ALBUMIN/GLOBULIN RATIO 0.4 (1.1-1.5); ALKALINE PHOSPHATASE 90 IU/L (46-116); ANION GAP 13 (8-16); ASPARTATE AMINO TRANSFERASE 11 U/L (10-37); BILIRUBIN,TOTAL 0.9 MG/DL (0.1-1.0); BLOOD UREA NITROGEN 49 MG/DL (7-18); CHLORIDE 99 MMOL/L (99-107); CREATININE 3.76 MG/DL (0.60-1.10); GLUCOSE 138 MG/DL (70-104); MAGNESIUM 1.6 MG/DL (1.5-2.4); POTASSIUM 3.4 MMOL/L (3.5-5.1); SODIUM 134 MMOL/L (135-145); TOTAL CARBON DIOXIDE 22.3 MMOL/L (24-32); TOTAL PROTEIN 7.4 G/DL (6.4-8.2); eGFR 16 ML/MIN
[2017-11-15] MEDS ORDERED: ipratropium/albuterol 3ml nebule NEB ONE (13:15)
[2017-11-15] MEDS ORDERED: MIDAZolam 5mg/ml 2ml vial IV ONE (14:25)
[2017-11-15 14:31] LABS: ABG BASE EXCESS -5.5 mmol/L (-2.0-3.0); ABG HCO3 21.3 mmol/L (22.0-26.0); ABG OXYGEN SATURATION 98.6 % (95-98); ABG PH (T) 7.275 (7.350-7.450); ABG PO2 (T) 143.3 mmHg (83-108); ALLEN'S TEST Positive; FMetHb 0.3 % (0.3-1.12); FO2Hb 97.3 % (94-100); TOTAL HEMOGLOBIN 13.4 G/dl (14.0-18.0)
[2017-11-15] MEDS: midazolam 100mg in NS 100ml 100 ML IV PRN (14:43)
[2017-11-15] MEDS ORDERED: vancomycin/NS 1 GM ADD-VANTAGE 250 ML IV SCH (14:50)
[2017-11-15] MEDS ORDERED: albuterol 2.5 MG/3 ML nebule NEB PRN (14:50)
[2017-11-15] MEDS ORDERED: potassium Cl 20 mEq SR tablet PO PRN ×2 (14:50)
[2017-11-15] MEDS ORDERED: acetaminophen 325mg tablet PO PRN (14:50)
[2017-11-15] MEDS: cefepime 1GM/NS ADD-VANTAGE 100 ML IV SCH (14:50)
[2017-11-15] MEDS ORDERED: ondansetron/PF 4mg/2ml inj IV PRN (14:50)
[2017-11-15] MEDS: K, MAG and/or Phos replacement - Verify level? MC SCH (14:50)
[2017-11-15 15:19] LABS: AMYLASE 70 U/L (25-115); LIPASE 192 U/L (73-393)
[2017-11-15] MEDS ORDERED: normal saline 1000ml 1,000 ML IVB ONE (15:21)
[2017-11-15] MEDS ORDERED: APIX5TAB3 PO (15:24)
[2017-11-15] MEDS ORDERED: potassium Cl oral solution 20 MEQ/15 ML PO PRN ×2 (15:28)
[2017-11-15] MEDS ORDERED: chlorproMAZINE 25mg/ml inj. IM PRN (15:30)
[2017-11-15] MEDS ORDERED: vancomycin inj 1,250 MG in normal saline 250ml IV soln 250 ML IV PRN (15:45)
[2017-11-15] MEDS ORDERED: NORepinephrine 8mg/ 250ml NS 250 ML IV ONE (15:56)
[2017-11-15] MEDS: NORepinephrine 8mg/ 250ml NS 250 ML IV SCH (16:00)
[2017-11-15] MEDS: pyridostigmine br 60mg tablet PO SCH ×2 (16:00→20:00)
[2017-11-15] MEDS ORDERED: vasopressin inj. 60 UNIT in normal saline 100ml IV soln 97 ML IV SCH (16:10)
[2017-11-15] MEDS ORDERED: vasoPRESSIN 20 units/ml inj. ONE ×2 (16:11→16:16)
[2017-11-15] MEDS ORDERED: PRED5TAB PO (16:20)
[2017-11-15 17:51] LABS: OCCULT BLOOD STOOL POSITIVE (Neg)
[2017-11-15] MEDS ORDERED: normal saline 1000ml 1,000 ML IV ONE ×2 (18:00→18:05)
[2017-11-15] MEDS: pantoprazole 40 MG vial IV SCH (18:53)
[2017-11-15 19:50] LABS: OXYGEN SATURATION (MIXED VEN) 85.4 % (60-80); PO2 MIXED VENOUS (TEMP COR) 68.2 mmHg (35-46)
[2017-11-15 19:55] LABS: ABG BASE EXCESS -9.7 mmol/L (-2.0-3.0); ABG HCO3 17.7 mmol/L (22.0-26.0); ABG OXYGEN SATURATION 99.6 % (95-98); ABG PCO2 (T) 48.7 mmHg (35.0-48.0); ABG PO2 (T) 298.3 mmHg (83-108); ALLEN'S TEST Positive; FCOHb 0.2 % (0.5-1.5); FMetHb 0.3 % (0.3-1.12); FO2Hb 99.1 % (94-100); MINUTE VOLUME 10 L/min; PEEP 10 cm H2O; RESPIRATORY RATE 14 b/min; RESPIRATORY RATE (OBSERVED) 19 b/min; TIDAL VOLUME 500 mL; TOTAL HEMOGLOBIN 12.5 G/dl (14.0-18.0)
[2017-11-15] MEDS: ipratropium/albuterol 3ml nebule NEB SCH ×2 (19:56→23:08)
[2017-11-15] MEDS ORDERED: amiodarone 200mg tablet PO SCH (20:00)
[2017-11-15] MEDS ORDERED: lactobacillus rhamnosus 10,000 MMU CELLS/CAPSULE PO SCH (20:00)
[2017-11-15] MEDS ORDERED: methylPREDNISolone sod succ/PF 40mg inj. IV SCH (20:00)
[2017-11-15] MEDS ORDERED: heparin, porcine 5000 units/ml vial SQ SCH (20:00)
[2017-11-15] MEDS: hydrocortisone sod succ/PF 100mg/2ml inj. IV SCH (21:12)
[2017-11-15] MEDS: amiodarone/D5 360MG/200ML BAG 200 ML IV SCH (21:13)
[2017-11-15] MEDS: FENTANYL-0.9 % NACL/PF 100 ML IV PRN (22:16)
[2017-11-16] VITALS (24 sets, daily range): BP systolic 84–146; BP diastolic 48–79
[2017-11-16] MEDS: NORepinephrine 8mg/ 250ml NS 250 ML IV SCH (01:41)
[2017-11-16] MEDS: amiodarone/D5 360MG/200ML BAG 200 ML IV SCH ×4 (02:01→21:48)
[2017-11-16] MEDS: pyridostigmine br 60mg tablet PO SCH ×2 (02:11)
[2017-11-16] MEDS: hydrocortisone sod succ/PF 100mg/2ml inj. IV SCH ×4 (02:26→21:43)
[2017-11-16 02:29] LABS: BASOPHILS % (AUTO) 0 % (0-1); EOSINOPHILS % (AUTO) 0 % (0-6); HEMATOCRIT 33.2 % (42.0-52.0); HEMOGLOBIN 10.7 g/dl (14.0-17.9); LYMPHOCYTES # (AUTO) 0.2 X10'3 (1.1-4.8); LYMPHOCYTES % (AUTO) 0.8 % (21-51); MEAN CORPUSCULAR HEMOGLOBIN 29.1 PG (27.0-31.0); MEAN CORPUSCULAR HGB CONC 32.2 % (33.0-36.5); MEAN CORPUSCULAR VOLUME 90.5 FL (78-98); MONOCYTES # (AUTO) 0.8 X10'3 (0-0.9); MONOCYTES % (AUTO) 3.3 % (2-12); NEUTROPHILS # (AUTO) 24.1 X10'3 (1.8-7.7); NEUTROPHILS % (AUTO) 95.9 % (42-75); PLATELET COUNT 197 X10'3 (140-440); RED BLOOD COUNT 3.67 X10'6 (4.70-6.10); RED CELL DISTRIBUTION WIDTH 20.9 % (11.5-14.5)
[2017-11-16 02:33] LABS: WHITE BLOOD COUNT 25.2 X10'3 (4.5-11.0)
[2017-11-16 02:40] LABS: INR 1.3 INR; PARTIAL THROMBOPLASTIN TIME 37 SECONDS (22-32); PROTHROMBIN TIME 13.2 SECONDS (9.0-12.0)
[2017-11-16 02:52] LABS: ALANINE AMINOTRANSFERASE 20 U/L (12-78); ALBUMIN 1.8 G/DL (3.4-5.0); ALBUMIN/GLOBULIN RATIO 0.4 (1.1-1.5); ALKALINE PHOSPHATASE 79 IU/L (46-116); ANION GAP 16 (8-16); ASPARTATE AMINO TRANSFERASE 9 U/L (10-37); BILIRUBIN,TOTAL 0.5 MG/DL (0.1-1.0); BLOOD UREA NITROGEN 62 MG/DL (7-18); BUN/CREATININE RATIO 14.2 (5.4-32.0); CALCIUM 8.6 MG/DL (8.5-10.1); CHLORIDE 103 MMOL/L (99-107); CREATININE 4.37 MG/DL (0.60-1.10); GLUCOSE 203 MG/DL (70-104); MAGNESIUM 1.6 MG/DL (1.5-2.4); PHOSPHORUS 6.5 MG/DL (2.3-4.5); POTASSIUM 4.3 MMOL/L (3.5-5.1); SODIUM 137 MMOL/L (135-145); TOTAL CARBON DIOXIDE 18.3 MMOL/L (24-32); TOTAL PROTEIN 6.8 G/DL (6.4-8.2); VANCOMYCIN,RANDOM 23.6 UG/ML; eGFR 13 ML/MIN
[2017-11-16] MEDS: VANCOMYCIN LEVEL IV SCH (03:00)
[2017-11-16] MEDS: ipratropium/albuterol 3ml nebule NEB SCH ×6 (03:29→22:53)
[2017-11-16 04:20] LABS: ABG BASE EXCESS -9.1 mmol/L (-2.0-3.0); ABG HCO3 16.4 mmol/L (22.0-26.0); ABG OXYGEN SATURATION 97.4 % (95-98); ABG PCO2 (T) 33.7 mmHg (35.0-48.0); ABG PH (T) 7.304 (7.350-7.450); ABG PO2 (T) 98.1 mmHg (83-108); ALLEN'S TEST Positive; FCOHb 0.1 % (0.5-1.5); FO2Hb 97.3 % (94-100); MINUTE VOLUME 11 L/min; PATIENT TEMPERATURE 36.8; PEEP 10 cm H2O; RESPIRATORY RATE 20 b/min; RESPIRATORY RATE (OBSERVED) 20 b/min; TIDAL VOLUME 500 mL; TOTAL HEMOGLOBIN 11.3 G/dl (14.0-18.0)
[2017-11-16 04:32] LABS: ANISOCYTOSIS 3+; PLATELET ESTIMATE NORMAL; TOTAL CELLS COUNTED 100
[2017-11-16 06:43] LABS: CLARITY,URINE CLOUDY (Clear); COLOR,URINE YELLOW (Yellow); GLUCOSE, URINE NEGATIVE (Neg); KETONES,URINE TRACE mg/dl (Neg); LEUKOCYTE ESTERASE ,URINE MODERATE (Neg); NITRITES, URINE NEGATIVE (Neg); OCCULT BLOOD,URINE LARGE (Neg); PROTEIN,URINE 100 mg/dl (Neg); UROBILINOGEN,URINE 0.2 E.U/dL (0.2-1.0)
[2017-11-16 06:54] LABS: UA COLLECTION TYPE FOLEY CATH
[2017-11-16 06:55] LABS: BACTERIA,URINE 1+ /HPF (Neg); RBC,URINE 20-50 /HPF (0-2); WBC,URINE 50-100 /HPF (0-4)
[2017-11-16 06:56] LABS: AMORPHOUS URATES 1+; MUCUS STRANDS NONE SEEN /LPF (Neg); SQUAMOUS EPITHELIAL CELL,UR NONE SEEN /LPF (FEW)
[2017-11-16] MEDS: pantoprazole 40 MG vial IV SCH ×2 (07:49→21:43)
[2017-11-16] MEDS ORDERED: folic acid 1mg tablet PO SCH (08:00)
[2017-11-16] MEDS ORDERED: multivitamins, therapeutics tablet PO SCH (08:00)
[2017-11-16] MEDS: K, MAG and/or Phos replacement - Verify level? MC SCH (08:00)
[2017-11-16] MEDS: cefepime 1GM/NS ADD-VANTAGE 100 ML IV SCH (08:00)
[2017-11-16] MEDS ORDERED: apixaban 5mg tablet PO SCH (08:00)
[2017-11-16] MEDS ORDERED: tamsulosin 0.4mg capsule PO SCH (08:00)
[2017-11-16] MEDS ORDERED: normal saline 1000ml 100 ML IV PRN (08:37)
[2017-11-16] MEDS ORDERED: epoetin 20,000 units/ml inj IV ONE (08:40)
[2017-11-16] MEDS ORDERED: albumin (human) 25% 100ml IV 100 ML IV PRN (08:40)
[2017-11-16] MEDS ORDERED: heparin 1,000 units/ml 10ml inj HE ONE ×3 (08:45→08:55)
[2017-11-16 09:56] LABS: C DIFF ANTIGEN NEGATIVE (NEGATIVE); C DIFF SPECIMEN=DIARRHEA? ACCEPTABLE; C DIFFICILE TOXINS A&B NEGATIVE (Neg)
[2017-11-16 10:54] LABS: HEMOGLOBIN 10.1 g/dl (14.0-17.9); MEAN CORPUSCULAR HEMOGLOBIN 29.3 PG (27.0-31.0); MEAN CORPUSCULAR HGB CONC 32.7 % (33.0-36.5); MEAN CORPUSCULAR VOLUME 89.6 FL (78-98); MEAN PLATELET VOLUME 7.4 FL (7.4-10.4); PLATELET COUNT 165 X10'3 (140-440); RED BLOOD COUNT 3.45 X10'6 (4.70-6.10); RED CELL DISTRIBUTION WIDTH 20.9 % (11.5-14.5); WHITE BLOOD COUNT 15.4 X10'3 (4.5-11.0)
[2017-11-16] MEDS: iron sucrose complex injection 200 MG in normal saline 100ml IV soln 100 ML IV SCH (10:55)
[2017-11-16 11:46] LABS: % IRON SATURATION 11 % (11-46); IRON 18 UG/DL (53-167); TOTAL IRON BINDING CAPACITY 162 UG/DL (259-388)
[2017-11-16] MEDS ORDERED: sodium phosphate inj. 15 MMOL in dextrose 5%-water 150 ML IV PRN (14:14)
[2017-11-16] MEDS ORDERED: sodium phosphate inj. 30 MMOL in dextrose 5%-water 250 ML IV PRN (14:14)
[2017-11-16] MEDS ORDERED: magnesium 1gm/100ml D5W IVPB 100 ML IV PRN (14:15)
[2017-11-16] MEDS ORDERED: potassium Cl 40MEQ/250ML bag 250 ML IV PRN ×2 (14:15)
[2017-11-16] MEDS ORDERED: potassium Cl 20 mEq SR tablet PO PRN ×2 (14:15)
[2017-11-16] MEDS ORDERED: magnesium Cl slow-release 64mg tablet PO PRN (14:15)
[2017-11-16] MEDS ORDERED: potassium Cl 40MEQ/NS 500ml 500 ML IV PRN ×2 (14:15)
[2017-11-16] MEDS ORDERED: Neutra Phos packet PO PRN (14:15)
[2017-11-16] MEDS ORDERED: magnesium 4gm in 100ml NS 100 ML IV PRN (14:15)
[2017-11-16] MEDS: micafungin inj 100 MG in normal saline 100ml IV soln 100 ML IV SCH (14:59)
[2017-11-16 17:10] LABS: HEMATOCRIT 28.7 % (42.0-52.0); HEMOGLOBIN 9.4 g/dl (14.0-17.9); MEAN CORPUSCULAR HEMOGLOBIN 29.2 PG (27.0-31.0); MEAN CORPUSCULAR HGB CONC 32.8 % (33.0-36.5); MEAN CORPUSCULAR VOLUME 89.1 FL (78-98); MEAN PLATELET VOLUME 7.8 FL (7.4-10.4); PLATELET COUNT 164 X10'3 (140-440); RED BLOOD COUNT 3.22 X10'6 (4.70-6.10); RED CELL DISTRIBUTION WIDTH 20.9 % (11.5-14.5); WHITE BLOOD COUNT 13.5 X10'3 (4.5-11.0)
[2017-11-16] MEDS ORDERED: dextrose ORAL solution 15 GM/59 ML bottle PO PRN ×2 (18:35)
[2017-11-16] MEDS ORDERED: glucagon, human recombinant 1mg kit SUBCUT PRN (18:35)
[2017-11-16] MEDS ORDERED: MESSAGE TO PHARMACY PO ONE (18:35)
[2017-11-16] MEDS ORDERED: insulin Lispro (HumaLOG) vial - multi-dose SQ SCH (18:35)
[2017-11-16] MEDS ORDERED: dextrose 50%-water 50ml dispensing syringe IV PRN ×2 (18:35)
[2017-11-16] MEDS ORDERED: Dextrose 10%-water IV solution 1,000 ML IV PRN (20:00)
[2017-11-16] MEDS: insulin glargine (Lantus) pen - multi-dose SQ SCH (21:00)
[2017-11-16] MEDS ORDERED: diatrozoate meglu/diatrozoate sod (37% iodine) 120ML oral solution PO ONE ×2 (21:14→21:15)
[2017-11-16] MEDS: [UNRECOGNIZED DRUG - REMARK] IV SCH (21:43)
[2017-11-16] MEDS: FENTANYL-0.9 % NACL/PF 100 ML IV PRN (21:48)
[2017-11-16] MEDS: diatr meglu/diatrizoate 30ml oral sol.-(3 dose) bottle PO SCH (23:24)
[2017-11-17] VITALS (23 sets, daily range): BP systolic 87–132; BP diastolic 43–64
[2017-11-17] MEDS: hydrocortisone sod succ/PF 100mg/2ml inj. IV SCH ×4 (02:39→19:27)
[2017-11-17 02:51] LABS: BASOPHILS % (AUTO) 0.1 % (0-1); EOSINOPHILS % (AUTO) 0 % (0-6); HEMATOCRIT 26.1 % (42.0-52.0); HEMOGLOBIN 8.6 g/dl (14.0-17.9); LYMPHOCYTES # (AUTO) 0.3 X10'3 (1.1-4.8); LYMPHOCYTES % (AUTO) 2.6 % (21-51); MEAN CORPUSCULAR HEMOGLOBIN 29.5 PG (27.0-31.0); MEAN CORPUSCULAR VOLUME 89.3 FL (78-98); MEAN PLATELET VOLUME 8.1 FL (7.4-10.4); MONOCYTES # (AUTO) 0.4 X10'3 (0-0.9); MONOCYTES % (AUTO) 3.4 % (2-12); NEUTROPHILS # (AUTO) 11.9 X10'3 (1.8-7.7); NEUTROPHILS % (AUTO) 93.9 % (42-75); PLATELET COUNT 174 X10'3 (140-440); RED BLOOD COUNT 2.92 X10'6 (4.70-6.10); RED CELL DISTRIBUTION WIDTH 21.5 % (11.5-14.5); WHITE BLOOD COUNT 12.7 X10'3 (4.5-11.0)
[2017-11-17] MEDS: VANCOMYCIN LEVEL IV SCH (03:00)
[2017-11-17 03:04] LABS: ALANINE AMINOTRANSFERASE 20 U/L (12-78); ALBUMIN 1.7 G/DL (3.4-5.0); ALBUMIN/GLOBULIN RATIO 0.4 (1.1-1.5); ALKALINE PHOSPHATASE 57 IU/L (46-116); ANION GAP 16 (8-16); ASPARTATE AMINO TRANSFERASE 8 U/L (10-37); BILIRUBIN,TOTAL 0.2 MG/DL (0.1-1.0); BLOOD UREA NITROGEN 85 MG/DL (7-18); CALCIUM 8.1 MG/DL (8.5-10.1); CHLORIDE 104 MMOL/L (99-107); GLUCOSE 161 MG/DL (70-104); INR 1.2 INR; MAGNESIUM 1.6 MG/DL (1.5-2.4); PARTIAL THROMBOPLASTIN TIME 35 SECONDS (22-32); PHOSPHORUS 7.1 MG/DL (2.3-4.5); POTASSIUM 3.7 MMOL/L (3.5-5.1); PREALBUMIN 15.4 MG/DL (19-36); PROTHROMBIN TIME 12.4 SECONDS (9.0-12.0); SODIUM 138 MMOL/L (135-145); TOTAL CARBON DIOXIDE 17.9 MMOL/L (24-32); TOTAL PROTEIN 6.2 G/DL (6.4-8.2); TRIGLYCERIDES 180 MG/DL (20-135); eGFR 10 ML/MIN
[2017-11-17] MEDS: ipratropium/albuterol 3ml nebule NEB SCH ×3 (03:27→11:03)
[2017-11-17 03:41] LABS: ABG BASE EXCESS -10.1 mmol/L (-2.0-3.0); ABG HCO3 14.9 mmol/L (22.0-26.0); ABG OXYGEN SATURATION 96.3 % (95-98); ABG PH (T) 7.315 (7.350-7.450); ABG PO2 (T) 93.9 mmHg (83-108); ALLEN'S TEST Positive; FCOHb 0.3 % (0.5-1.5); FMetHb 0.1 % (0.3-1.12); FO2Hb 95.9 % (94-100); MINUTE VOLUME 11 L/min; PATIENT TEMPERATURE 37.2; PEEP 6 cm H2O; RESPIRATORY RATE 20 b/min; RESPIRATORY RATE (OBSERVED) 20 b/min; TIDAL VOLUME 500 mL; TOTAL HEMOGLOBIN 9.4 G/dl (14.0-18.0)
[2017-11-17] MEDS: amiodarone/D5 360MG/200ML BAG 200 ML IV SCH ×4 (05:55→19:45)
[2017-11-17] MEDS: diatr meglu/diatrizoate 30ml oral sol.-(3 dose) bottle PO SCH ×2 (06:00→09:06)
[2017-11-17] MEDS ORDERED: diatrozoate meglu/diatrozoate sod (37% iodine) 120ML oral solution PO ONE (06:00)
[2017-11-17] MEDS: midazolam 100mg in NS 100ml 100 ML IV PRN (06:01)
[2017-11-17] MEDS ORDERED: epoetin 20,000 units/ml inj IV ONE (07:30)
[2017-11-17] MEDS ORDERED: albumin (human) 25% 100ml IV 100 ML IV PRN (07:30)
[2017-11-17] MEDS ORDERED: heparin 1,000 units/ml 10ml inj HE ONE ×2 (07:30)
[2017-11-17] MEDS: cefepime 1GM/NS ADD-VANTAGE 100 ML IV SCH (07:37)
[2017-11-17] MEDS: K, MAG and/or Phos replacement - Verify level? MC SCH (08:00)
[2017-11-17] MEDS: micafungin inj 100 MG in normal saline 100ml IV soln 100 ML IV SCH (08:06)
[2017-11-17] MEDS: pantoprazole 40 MG vial IV SCH ×2 (08:07→19:27)
[2017-11-17] MEDS: iron sucrose complex injection 200 MG in normal saline 100ml IV soln 100 ML IV SCH (10:04)
[2017-11-17 10:23] LABS: HEMATOCRIT 25.8 % (42.0-52.0); HEMOGLOBIN 8.6 g/dl (14.0-17.9); MEAN CORPUSCULAR HEMOGLOBIN 29.5 PG (27.0-31.0); MEAN CORPUSCULAR HGB CONC 33.4 % (33.0-36.5); MEAN CORPUSCULAR VOLUME 88.2 FL (78-98); MEAN PLATELET VOLUME 7.5 FL (7.4-10.4); PLATELET COUNT 183 X10'3 (140-440); RED BLOOD COUNT 2.93 X10'6 (4.70-6.10)
[2017-11-17] MEDS: pyridostigmine br 60mg tablet PO SCH (14:59)
[2017-11-17 18:06] LABS: HEMATOCRIT 27.1 % (42.0-52.0); MEAN CORPUSCULAR HEMOGLOBIN 29.5 PG (27.0-31.0); MEAN CORPUSCULAR HGB CONC 33.4 % (33.0-36.5); MEAN CORPUSCULAR VOLUME 88.4 FL (78-98); MEAN PLATELET VOLUME 7.9 FL (7.4-10.4); PLATELET COUNT 191 X10'3 (140-440); RED BLOOD COUNT 3.06 X10'6 (4.70-6.10); RED CELL DISTRIBUTION WIDTH 20.2 % (11.5-14.5); WHITE BLOOD COUNT 17.7 X10'3 (4.5-11.0)
[2017-11-17 18:33] LABS: ANISOCYTOSIS 2+; PLATELET ESTIMATE NORMAL
[2017-11-17 18:34] LABS: SPHEROCYTES 1+
[2017-11-17 18:35] LABS: POLYCHROMASIA 1+
[2017-11-17] MEDS: insulin glargine (Lantus) pen - multi-dose SQ SCH (20:50)
[2017-11-17] MEDS: acetaminophen 325mg tablet PO PRN (22:41)
[2017-11-18] VITALS (11 sets, daily range): BP systolic 123–151; BP diastolic 51–62
[2017-11-18] MEDS: [UNRECOGNIZED DRUG - REMARK] IV SCH (00:42)
[2017-11-18] MEDS: pyridostigmine br 60mg tablet PO SCH (00:53)
[2017-11-18] MEDS: hydrocortisone sod succ/PF 100mg/2ml inj. IV SCH ×2 (02:29→07:32)
[2017-11-18] MEDS: amiodarone/D5 360MG/200ML BAG 200 ML IV SCH (02:33)
[2017-11-18 02:43] LABS: BASOPHILS % (AUTO) 0 % (0-1); EOSINOPHILS # (AUTO) 0.2 X10'3 (0-0.9); EOSINOPHILS % (AUTO) 1.6 % (0-6); HEMATOCRIT 24.9 % (42.0-52.0); HEMOGLOBIN 8.2 g/dl (14.0-17.9); LYMPHOCYTES # (AUTO) 0.6 X10'3 (1.1-4.8); MEAN CORPUSCULAR HEMOGLOBIN 29.1 PG (27.0-31.0); MEAN CORPUSCULAR HGB CONC 32.8 % (33.0-36.5); MEAN CORPUSCULAR VOLUME 88.8 FL (78-98); MEAN PLATELET VOLUME 8.1 FL (7.4-10.4); MONOCYTES # (AUTO) 0.6 X10'3 (0-0.9); MONOCYTES % (AUTO) 5.3 % (2-12); NEUTROPHILS # (AUTO) 10.7 X10'3 (1.8-7.7); NEUTROPHILS % (AUTO) 88.1 % (42-75); PLATELET COUNT 179 X10'3 (140-440); RED CELL DISTRIBUTION WIDTH 19.8 % (11.5-14.5); WHITE BLOOD COUNT 12.1 X10'3 (4.5-11.0)
[2017-11-18 02:54] LABS: INR 1.1 INR; PARTIAL THROMBOPLASTIN TIME 29 SECONDS (22-32); PROTHROMBIN TIME 11.2 SECONDS (9.0-12.0)
[2017-11-18] MEDS: VANCOMYCIN LEVEL IV SCH (03:00)
[2017-11-18 04:07] LABS: ALANINE AMINOTRANSFERASE 19 U/L (12-78); ALBUMIN 1.6 G/DL (3.4-5.0); ALBUMIN/GLOBULIN RATIO 0.4 (1.1-1.5); ALKALINE PHOSPHATASE 56 IU/L (46-116); ANION GAP 10 (8-16); ASPARTATE AMINO TRANSFERASE 13 U/L (10-37); BILIRUBIN,TOTAL 0.2 MG/DL (0.1-1.0); BLOOD UREA NITROGEN 47 MG/DL (7-18); BUN/CREATININE RATIO 17.5 (5.4-32.0); CALCIUM 7.8 MG/DL (8.5-10.1); CHLORIDE 101 MMOL/L (99-107); CREATININE 2.68 MG/DL (0.60-1.10); GLUCOSE 124 MG/DL (70-104); MAGNESIUM 1.4 MG/DL (1.5-2.4); PHOSPHORUS 2.1 MG/DL (2.3-4.5); SODIUM 135 MMOL/L (135-145); TOTAL CARBON DIOXIDE 24.5 MMOL/L (24-32); VANCOMYCIN,RANDOM 10.4 UG/ML; eGFR 23 ML/MIN
[2017-11-18 04:13] LABS: POTASSIUM 2.6 MMOL/L (3.5-5.1)
[2017-11-18] MEDS ORDERED: potassium Cl 40MEQ/250ML bag 500 ML IV ONE (04:15)
[2017-11-18] MEDS: acetaminophen 325mg tablet PO PRN (07:07)
[2017-11-18] MEDS: pantoprazole 40 MG vial IV SCH (07:30)
[2017-11-18] MEDS ORDERED: vancomycin inj 1,250 MG in normal saline 250ml IV soln 250 ML IV ONE (08:15)
[2017-11-18] MEDS: cefepime 1GM/NS ADD-VANTAGE 100 ML IV SCH (08:54)
[2017-11-18] MEDS: morphine 10mg/ml inj. IV PRN ×3 (11:40→20:26)
[2017-11-19] MEDS: morphine 10mg/ml inj. IV PRN ×2 (00:48→12:26)
[2017-11-20 06:01] LABS: HBSAG SCREEN Negative (Negative)
== END 2017-11-19 12:33 | disposition hospice, home (50) | DRG 871 ==
LOC: ER 12:02 → ED HOLD 14:49 → EDBEDREQ 15:15 → CICU 2S 15:50
PROVIDERS: ADMIT Internal Medicine Critical Care Medicine; ATTEND Internal Medicine Critical Care Medicine
PROC: 5A1945Z Respiratory Ventilation, 24-96 Consecutive Hours (ICD-10-PCS; principal; 2017-11-15)
PROC: 0BH17EZ Insertion of Endotracheal Airway into Trachea, Via Natural or Artificial Opening (ICD-10-PCS; 2017-11-15)
PROC: 06HM33Z Insertion of Infusion Device into Right Femoral Vein, Percutaneous Approach (ICD-10-PCS; 2017-11-16)
PROC: 5A1D70Z Performance of Urinary Filtration, Intermittent, Less than 6 Hours Per Day (ICD-10-PCS; 2017-11-17)
DX: A41.9 Sepsis, unspecified organism (principal); J69.0 Pneumonitis due to inhalation of food and vomit; J96.00 Acute respiratory failure, unspecified whether with hypoxia or hypercapnia; N17.9 Acute kidney failure, unspecified; K63.2 Fistula of intestine; E03.9 Hypothyroidism, unspecified; G70.00 Myasthenia gravis without (acute) exacerbation; I48.91 Unspecified atrial fibrillation; K21.9 Gastro-esophageal reflux disease without esophagitis; N40.0 Benign prostatic hyperplasia without lower urinary tract symptoms; Z51.5 Encounter for palliative care; Z66 Do not resuscitate; Z79.01 Long term (current) use of anticoagulants; Z79.899 Other long term (current) drug therapy; Z86.718 Personal history of other venous thrombosis and embolism; Z87.891 Personal history of nicotine dependence
CPT/HCPCS: 36415; 36600; 71045; 71250; 74176; 80053; 80202; 81001; 82150; 82272; 82803; 82810; 82948; 83036; 83540; 83550; 83605; 83690; 83735; 84100; 84134; 84145; 84439; 84443; 84478; 85018; 85025; 85027; 85610; 85730; 86885; 86900; 86901; 87040; 87070; 87075; 87077; 87088; 87102; 87185; 87186; 87324; 87340; 87449; 93005; 94002; 94003; 94640; 94760; 99291; A4315; A4421; A6212; A6213; A6250; A6449; A7015; C1751; C1758; C9113; G0257; J0692; J0885; J1644; J1720; J1756; J1815; J2248; J2250; J2270; J3370; J3480; J3490; J7030; Q9963